=== PATIENT | female | born 1965 | race Caucasian/White ===

== ENCOUNTER 2022-06-16 17:51 | Inpatient (IN) | payer OTHER, SELFPAY ==
--- NOTE | ~2022-06-16 | XR_ITS ---
EXAMINATION: XR CHEST CLINICAL INFORMATION: Cough, fever, shortness of breath COMPARISON: None available. TECHNIQUE: Frontal and lateral views of the chest were obtained. FINDINGS: Frontal and lateral chest radiographs show patchy airspace opacities in the posterior left lower lobe. The right lung is clear. The cardiomediastinal silhouette is unremarkable. XR/XR chest 2V IMPRESSION: Patchy left lung base airspace opacities consistent with atelectasis or pneumonia. Follow-up is recommended to confirm clearing.
--- NOTE | 2022-06-16 18:17 | ECG_ITS ---
Test Reason : SOB Blood Pressure : / mmHG Vent. Rate : 095 BPM Atrial Rate : 095 BPM P-R Int : 164 ms QRS Dur : 080 ms QT Int : 326 ms P-R-T Axes : 021 001 -05 degrees QTc Int : 409 ms Normal sinus rhythm Inferior infarct , age undetermined Cannot rule out Anterior infarct , age undetermined Abnormal ECG No previous ECGs available Referred By: Cheyenne Taylor Electronically Signed By:YADIRA LONG
--- NOTE | 2022-06-16 18:20 | ED.URI ---
HPI - URI/Sore Throat General Chief Complaint: Upper Respiratory Symptoms <RACHEL Bruce - Last Filed: 06/16/22 20:07> Stated Complaint: dizziness/ coughing <RACHEL Bruce - Last Filed: 06/16/22 20:07> Time Seen by Provider: 06/16/22 18:41 <RACHEL Bruce - Last Filed: 06/16/22 20:07> Source: patient <Brianna Mi MD - Last Filed: 06/16/22 20:19> Mode of arrival: ambulatory <Brianna Mi MD - Last Filed: 06/16/22 20:19> History of Present Illness HPI Narrative: This is a 56-year-old female who quit smoking approximately 3 months ago and then 2 weeks ago states that she developed a cough with chest congestion and she followed up with her physician who then start her on 1 week of antibiotics, patient states that she felt better initially but has progressively worsened since completion of the antibiotics. Patient reports associated fever, chills but no sore throat and states that her ears have pain but it feels more like she is congested. Patient also reports increasing shortness of breath and body aches as well as a headache. She denies any recent travel, calf pain or swelling. <Brianna Mi MD - Last Filed: 06/16/22 20:19> Related Data Allergies/Adverse Reactions: Allergies Allergy/AdvReac Type Severity Reaction Status Date / Time Erythromycin Allergy Unknown Dizzy Uncoded 05/03/14 00:00 <RACHEL Bruce - Last Filed: 06/16/22 20:07> Review of Systems Review of Systems: Pertinent positives and negatives as stated in HPI <Brianna Mi MD - Last Filed: 06/16/22 20:19> PMFSH Past Medical History Source: nursing notes reviewed <Brianna Mi MD - Last Filed: 06/16/22 20:19> Medical History: Medical History (Updated 06/16/22 @ 20:19 by Brianna Mi MD) Mood disorder <RACHEL Bruce - Last Filed: 06/16/22 20:07> Social History Social History: Social History Advance Directives: No Advance Directives Information Provided: Yes <RACHEL Bruce - Last Filed: 06/16/22 20:07> Physical Exam Vital Signs: Vital Signs: Last Vital Signs Temp 101.0 F H 06/16/22 18:27 Pulse 96 06/16/22 18:27 Resp 20 06/16/22 18:27 BP 159/93 H 06/16/22 18:27 Pulse Ox 92 06/16/22 18:27 O2 Del Method Room Air 06/16/22 18:27 BMI result Body Mass Index 35.4 <RACHEL Bruce - Last Filed: 06/16/22 20:07> Vital Signs: Last Vital Signs Temp 101.0 F H 06/16/22 18:27 Pulse 96 06/16/22 18:27 Resp 20 06/16/22 18:27 BP 159/93 H 06/16/22 18:27 Pulse Ox 92 06/16/22 18:27 O2 Del Method Room Air 06/16/22 18:27 BMI result Body Mass Index 35.4 VITAL SIGNS: Reviewed. GENERAL: Well developed, well nourished, in no acute distress. HEAD: Normocephalic/atraumatic EYES: PERRLA, EOMI EARS: Ext canals without abnormality NOSE: Nares patent bilateral OROPHARYNX: no oral lesions noted, posterior pharynx clear NECK: Supple, no adenopathy LUNGS: Good inspiratory effort, decreased breath sounds left lower base, tachypnea is present, patient had to be placed on supplemental oxygen due to 89% O2 sats and has responded well. SpO2<93> on supplemental oxygen CARDIOVASCULAR: Regular rate and rhythm without noted murmurs, no JVD or lower extremity edema. ABDOMEN: Soft, non-tender, non-distended with bowel sounds. MUSCULOSKELETAL: No tenderness, deformities, or effusions noted on gross inspection. EXTREMITIES: No cyanosis, clubbing or edema. SKIN: Inspection of the skin reveals no rashes NEUROLOGIC: Alert and oriented x 4. Strength and sensation to light touch were grossly intact x 4. <Brianna iM MD - Last Filed: 06/16/22 20:19> Course Course Course Narrative: HANG-18:20PM - 56yoF who is presenting to the ER with complaints of 2 weeks of headaches, dizziness, general weakness, fatigue, chills, body aches, cough that has been productive intermittently and shortness of breath. Reports she is a daily smoker. Reports that she has been having an on and off cough since although this has worsened. She did take her temperature today at work and was 99.0. She admits to posttussive emesis. She denies any recent travel or sick contacts. She denies any changes in vision, neck pain/stiffness, sore throat, trouble swallowing or breathing, chest pain, dyspnea on exertion orthopnea, palpitations, paresthesias, nausea/vomiting/diarrhea, abdominal pain, leg swelling, calf tenderness, rashes or any other symptoms complaints or concerns at this time Plan: In triage she is tachycardic and febrile therefore 800 mg of Motrin or at this time along with blood cultures, lactic acid, chest x-ray, COVID/RSV/flu swab. Patient will be seen in the ED for further evaluation treatment. <RACHEL Bruce - Last Filed: 06/16/22 20:07> Medications Administered Discontinued Medications Generic Name Dose Route Start Last Admin Trade Name Freq PRN Reason Stop Dose Admin Ibuprofen 800 mg 06/16/22 18:16 06/16/22 19:10 Ibuprofen 800 Mg Tablet PO 06/16/22 18:17 800 mg ONCE ONE Administration <RACHEL Bruce - Last Filed: 06/16/22 20:07> Medications Administered Discontinued Medications Generic Name Dose Route Start Last Admin Trade Name Freq PRN Reason Stop Dose Admin Ibuprofen 800 mg 06/16/22 18:16 06/16/22 19:10 Ibuprofen 800 Mg Tablet PO 06/16/22 18:17 800 mg ONCE ONE Administration <Brianna Mi MD - Last Filed: 06/16/22 20:19> Medical Decision Making Medical Decision Making [facility] Narrative: 194: 56-year-old female with suspicion for underlying respiratory infection, I reviewed all investigations and suggestion of left lower lobe pneumonia, patient noted to be influenza A positive but given persistent shortness of breath/hypoxia in combination with persistent cough suspect superimposed bacterial infection despite lack of leukocytosis. Patient will receive antibiotics. <Brianna Mi MD - Last Filed: 06/16/22 20:19> Differential Diagnosis Please see the discussion above <Brianna Mi MD - Last Filed: 06/16/22 20:19> Consult Healthcare Provider Management of the patient was discussed with: Hospitalist <Brianna Mi MD - Last Filed: 06/16/22 20:19> 2000: I discussed the case with the inpatient hospitalist who accepts admission. <Brianna Mi MD - Last Filed: 06/16/22 20:19> Lab Data Please see the discussion above <Brianna Mi MD - Last Filed: 06/16/22 20:19> Result Diagrams: 06/16/22 18:27 06/16/22 18:27 <RACHEL Bruce - Last Filed: 06/16/22 20:07> Labs: Lab Results 06/16/22 06/16/22 06/16/22 Range/Units 18:27 18:27 18:27 WBC 6.3 (4.8-10.8) X10*3/uL RBC 4.61 (4.20-5.50) X10*6/uL Hgb 13.5 (12.0-16.0) g/dl Hct 41.4 (37.0-47.0) % MCV 89.8 (80.0-98.0) fL MCH 29.3 (27.0-33.0) pg MCHC 32.6 (31.0-35.0) g/dl RDW 14.6 (11.0-16.0) % Plt Count 285 (160-400) X10*3/uL MPV 9.6 (9.4-12.3) fL Immature Gran % (Auto) 0.2 (0.0-0.4) % Neut % (Auto) 81.0 H (45-73) % Lymph % (Auto) 6.2 L (20-40) % [place] % (Auto) 11.3 H (2-11) % Eos % (Auto) 0.5 (0-4) % Baso % (Auto) 0.8 (0-2) % Lymph # (Auto) 0.4 L (1.2-4.9) X10*3/uL [place] # (Auto) 0.7 (0.1-1.2) X10*3/uL Eos # (Auto) 0.0 (0.0-0.4) X10*3/uL Baso # (Auto) 0.1 (0.0-0.2) X10*3/uL Abs Immat Gran (auto) 0.01 (0.00-0.03) X10*3/uL Absolute Neuts (auto) 5.1 (2.0-8.3) x10*3/uL Absolute Nucleated RBC 0.000 (0.0-0.012) X10*3/uL Nucleated RBC % (auto) 0.0 (0.0-0.2) /100WBC PT 11.4 (10.0-13.1) SEC INR 1.0 (0.9-1.1) Sodium 135 (135-145) mmol/L Potassium 4.0 (3.3-5.1) mmol/L Chloride 103 (96-108) mmol/L Carbon Dioxide 23 (22-29) mmol/L Anion Gap 13 (12-20) BUN 11 (9-16) mg/dL Creatinine 0.81 (0.5-1.4) mg/dL Estim Creat Clear Calc 84.8 Estimated GFR > 60 Random Glucose 87 (60-115) mg/dL Lactic Acid (0.5-2.0) mmol/L Calcium 8.5 (8.4-10.2) mg/dL Magnesium 1.8 (1.6-2.6) mg/dL Total Bilirubin 0.5 (0.0-1.0) mg/dL AST 17 (5-31) U/L ALT 14 (0-31) U/L Alkaline Phosphatase 62 (39-117) U/L Total Protein 6.8 (6.5-8.0) g/dL Albumin 3.8 (3.5-5.0) g/dL Influenza Type A (PCR) (Negative) Influenza Type B (PCR) (Negative) RSV RNA Qual (PCR) (Negative) SARS-CoV-2 RNA (RT-PCR) (Negative) 06/16/22 06/16/22 Range/Units 18:27 18:27 WBC (4.8-10.8) X10*3/uL RBC (4.20-5.50) X10*6/uL Hgb (12.0-16.0) g/dl Hct (37.0-47.0) % MCV (80.0-98.0) fL MCH (27.0-33.0) pg MCHC (31.0-35.0) g/dl RDW (11.0-16.0) % Plt Count (160-400) X10*3/uL MPV (9.4-12.3) fL Immature Gran % (Auto) (0.0-0.4) % Neut % (Auto) (45-73) % Lymph % (Auto) (20-40) % [place] % (Auto) (2-11) % Eos % (Auto) (0-4) % Baso % (Auto) (0-2) % Lymph # (Auto) (1.2-4.9) X10*3/uL [place] # (Auto) (0.1-1.2) X10*3/uL Eos # (Auto) (0.0-0.4) X10*3/uL Baso # (Auto) (0.0-0.2) X10*3/uL Abs Immat Gran (auto) (0.00-0.03) X10*3/uL Absolute Neuts (auto) (2.0-8.3) x10*3/uL Absolute Nucleated RBC (0.0-0.012) X10*3/uL Nucleated RBC % (auto) (0.0-0.2) /100WBC PT (10.0-13.1) SEC INR (0.9-1.1) Sodium (135-145) mmol/L Potassium (3.3-5.1) mmol/L Chloride (96-108) mmol/L Carbon Dioxide (22-29) mmol/L Anion Gap (12-20) BUN (9-16) mg/dL Creatinine (0.5-1.4) mg/dL Estim Creat Clear Calc Estimated GFR Random Glucose (60-115) mg/dL Lactic Acid 1.1 (0.5-2.0) mmol/L Calcium (8.4-10.2) mg/dL Magnesium (1.6-2.6) mg/dL Total Bilirubin (0.0-1.0) mg/dL AST (5-31) U/L ALT (0-31) U/L Alkaline Phosphatase (39-117) U/L Total Protein (6.5-8.0) g/dL Albumin (3.5-5.0) g/dL Influenza Type A (PCR) POSITIVE A (Negative) Influenza Type B (PCR) NEGATIVE (Negative) RSV RNA Qual (PCR) NEGATIVE (Negative) SARS-CoV-2 RNA (RT-PCR) NEGATIVE (Negative) <RACHEL Bruce - Last Filed: 06/16/22 20:07> Lab Results 06/16/22 06/16/22 06/16/22 Range/Units 18:27 18:27 18:27 WBC 6.3 (4.8-10.8) X10*3/uL RBC 4.61 (4.20-5.50) X10*6/uL Hgb 13.5 (12.0-16.0) g/dl Hct 41.4 (37.0-47.0) % MCV 89.8 (80.0-98.0) fL MCH 29.3 (27.0-33.0) pg MCHC 32.6 (31.0-35.0) g/dl RDW 14.6 (11.0-16.0) % Plt Count 285 (160-400) X10*3/uL MPV 9.6 (9.4-12.3) fL Immature Gran % (Auto) 0.2 (0.0-0.4) % Neut % (Auto) 81.0 H (45-73) % Lymph % (Auto) 6.2 L (20-40) % [place] % (Auto) 11.3 H (2-11) % Eos % (Auto) 0.5 (0-4) % Baso % (Auto) 0.8 (0-2) % Lymph # (Auto) 0.4 L (1.2-4.9) X10*3/uL [place] # (Auto) 0.7 (0.1-1.2) X10*3/uL Eos # (Auto) 0.0 (0.0-0.4) X10*3/uL Baso # (Auto) 0.1 (0.0-0.2) X10*3/uL Abs Immat Gran (auto) 0.01 (0.00-0.03) X10*3/uL Absolute Neuts (auto) 5.1 (2.0-8.3) x10*3/uL Absolute Nucleated RBC 0.000 (0.0-0.012) X10*3/uL Nucleated RBC % (auto) 0.0 (0.0-0.2) /100WBC PT 11.4 (10.0-13.1) SEC INR 1.0 (0.9-1.1) Sodium 135 (135-145) mmol/L Potassium 4.0 (3.3-5.1) mmol/L Chloride 103 (96-108) mmol/L Carbon Dioxide 23 (22-29) mmol/L Anion Gap 13 (12-20) BUN 11 (9-16) mg/dL Creatinine 0.81 (0.5-1.4) mg/dL Estim Creat Clear Calc 84.8 Estimated GFR > 60 Random Glucose 87 (60-115) mg/dL Lactic Acid (0.5-2.0) mmol/L Calcium 8.5 (8.4-10.2) mg/dL Magnesium 1.8 (1.6-2.6) mg/dL Total Bilirubin 0.5 (0.0-1.0) mg/dL AST 17 (5-31) U/L ALT 14 (0-31) U/L Alkaline Phosphatase 62 (39-117) U/L Total Protein 6.8 (6.5-8.0) g/dL Albumin 3.8 (3.5-5.0) g/dL Influenza Type A (PCR) (Negative) Influenza Type B (PCR) (Negative) RSV RNA Qual (PCR) (Negative) SARS-CoV-2 RNA (RT-PCR) (Negative) 06/16/22 06/16/22 Range/Units 18:27 18:27 WBC (4.8-10.8) X10*3/uL RBC (4.20-5.50) X10*6/uL Hgb (12.0-16.0) g/dl Hct (37.0-47.0) % MCV (80.0-98.0) fL MCH (27.0-33.0) pg MCHC (31.0-35.0) g/dl RDW (11.0-16.0) % Plt Count (160-400) X10*3/uL MPV (9.4-12.3) fL Immature Gran % (Auto) (0.0-0.4) % Neut % (Auto) (45-73) % Lymph % (Auto) (20-40) % [place] % (Auto) (2-11) % Eos % (Auto) (0-4) % Baso % (Auto) (0-2) % Lymph # (Auto) (1.2-4.9) X10*3/uL [place] # (Auto) (0.1-1.2) X10*3/uL Eos # (Auto) (0.0-0.4) X10*3/uL Baso # (Auto) (0.0-0.2) X10*3/uL Abs Immat Gran (auto) (0.00-0.03) X10*3/uL Absolute Neuts (auto) (2.0-8.3) x10*3/uL Absolute Nucleated RBC (0.0-0.012) X10*3/uL Nucleated RBC % (auto) (0.0-0.2) /100WBC PT (10.0-13.1) SEC INR (0.9-1.1) Sodium (135-145) mmol/L Potassium (3.3-5.1) mmol/L Chloride (96-108) mmol/L Carbon Dioxide (22-29) mmol/L Anion Gap (12-20) BUN (9-16) mg/dL Creatinine (0.5-1.4) mg/dL Estim Creat Clear Calc Estimated GFR Random Glucose (60-115) mg/dL Lactic Acid 1.1 (0.5-2.0) mmol/L Calcium (8.4-10.2) mg/dL Magnesium (1.6-2.6) mg/dL Total Bilirubin (0.0-1.0) mg/dL AST (5-31) U/L ALT (0-31) U/L Alkaline Phosphatase (39-117) U/L Total Protein (6.5-8.0) g/dL Albumin (3.5-5.0) g/dL Influenza Type A (PCR) POSITIVE A (Negative) Influenza Type B (PCR) NEGATIVE (Negative) RSV RNA Qual (PCR) NEGATIVE (Negative) SARS-CoV-2 RNA (RT-PCR) NEGATIVE (Negative) <Brianna Mi MD - Last Filed: 06/16/22 20:19> Independent Interpretation I performed an independent interpretation of an: EKG <Brianna Mi MD - Last Filed: 06/16/22 20:19> Interpretation: Normal sinus rhythm, HR-95, no STEMI, NE/QRS/QTC are within normal limits. <Brianna Mi MD - Last Filed: 06/16/22 20:19> Radiology Impression Radiologist Impression: My interpretation is in agreement with radiology's impression of the imaging studies. <Brianna iM MD - Last Filed: 06/16/22 20:19> Discharge Plan Discharge Clinical Impression: Acute respiratory failure with hypoxia, Pneumonia, Viral syndrome, Influenza A <RACHEL Bruce - Last Filed: 06/16/22 20:07> Patient Disposition: Admitted As Inpatient <RACHEL Bruce - Last Filed: 06/16/22 20:07>
[2022-06-16 18:27] VITALS: BP 159/93; PULSE 96; RESP 20; TEMP 38.3; O2SAT 92; BMI 35.4
[2022-06-16 18:37] LABS: Basophils Absolute Auto 0.1 X10*3/uL (0.0-0.2); Basophils Percent Auto 0.8 % (0-2); Eosinophils Percent Auto 0.5 % (0-4); Hematocrit 41.4 % (37.0-47.0); Hemoglobin 13.5 g/dl (12.0-16.0); Imm Gran Abs Auto 0.01 X10*3/uL (0.00-0.03); Imm Gran Pct Auto 0.2 % (0.0-0.4); Lymphocytes Absolute Auto 0.4 X10*3/uL (1.2-4.9); Lymphocytes Percent Auto 6.2 % (20-40); MANUAL DIFF FLAG NO; Mean Corpuscular HGB Conc 32.6 g/dl (31.0-35.0); Mean Corpuscular Hemoglobin 29.3 pg (27.0-33.0); Mean Corpuscular Volume 89.8 fL (80.0-98.0); Mean Platelet Volume 9.6 fL (9.4-12.3); Monocytes Absolute Auto 0.7 X10*3/uL (0.1-1.2); Monocytes Percent Auto 11.3 % (2-11); Neutrophils Absolute Auto 5.1 x10*3/uL (2.0-8.3); Platelet Count 285 X10*3/uL (160-400); Red Blood Count 4.61 X10*6/uL (4.20-5.50); Red Cell Distribution Width 14.6 % (11.0-16.0); White Blood Count 6.3 X10*3/uL (4.8-10.8)
[2022-06-16 18:46] LABS: Prothrombin Time 11.4 SEC (10.0-13.1)
[2022-06-16 18:54] LABS: Lactic Acid 1.1 mmol/L (0.5-2.0)
[2022-06-16 19:01] LABS: Alanine Aminotransferase 14 U/L (0-31); Albumin Level 3.8 g/dL (3.5-5.0); Alkaline Phosphatase 62 U/L (39-117); Anion Gap 13 (12-20); Aspartate Amino Transferase 17 U/L (5-31); Bilirubin Total 0.5 mg/dL (0.0-1.0); Blood Urea Nitrogen 11 mg/dL (9-16); Calcium 8.5 mg/dL (8.4-10.2); Carbon Dioxide 23 mmol/L (22-29); Chloride 103 mmol/L (96-108); Creatinine Clr Calc Pharmacy 84.8; Estimated Glomerular Filt Rate > 60; Glucose Random 87 mg/dL (60-115); Magnesium 1.8 mg/dL (1.6-2.6); Sodium 135 mmol/L (135-145); Total Protein 6.8 g/dL (6.5-8.0)
[2022-06-16] MEDS: Ibuprofen 800 MG TABLET PO (19:10)
[2022-06-16 19:49] LABS: Influenza A PCR POSITIVE (Negative); Influenza B PCR NEGATIVE (Negative); Resp Syncy Virus RNA Qual PCR NEGATIVE (Negative); SARS COV2 PCR INHOUSE NEGATIVE (Negative)
--- NOTE | 2022-06-16 20:03 | PM.IMHP ---
History of Present Illness Date of Service: 06/16/22 Chief Complaint: Dyspnea This is a 56-year-old female with pertinent history of mood disorder, former tobacco use disorder who presents to the emergency department for evaluation of dyspnea, cough, fevers/chills. Patient states she has had fever and chills for the last 2 weeks. It initially got better and about 5-6 days ago she developed a productive cough and restarted to have fevers and chills. Patient states she quit smoking. Also has associated generalized malaise and poor p.o. intake. Patient's dyspnea is worse with exertion. No wheezing. Sputum is yellowish/whitish in color. Patient denies chest discomfort, palpitations, abdominal pain, changes in urinary or bowel habits. Patient finished amoxicillin for possible upper respiratory tract infection given by PCP. In the emergency department, patient requiring 2 L supplemental oxygen. Review of Systems Constitutional: Constitutional: Reports chills, Reports fever(s), Reports lethargy and Reports malaise Cardiovascular: Cardiovascular: Reports dyspnea and Reports dyspnea on exertion Respiratory: Respiratory: Reports change in phlegm color, Reports cough, Reports dyspnea and Reports dyspnea on exertion PMFSH Medical History Mood disorder Functional capacity: independent ambulation Pertinent family history: No family history of CAD Social History Advance Directives: No Advance Directives Information Provided: Yes Meds Allergies Allergy/AdvReac Type Severity Reaction Status Date / Time Erythromycin Allergy Unknown Dizzy Uncoded 05/03/14 00:00 Active Medications: Current Medications Acetaminophen (Acetaminophen 325 Mg Tablet) 650 mg PO Q6H PRN PRN Reason: Pain, Mild (Pain Scale 1-3) Enoxaparin Sodium (Enoxaparin Sodium 40 Mg/0.4 Ml Syringe) 40 mg SUBCUT Q24H DARIA Sodium Chloride (Ns) 1,000 mls @ 999 mls/hr IV .Q1H1M [facility] Stop: 06/16/22 21:00 Sodium Chloride (0.9 % Sodium Chloride Flush 3 Ml Syringe) 3 ml IVFLUSH QSHIFT DARIA Physical Exam Vital Signs and Narrative: Vital Signs: Last Vital Signs Temp 101.0 F H 06/16/22 18:27 Pulse 96 06/16/22 18:27 Resp 20 06/16/22 18:27 BP 159/93 H 06/16/22 18:27 Pulse Ox 92 06/16/22 18:27 O2 Del Method Room Air 06/16/22 18:27 BMI result Body Mass Index 35.4 Middle-aged female lying in bed in mild distress on supplemental oxygen Neck supple, no JVD Regular rate and rhythm, S1-S2 heard Left-sided crackles without wheezing Abdomen soft nontender, no guarding, no rigidity Patient is awake, alert and oriented to self, place, time and person ; no focal motor deficit Psych: Normal mood No pedal edema Results Labs 06/16/22 18:27 06/16/22 18:27 Labs: Laboratory Results - last 24 hr 06/16/22 06/16/22 06/16/22 18:27 18:27 18:27 MCV 89.8 MCH 29.3 MCHC 32.6 RDW 14.6 Plt Count 285 MPV 9.6 Immature Gran % (Auto) 0.2 Neut % (Auto) 81.0 H Lymph % (Auto) 6.2 L [place] % (Auto) 11.3 H Eos % (Auto) 0.5 Baso % (Auto) 0.8 Lymph # (Auto) 0.4 L [place] # (Auto) 0.7 Eos # (Auto) 0.0 Baso # (Auto) 0.1 Abs Immat Gran (auto) 0.01 Absolute Neuts (auto) 5.1 Absolute Nucleated RBC 0.000 Nucleated RBC % (auto) 0.0 PT 11.4 INR 1.0 Anion Gap 13 Estim Creat Clear Calc 84.8 Estimated GFR > 60 Random Glucose 87 Lactic Acid Calcium 8.5 Magnesium 1.8 Total Bilirubin 0.5 AST 17 ALT 14 Alkaline Phosphatase 62 Total Protein 6.8 Albumin 3.8 Influenza Type A (PCR) Influenza Type B (PCR) RSV RNA Qual (PCR) SARS-CoV-2 RNA (RT-PCR) 06/16/22 06/16/22 18:27 18:27 MCV MCH MCHC RDW Plt Count MPV Immature Gran % (Auto) Neut % (Auto) Lymph % (Auto) [place] % (Auto) Eos % (Auto) Baso % (Auto) Lymph # (Auto) [place] # (Auto) Eos # (Auto) Baso # (Auto) Abs Immat Gran (auto) Absolute Neuts (auto) Absolute Nucleated RBC Nucleated RBC % (auto) PT INR Anion Gap Estim Creat Clear Calc Estimated GFR Random Glucose Lactic Acid 1.1 Calcium Magnesium Total Bilirubin AST ALT Alkaline Phosphatase Total Protein Albumin Influenza Type A (PCR) POSITIVE A Influenza Type B (PCR) NEGATIVE RSV RNA Qual (PCR) NEGATIVE SARS-CoV-2 RNA (RT-PCR) NEGATIVE Imaging Radiologist's Impressions: Impressions Chest X-Ray 06/16/22 19:15 IMPRESSION: Patchy left lung base airspace opacities consistent with atelectasis or pneumonia. Follow-up is recommended to confirm clearing. Assessment and Plan (1) Hypoxia: Status: Acute Plan This is a 56-year-old female with pertinent history of mood disorder, former tobacco use disorder who presents to the emergency department for evaluation of dyspnea, cough, fevers/chills. #. Acute hypoxemic respiratory failure and sepsis due to influenza a infection with concerns of bacterial superinfection: Will admit patient with isolation precautions. Initiating Tamiflu and empiric IV antibiotics. Resuscitated with IV crystalloids. Blood culture and sputum culture obtained. #. Mood disorder: Continue Lexapro and Wellbutrin Med rec pending DVT prophylaxis: Lovenox 40 mg daily Full code Regular diet Admit as inpatient and will require two night minimum hospital stay for supplemental oxygen and IV antibiotics Time Spent With Patient Time: Total time managing care of this patient today ____ minutes. Quality Stroke Does the patient have a stroke diagnosis?: No VTE Prior VTE?: No VTE Risk Level:: Medical - moderate - high VTE Device Contraindication: Treatment Not Indicated VTE Drug Contraindication: N/A - Med Ordered
[2022-06-16 20:21] VITALS: BP 130/77; PULSE 101; RESP 16; TEMP 37.1; O2SAT 87
[2022-06-16] MEDS: 0.9 % Sodium Chloride 1,000 ML 999 ML IV (20:21)
[2022-06-16 20:23] VITALS: O2SAT 92
[2022-06-16] MEDS: cefTRIAXone sodium 1 GM in 0.9 % Sodium Chloride 50 ML IV (20:52)
[2022-06-16] MEDS: Oseltamivir Phosphate 75 MG CAPSULE PO (20:52)
[2022-06-16] MEDS: Acetaminophen 325 MG TABLET 975 MG PO (20:52)
[2022-06-16 21:03] LABS: VBG Base Excess -0.4 mmol/L; VBG HCO3 22 mmol/L (22-26); VBG pCO2 33 mmHg; VBG pH 7.44 (7.32-7.43); VBG pO2 47 mmHg
[2022-06-16 21:04] LABS: Venous Blood Gas Refer to POC result
--- NOTE | 2022-06-16 21:16 | PC.NURSE ---
PT ENDURING FREQUENT COUGHING FITS, NON PRODUCTIVE. LS DIM THROUGHOUT. PT HYPOXIC TO 87% ON RA DESPITE ATTEMPTS TO RESTORE WITH DEEP BREATHING TECHNIQUES & REPOSITIONING. MD AWARE. PT HAS BEEN ON 2L SUPP O2 WITH SPO2 IN LOW 90S. NOW AFEBRILE, SKIN PWD. NSR ON MONITOR.
--- NOTE | 2022-06-16 21:25 | PHA.MEDREC ---
Pharmacy Consult ? Medication Reconciliation Pharmacy has completed the medication reconciliation. Patient has one day left of abx Lupillo
[2022-06-16] MEDS: Enoxaparin Sodium 40 MG/0.4 ML SYRINGE SUBCUT (22:03)
[2022-06-16] MEDS: Azithromycin 500 MG in 0.9 % Sodium Chloride 250 ML 125 MG IV (22:05)
[2022-06-16 22:20] VITALS: BP 109/61; PULSE 92; RESP 20; TEMP 37.1; O2SAT 94
[2022-06-17] VITALS (10 sets, daily range): BP systolic 114–157; BP diastolic 66–94; PULSE 62–89; RESP 16–24; TEMP 36.7–38.2; O2SAT 87–95; BMI 35.4
[2022-06-17] MEDS: Acetaminophen 325 MG TABLET 650 MG PO ×3 (04:37→21:41)
[2022-06-17 06:02] LABS: MANUAL DIFF FLAG NO
[2022-06-17 06:19] LABS: Anion Gap 14 (12-20); Blood Urea Nitrogen 8 mg/dL (9-16); Calcium 7.7 mg/dL (8.4-10.2); Carbon Dioxide 20 mmol/L (22-29); Chloride 108 mmol/L (96-108); Creatinine Clr Calc Pharmacy 101.1; Estimated Glomerular Filt Rate > 60; Glucose Random 95 mg/dL (60-115); Potassium 3.9 mmol/L (3.3-5.1); Sodium 138 mmol/L (135-145)
[2022-06-17 06:23] LABS: Basophils Percent Auto 0.7 % (0-2); Eosinophils Percent Auto 0.5 % (0-4); Hematocrit 36.8 % (37.0-47.0); Imm Gran Abs Auto 0.02 X10*3/uL (0.00-0.03); Imm Gran Pct Auto 0.5 % (0.0-0.4); Lymphocytes Absolute Auto 0.5 X10*3/uL (1.2-4.9); Lymphocytes Percent Auto 11.6 % (20-40); Mean Corpuscular HGB Conc 32.6 g/dl (31.0-35.0); Mean Corpuscular Hemoglobin 29.2 pg (27.0-33.0); Mean Corpuscular Volume 89.5 fL (80.0-98.0); Mean Platelet Volume 10.3 fL (9.4-12.3); Monocytes Absolute Auto 0.5 X10*3/uL (0.1-1.2); Monocytes Percent Auto 10.7 % (2-11); Neutrophils Absolute Auto 3.3 x10*3/uL (2.0-8.3); Platelet Count 231 X10*3/uL (160-400); Red Blood Count 4.11 X10*6/uL (4.20-5.50); Red Cell Distribution Width 14.6 % (11.0-16.0); White Blood Count 4.4 X10*3/uL (4.8-10.8)
--- NOTE | 2022-06-17 07:10 | PC.NURSE ---
Patient resting comfortably no distress noted tolerating O2 by nasal cannula remains isolation for flu. Will CTM
--- NOTE | 2022-06-17 07:42 | PC.NURSE ---
Attempt to call report to floor RN will call back
--- NOTE | 2022-06-17 07:45 | PC.NURSE ---
Report to Lucila HART
--- NOTE | 2022-06-17 08:49 | MHC.CM.PN ---
CM MET WITH PT AT BEDSIDE. PT LIVES WITH FAMILY IN A [facility]. INDEPENDENT AT BASELINE. EMPLOYED P/T. NO HCP, DECLINES AT THIS TIME. + COVID VAX X2 WITH PFI[employer]. PCP AT [facility] [place] (LANRE CERON) DP: HOME, NO SERVICES ANTICIPATED. FAMILY WILL TRANSPORT AT [place]. CM WILL CONTINUE TO FOLLOW.
[2022-06-17] MEDS: Oseltamivir Phosphate 75 MG CAPSULE PO ×2 (09:31→20:44)
[2022-06-17] MEDS: 0.9 % Sodium Chloride Flush 3 ML SYRINGE IVFLUSH ×2 (09:31→20:48)
[2022-06-17] MEDS: buPROPion HCl XL 150 MG TAB.ER.24H PO (09:31)
[2022-06-17] MEDS: predniSONE 20 MG TABLET 40 MG PO (09:31)
--- NOTE | 2022-06-17 12:17 | HO.PM.IMPN ---
Subjective Subjective Date of Service: 06/17/22 Interval History: weakness Physical Exam Vital Signs: Vital Signs: Last Vital Signs Temp 100.8 F H 06/17/22 11:21 Pulse 82 06/17/22 11:21 Resp 17 06/17/22 11:21 BP 143/81 H 06/17/22 11:21 Pulse Ox 92 06/17/22 11:21 O2 Del Method Room Air 06/17/22 11:21 O2 Flow Rate 2 06/17/22 07:23 BMI result Body Mass Index 35.4 weakn, tired, wheezy Objective Data Active Medications Acetaminophen (Acetaminophen 325 Mg Tablet) 650 mg PO Q6H PRN PRN Reason: Pain, Mild (Pain Scale 1-3) Last Admin: 06/17/22 10:50 Dose: 650 mg Documented By: PILI Acetaminophen (Acetaminophen Supp 650 Mg Supp.Rect) 650 mg [place] Q6H PRN PRN Reason: Pain, Mild (Pain Scale 1-3) Bupropion HCl (Bupropion Hcl Xl 150 Mg Tab.Er.24h) 150 mg PO DAILY [facility] Last Admin: 06/17/22 09:31 Dose: 150 mg Documented By: PILI Albuterol Sulfate 2.5 mg/ (Ipratropium [place] 0.5 mg) 0 mg INHALE RQ4H WHILE AWAKE [facility] Last Admin: 06/17/22 11:54 Dose: Not Given Documented By: ETHAN Non-Admin Reason: See Note Enoxaparin Sodium (Enoxaparin Sodium 40 Mg/0.4 Ml Syringe) 40 mg SUBCUT Q24H [facility] Last Admin: 06/16/22 22:03 Dose: 40 mg Documented By: QUYEN Escitalopram Oxalate (Escitalopram Oxalate 5 Mg Tablet) 5 mg PO BEDTIME [facility] Ceftriaxone Sodium 1 gm/ (Sodium Chloride) 50 mls @ 100 mls/hr IV Q24H [facility] Last Infusion: 06/16/22 21:43 Dose: 0 mls/hr Documented By: RASHMI Azithromycin 500 mg/ Sodium (Chloride) 250 mls @ 125 mls/hr IV Q24H [facility] Last Infusion: 06/17/22 00:25 Dose: 0 mls/hr Documented By: ABDOULAYE Melatonin (Melatonin 3 Mg Tablet) 6 mg PO BEDTIME PRN PRN Reason: Insomnia Ondansetron HCl (Ondansetron Hcl 4 Mg/2 Ml Vial) 4 mg IVPUSH Q8H PRN PRN Reason: Nausea and Vomiting Oseltamivir Phosphate (Oseltamivir Phosphate 75 Mg Capsule) 75 mg PO BID [facility] Stop: 06/21/22 09:01 Last Admin: 06/17/22 09:31 Dose: 75 mg Documented By: PILI Pharmacy Consult (Consult Rx Perform Med Rec) 1 each MISCELLANE ONCE PRN PRN Reason: Consult order Prednisone (Prednisone 20 Mg Tablet) 40 mg PO DAILY [facility] Last Admin: 06/17/22 09:31 Dose: 40 mg Documented By: PILI Sodium Chloride (0.9 % Sodium Chloride Flush 3 Ml Syringe) 3 ml IVFLUSH QSHIFT [facility] Last Admin: 06/17/22 09:31 Dose: 3 ml Documented By: PILI Labs 06/17/22 05:51 06/17/22 05:51 Labs: Laboratory Results - last 24 hr 06/16/22 06/16/22 06/16/22 18:27 18:27 18:27 MCV 89.8 MCH 29.3 MCHC 32.6 RDW 14.6 Plt Count 285 MPV 9.6 Immature Gran % (Auto) 0.2 Neut % (Auto) 81.0 H Lymph % (Auto) 6.2 L [place] % (Auto) 11.3 H Eos % (Auto) 0.5 Baso % (Auto) 0.8 Lymph # (Auto) 0.4 L [place] # (Auto) 0.7 Eos # (Auto) 0.0 Baso # (Auto) 0.1 Abs Immat Gran (auto) 0.01 Absolute Neuts (auto) 5.1 Absolute Nucleated RBC 0.000 Nucleated RBC % (auto) 0.0 PT 11.4 INR 1.0 VBG pH VBG pCO2 VBG pO2 VBG HCO3 VBG O2 Saturation VBG Base Excess Anion Gap 13 Estim Creat Clear Calc 84.8 Estimated GFR > 60 Random Glucose 87 Lactic Acid Calcium 8.5 Magnesium 1.8 Total Bilirubin 0.5 AST 17 ALT 14 Alkaline Phosphatase 62 Total Protein 6.8 Albumin 3.8 Influenza Type A (PCR) Influenza Type B (PCR) RSV RNA Qual (PCR) SARS-CoV-2 RNA (RT-PCR) 06/16/22 06/16/22 06/16/22 18:27 18:27 20:22 MCV MCH MCHC RDW Plt Count MPV Immature Gran % (Auto) Neut % (Auto) Lymph % (Auto) [place] % (Auto) Eos % (Auto) Baso % (Auto) Lymph # (Auto) [place] # (Auto) Eos # (Auto) Baso # (Auto) Abs Immat Gran (auto) Absolute Neuts (auto) Absolute Nucleated RBC Nucleated RBC % (auto) PT INR VBG pH 7.44 H VBG pCO2 33 VBG pO2 47 VBG HCO3 22 VBG O2 Saturation 79.0 VBG Base Excess -0.4 Anion Gap Estim Creat Clear Calc Estimated GFR Random Glucose Lactic Acid 1.1 Calcium Magnesium Total Bilirubin AST ALT Alkaline Phosphatase Total Protein Albumin Influenza Type A (PCR) POSITIVE A Influenza Type B (PCR) NEGATIVE RSV RNA Qual (PCR) NEGATIVE SARS-CoV-2 RNA (RT-PCR) NEGATIVE 06/17/22 06/17/22 05:51 05:51 MCV 89.5 MCH 29.2 MCHC 32.6 RDW 14.6 Plt Count 231 MPV 10.3 Immature Gran % (Auto) 0.5 H Neut % (Auto) 76.0 H Lymph % (Auto) 11.6 L [place] % (Auto) 10.7 Eos % (Auto) 0.5 Baso % (Auto) 0.7 Lymph # (Auto) 0.5 L [place] # (Auto) 0.5 Eos # (Auto) 0.0 Baso # (Auto) 0.0 Abs Immat Gran (auto) 0.02 Absolute Neuts (auto) 3.3 Absolute Nucleated RBC 0.000 Nucleated RBC % (auto) 0.0 PT INR VBG pH VBG pCO2 VBG pO2 VBG HCO3 VBG O2 Saturation VBG Base Excess Anion Gap 14 Estim Creat Clear Calc 101.1 Estimated GFR > 60 Random Glucose 95 Lactic Acid Calcium 7.7 L D Magnesium Total Bilirubin AST ALT Alkaline Phosphatase Total Protein Albumin Influenza Type A (PCR) Influenza Type B (PCR) RSV RNA Qual (PCR) SARS-CoV-2 RNA (RT-PCR) Assessment and Plan (1) Acute respiratory failure with hypoxia: Status: Acute Plan 56F with pertinent history of mood disorder, former tobacco use disorder who presented to the emergency department for evaluation of dyspnea, cough, fevers/chills. Acute hypoxemic respiratory failure and sepsis due to influenza a infection with concerns of bacterial superinfection and acute bronchitis tamiflu, prednisone, bronchodilators empiric rocpehin/azitrho Mood disorder Continue Lexapro and Wellbutrin DVT prophylaxis:? Lovenox 40 mg daily Full code reason for continued hospitalization: sob Time Spent With Patient Time: Total time managing care of this patient today ____ minutes. Quality Stroke Does the patient have a stroke diagnosis?: No VTE Prior VTE?: No VTE Risk Level:: Medical - moderate - high VTE Device Contraindication: Treatment Not Indicated VTE Drug Contraindication: N/A - Med Ordered
[2022-06-17] MEDS: Escitalopram Oxalate 5 MG TABLET PO (20:44)
[2022-06-17] MEDS: Enoxaparin Sodium 40 MG/0.4 ML SYRINGE SUBCUT (20:45)
[2022-06-17] MEDS: Melatonin 3 MG TABLET 6 MG PO (20:45)
[2022-06-17] MEDS: cefTRIAXone sodium 1 GM in 0.9 % Sodium Chloride 50 ML IV (20:52)
[2022-06-17] MEDS: Azithromycin 500 MG in 0.9 % Sodium Chloride 250 ML 125 MG IV (21:35)
[2022-06-18 03:42] VITALS: BP 122/80; PULSE 53; RESP 20; TEMP 36.4; O2SAT 91
[2022-06-18 07:18] LABS: Hematocrit 37.7 % (37.0-47.0); Hemoglobin 12.2 g/dl (12.0-16.0); Mean Corpuscular HGB Conc 32.4 g/dl (31.0-35.0); Mean Corpuscular Volume 89.5 fL (80.0-98.0); Mean Platelet Volume 9.9 fL (9.4-12.3); Platelet Count 232 X10*3/uL (160-400); Red Blood Count 4.21 X10*6/uL (4.20-5.50); Red Cell Distribution Width 14.7 % (11.0-16.0); White Blood Count 3.3 X10*3/uL (4.8-10.8)
[2022-06-18 07:27] LABS: Anion Gap 13 (12-20); Blood Urea Nitrogen 10 mg/dL (9-16); Calcium 7.8 mg/dL (8.4-10.2); Carbon Dioxide 23 mmol/L (22-29); Chloride 105 mmol/L (96-108); Creatinine Clr Calc Pharmacy 89.3; Estimated Glomerular Filt Rate > 60; Glucose Fasting 85 mg/dL (60-99); Potassium 3.5 mmol/L (3.3-5.1); Sodium 137 mmol/L (135-145)
[2022-06-18 08:00] VITALS: BP 120/77; PULSE 58; RESP 15; TEMP 36.9; O2SAT 91
[2022-06-18 08:26] LABS: Glucose, Whole Blood 87 mg/dL (60-115)
[2022-06-18] MEDS: predniSONE 20 MG TABLET 40 MG PO (08:37)
[2022-06-18] MEDS: 0.9 % Sodium Chloride Flush 3 ML SYRINGE IVFLUSH ×3 (08:38→23:58)
[2022-06-18] MEDS: buPROPion HCl XL 150 MG TAB.ER.24H PO (08:38)
[2022-06-18] MEDS: Oseltamivir Phosphate 75 MG CAPSULE PO ×2 (08:38→20:00)
--- NOTE | 2022-06-18 09:43 | P.PNIM_ITS ---
Subjective Subjective Date of Service: 06/18/22 Interval History: weakness Physical Exam Vital Signs: Vital Signs: Last Vital Signs Temp 98.4 F 06/18/22 08:00 Pulse 58 06/18/22 08:00 Resp 15 06/18/22 08:00 BP 120/77 06/18/22 08:00 Pulse Ox 91 L 06/18/22 08:00 O2 Del Method Room Air 06/18/22 08:00 O2 Flow Rate 2 06/17/22 07:23 BMI result Body Mass Index 35.4 weakn, tired, wheezy Objective Data Active Medications Acetaminophen (Acetaminophen 325 Mg Tablet) 650 mg PO Q6H PRN PRN Reason: Pain, Mild (Pain Scale 1-3) Last Admin: 06/17/22 21:41 Dose: 650 mg Documented By: TANI Acetaminophen (Acetaminophen Supp 650 Mg Supp.Rect) 650 mg [place] Q6H PRN PRN Reason: Pain, Mild (Pain Scale 1-3) Bupropion HCl (Bupropion Hcl Xl 150 Mg Tab.Er.24h) 150 mg PO DAILY [facility] Last Admin: 06/18/22 08:38 Dose: 150 mg Documented By: SANDRA Albuterol Sulfate 2.5 mg/ (Ipratropium [place] 0.5 mg) 0 mg INHALE RQ4H WHILE AWAKE [facility] Last Admin: 06/18/22 07:52 Dose: Not Given Documented By: CHAVA Non-Admin Reason: Patient Refused Enoxaparin Sodium (Enoxaparin Sodium 40 Mg/0.4 Ml Syringe) 40 mg SUBCUT Q24H [facility] Last Admin: 06/17/22 20:45 Dose: 40 mg Documented By: TANI Escitalopram Oxalate (Escitalopram Oxalate 5 Mg Tablet) 5 mg PO BEDTIME [facility] Last Admin: 06/17/22 20:44 Dose: 5 mg Documented By: TANI Ceftriaxone Sodium 1 gm/ (Sodium Chloride) 50 mls @ 100 mls/hr IV Q24H [facility] Last Infusion: 06/17/22 21:33 Dose: 0 mls/hr Documented By: TANI Azithromycin 500 mg/ Sodium (Chloride) 250 mls @ 125 mls/hr IV Q24H [facility] Last Infusion: 06/17/22 23:32 Dose: 0 mls/hr Documented By: TNAI Melatonin (Melatonin 3 Mg Tablet) 6 mg PO BEDTIME PRN PRN Reason: Insomnia Last Admin: 06/17/22 20:45 Dose: 6 mg Documented By: TANI Ondansetron HCl (Ondansetron Hcl 4 Mg/2 Ml Vial) 4 mg IVPUSH Q8H PRN PRN Reason: Nausea and Vomiting Oseltamivir Phosphate (Oseltamivir Phosphate 75 Mg Capsule) 75 mg PO BID [facility] Stop: 06/21/22 09:01 Last Admin: 06/18/22 08:38 Dose: 75 mg Documented By: SANDRA Pharmacy Consult (Consult Rx Perform Med Rec) 1 each MISCELLANE ONCE PRN PRN Reason: Consult order Prednisone (Prednisone 20 Mg Tablet) 40 mg PO DAILY [facility] Last Admin: 06/18/22 08:37 Dose: 40 mg Documented By: SANDRA Sodium Chloride (0.9 % Sodium Chloride Flush 3 Ml Syringe) 3 ml IVFLUSH QSHIFT [facility] Last Admin: 06/18/22 08:38 Dose: 3 ml Documented By: SANDRA Labs 06/18/22 06:43 06/18/22 06:43 Labs: Laboratory Results - last 24 hr 06/18/22 06/18/22 06/18/22 06:43 06:43 08:19 MCV 89.5 MCH 29.0 MCHC 32.4 RDW 14.7 Plt Count 232 MPV 9.9 Absolute Nucleated RBC 0.000 Nucleated RBC % (auto) 0.0 Anion Gap 13 Estim Creat Clear Calc 89.3 Estimated GFR > 60 POC Glucose 87 Fasting Glucose 85 Calcium 7.8 L Microbiology Microbiology Results: Microbiology 06/16/22 19:42 Blood Culture - Preliminary Blood - Venous No growth after 24 hours. 06/16/22 05:44 Blood Culture - Preliminary Blood - Venous No growth after 24 hours. 06/17/22 05:55 Gram Stain - Final Sputum - Expectorated Sputum Culture - Final Assessment and Plan (1) Acute respiratory failure with hypoxia: Status: Acute Plan 56F with pertinent history of mood disorder, former tobacco use disorder who presented to the emergency department for evaluation of dyspnea, cough, fevers/chills. Acute hypoxemic respiratory failure and sepsis due to influenza a infection with concerns of bacterial superinfection and acute bronchitis tamiflu, prednisone, bronchodilators empiric rocpehin/azitrho Mood disorder Continue Lexapro and Wellbutrin DVT prophylaxis:? Lovenox 40 mg daily Full code reason for continued hospitalization: sob, fevvers Time Spent With Patient Time: Total time managing care of this patient today ____ minutes. Quality Stroke Does the patient have a stroke diagnosis?: No VTE Prior VTE?: No VTE Risk Level:: Medical - moderate - high VTE Device Contraindication: Treatment Not Indicated VTE Drug Contraindication: N/A - Med Ordered
[2022-06-18 10:11] LABS: Appearance Urine Cloudy; Color Urine Yellow; Glucose Urine UA Negative (Negative); Leukocyte Esterase Urine Negative (Negative); Nitrite Urine Negative (Negative); PH 5.5 (5.0-9.0); Urine Blood Negative (Negative); Urine Ketones Negative (Negative); Urine Protein Negative (Neg-Trace)
[2022-06-18 11:27] VITALS: BP 122/77; PULSE 54; RESP 20; TEMP 37; O2SAT 90
[2022-06-18 15:30] VITALS: BP 132/85; PULSE 61; RESP 18; TEMP 36.9; O2SAT 92
[2022-06-18 19:12] VITALS: BP 112/68; PULSE 62; RESP 18; TEMP 36.8; O2SAT 90
[2022-06-18] MEDS: Escitalopram Oxalate 5 MG TABLET PO (20:00)
[2022-06-18] MEDS: cefTRIAXone sodium 1 GM in 0.9 % Sodium Chloride 50 ML IV (20:01)
[2022-06-18] MEDS: Azithromycin 500 MG in 0.9 % Sodium Chloride 250 ML 125 MG IV (20:09)
[2022-06-18] MEDS: Enoxaparin Sodium 40 MG/0.4 ML SYRINGE SUBCUT (22:45)
[2022-06-18 23:48] VITALS: BP 127/75; PULSE 67; RESP 18; TEMP 37.2; O2SAT 93
[2022-06-19 03:11] VITALS: BP 116/62; PULSE 80; RESP 18; TEMP 36.6; O2SAT 95
[2022-06-19 06:54] LABS: Hematocrit 38.1 % (37.0-47.0); Hemoglobin 12.5 g/dl (12.0-16.0); Mean Corpuscular HGB Conc 32.8 g/dl (31.0-35.0); Mean Corpuscular Volume 88.4 fL (80.0-98.0); Mean Platelet Volume 9.7 fL (9.4-12.3); Platelet Count 231 X10*3/uL (160-400); Red Blood Count 4.31 X10*6/uL (4.20-5.50); Red Cell Distribution Width 14.3 % (11.0-16.0); White Blood Count 4.3 X10*3/uL (4.8-10.8)
[2022-06-19 07:06] LABS: Anion Gap 14 (12-20); Blood Urea Nitrogen 11 mg/dL (9-16); Calcium 7.9 mg/dL (8.4-10.2); Carbon Dioxide 24 mmol/L (22-29); Chloride 105 mmol/L (96-108); Creatinine Clr Calc Pharmacy 89.3; Estimated Glomerular Filt Rate > 60; Glucose Fasting 79 mg/dL (60-99); Potassium 3.5 mmol/L (3.3-5.1); Sodium 139 mmol/L (135-145)
[2022-06-19 07:52] VITALS: BP 131/85; PULSE 51; RESP 20; TEMP 36.4; O2SAT 93
[2022-06-19 08:03] LABS: Glucose, Whole Blood 88 mg/dL (60-115)
--- NOTE | 2022-06-19 09:13 | P.DS_ITS ---
DS: Providers Provider Date of Service: 06/19/22 Date of admission: 06/16/22 20:01 Primary care physician: Crissy Saleh DS: Diagnosis Discharge Diagnosis (1) Acute respiratory failure with hypoxia: Status: Acute DS: Summary Hospital Course Hospital Course: from initial hpi: Chief Complaint: Dyspnea This is a 56-year-old female with pertinent history of mood disorder, former tobacco use disorder who presents to the emergency department for evaluation of dyspnea, cough, fevers/chills.? Patient states she has had fever and chills for the last 2 weeks.? It initially got better and about 5-6 days ago she developed a productive cough and restarted to have fevers and chills.? Patient states she quit smoking.? Also has associated generalized malaise and poor p.o. intake.? Patient's dyspnea is worse with exertion.? No wheezing.? Sputum is yellowish/whitish in color.? Patient denies chest discomfort, palpitations, abdominal pain, changes in urinary or bowel habits.? Patient finished amoxicillin for possible upper respiratory tract infection given by PCP. In the emergency department, patient requiring 2 L supplemental oxygen. hospital course: Patient was admitted for acute hypoxic respiratory failure and sepsis due to influenza a with concerns for bacterial superinfection complicated by acute bronchitis. Patient was treated with Tamiflu, prednisone, DuoNebs, Rocephin and azithromycin. Symptoms improved patient was able to be weaned off oxygen. She will be discharged on 5 more days of prednisone, 2 more days of Tamiflu, Augmentin. For mood disorder she will continue on Lexapro and Wellbutrin. Time Spent with Patient Time attestation: Total time managing care of this patient today ____ minutes. Discharge coordination time: Greater than 30 minutes Quality: Safe Use of Opioids Does Pt have an Active Cancer Diagnosis on the Problem List?: No Quality: Stroke Does the patient have a stroke diagnosis?: No Physical Exam Vital Signs: Vital Signs: Last Vital Signs Temp 97.6 F 06/19/22 07:52 Pulse 51 06/19/22 07:52 Resp 20 06/19/22 07:52 BP 131/85 06/19/22 07:52 Pulse Ox 93 06/19/22 07:52 O2 Del Method Room Air 06/19/22 07:52 O2 Flow Rate 2 06/17/22 07:23 BMI result Body Mass Index 35.4 General: AO X 3, no acute distress Resp: CTA bilateral, no accessory muscles used CVS: S1,S2,RRR GI: soft, non tender, non distended Neuro: motor grossly intact, alert Psych: appropriate affect, appropriate insight DS: Data Data Completed and Pending Labs on day of discharge: Laboratory Results - last 24 hr 06/18/22 06/19/22 06/19/22 Unknown 06:33 06:33 WBC 4.3 L RBC 4.31 Hgb 12.5 Hct 38.1 MCV 88.4 MCH 29.0 MCHC 32.8 RDW 14.3 Plt Count 231 MPV 9.7 Absolute Nucleated RBC 0.000 Nucleated RBC % (auto) 0.0 Sodium 139 Potassium 3.5 Chloride 105 Carbon Dioxide 24 Anion Gap 14 BUN 11 Creatinine 0.77 Estim Creat Clear Calc 89.3 Estimated GFR > 60 POC Glucose Fasting Glucose 79 Calcium 7.9 L Urine Color Yellow Urine Appearance Cloudy Urine pH 5.5 Ur Specific [place] 1.010 Urine Protein Negative Urine Glucose (UA) Negative Urine Ketones Negative Urine Blood Negative Urine Nitrite Negative Ur Leukocyte Esterase Negative 06/19/22 07:51 WBC RBC Hgb Hct MCV MCH MCHC RDW Plt Count MPV Absolute Nucleated RBC Nucleated RBC % (auto) Sodium Potassium Chloride Carbon Dioxide Anion Gap BUN Creatinine Estim Creat Clear Calc Estimated GFR POC Glucose 88 Fasting Glucose Calcium Urine Color Urine Appearance Urine pH Ur Specific [place] Urine Protein Urine Glucose (UA) Urine Ketones Urine Blood Urine Nitrite Ur Leukocyte Esterase Preliminary micro results at discharge 06/16/22 19:42 Blood Culture - Preliminary Blood - Venous No growth after 48 hours. 06/16/22 05:44 Blood Culture - Preliminary Blood - Venous No growth after 48 hours. Discharge Plan Discharge Anticipated Discharge Date/Time: 06/19/22 09:11 Patient Disposition: Home, Self-Care Discharge Diagnosis: flu, pna Referrals: Crissy Saleh [Other] - 1 Week Discharge Medications: New prednisone 20 mg Tablet 40 mg PO DAILY Qty: 10 0RF oseltamivir [Tamiflu] 75 mg Capsule 75 mg PO BID Qty: 4 0RF Continued citalopram 10 mg tablet 10 mg PO BEDTIME amoxicillin-pot clavulanate 875-125 mg tablet 1 tab PO Q12H bupropion HCl 150 mg tablet extended release 24 hr 150 mg PO DAILY Discharge Orders: Discharge Order (Routine); Ordered 06/19/22 Ordered By: Eduardo Dover Diet: Advance to usual diet Activity on Discharge: As tolerated Stand Alone Forms: Patient Portal Discharge page Care Plan Goals: recovery Health Concerns: flu, pn Plan of Treatment: complete augmenin, prednisone, tamiflu courses Assessment: see above
--- NOTE | 2022-06-19 09:29 | MHC.CM.PN ---
Patient has been medically cleared for dc to home today, self care.
[2022-06-19] MEDS: 0.9 % Sodium Chloride Flush 3 ML SYRINGE IVFLUSH (09:43)
[2022-06-19] MEDS: predniSONE 20 MG TABLET 40 MG PO (09:43)
[2022-06-19] MEDS: buPROPion HCl XL 150 MG TAB.ER.24H PO (09:43)
[2022-06-19] MEDS: Oseltamivir Phosphate 75 MG CAPSULE PO (09:43)
== END 2022-06-19 11:28 | disposition home or self-care (01) | DRG 720 ==
LOC: HO.ED 20:19 → HO.EDOVER 20:31 → HO.IMC 06-17 07:31
PROVIDERS: Physician Assistant Medical; Admitting Provider Student in an Organized Health Care Education/Training Program; Emergency Provider Student in an Organized Health Care Education/Training Program; PCP Physician Assistant; Visit Provider Internal Medicine
DX: A41.89 Other specified sepsis (principal); J10.00 Influenza due to other identified influenza virus with unspecified type of pneumonia; J20.9 Acute bronchitis, unspecified; Z20.822 Contact with and (suspected) exposure to COVID-19; Z87.891 Personal history of nicotine dependence; Z79.899 Other long term (current) drug therapy
CPT/HCPCS: 0241U; 36415; 71046; 80048; 80053; 81003; 82803; 82947; 83605; 83735; 85025; 85027; 85610; 87040; 87070; 87205; 93005; 94640; 99285; J0456; J0696; J1650

== ENCOUNTER 2023-01-19 11:10 | Outpatient (REF) | payer OTHER, SELFPAY ==
--- NOTE | ~2023-01-19 | XR_ITS ---
EXAMINATION: XR HIP, RIGHT XR HIP, LEFT CLINICAL INFORMATION: Pain COMPARISON: None available. TECHNIQUE: Single view the pelvis 2 views of each hip FINDINGS: No acute visible fracture or dislocation. Moderate to severe degenerative changes of the left femoral acetabular joint and mild degenerative changes of the right femoral acetabular joint. Degenerative arthropathy of the lumbosacral spine. 2 mm osseous fragment along the superior margin of the right pubic symphysis which may reflect sequela of remote trauma though chronicity is indeterminate. Joint spaces and alignment are otherwise maintained. Bowel gas is unremarkable. Soft tissues are unremarkable. XR/XR hip RT min 2V IMPRESSION: 1. No acute visible fracture or dislocation. 2. Moderate to severe degenerative changes of the left femoral acetabular joint and mild degenerative changes of the right femoral acetabular joint. 3. Degenerative arthropathy of the lumbosacral spine. 4. 2 mm osseous fragment along the superior margin of the right pubic symphysis which may reflect sequela of remote trauma though chronicity is indeterminate.
--- NOTE | ~2023-01-19 | XR_ITS ---
EXAMINATION: XR HIP, RIGHT XR HIP, LEFT CLINICAL INFORMATION: Pain COMPARISON: None available. TECHNIQUE: Single view the pelvis 2 views of each hip FINDINGS: No acute visible fracture or dislocation. Moderate to severe degenerative changes of the left femoral acetabular joint and mild degenerative changes of the right femoral acetabular joint. Degenerative arthropathy of the lumbosacral spine. 2 mm osseous fragment along the superior margin of the right pubic symphysis which may reflect sequela of remote trauma though chronicity is indeterminate. Joint spaces and alignment are otherwise maintained. Bowel gas is unremarkable. Soft tissues are unremarkable. XR/XR hip LT w PEL1V IMPRESSION: 1. No acute visible fracture or dislocation. 2. Moderate to severe degenerative changes of the left femoral acetabular joint and mild degenerative changes of the right femoral acetabular joint. 3. Degenerative arthropathy of the lumbosacral spine. 4. 2 mm osseous fragment along the superior margin of the right pubic symphysis which may reflect sequela of remote trauma though chronicity is indeterminate.
== END 2023-01-19 11:11 | disposition home or self-care (01) ==
LOC: HO.HOSX 11:10
PROVIDERS: Visit Provider Physician Assistant
DX: M16.0 Bilateral primary osteoarthritis of hip (principal)
CPT/HCPCS: 73502; 99202

== ENCOUNTER 2023-01-19 13:38 | Outpatient (AMB) | payer OTHER, SELFPAY ==
--- NOTE | 2023-01-19 13:45 | MHC.OFFVIS ---
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 Patient reports having ongoing pain for 6 months. She states that her left hip is worse than the right hip. Her pain is near the area. No previous treatment. She states that her pain is near the groin and glutes area. 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 The patient reports ongoing pain for 6 months. She claims the left hip is worse then the right hip. She reports her pain is near the groin and glute area. She denies any prior treatment. [facility] Medical History (Updated 01/19/23 @ 14:29 by Joyce Shelley) Mood disorder Social History Household Members: Family Do you presently have visiting nurse or other home services: No Patient Tobacco Use Status: Former Tobacco user service: No Current occupational status: employed Review of Systems Const All systems reviewed & are unremarkable except as noted in HPI and below Physical Exam Const General: cooperative and no acute distress Orientation/consciousness: patient oriented x3 Resp Effort & Inspection: normal respiratory effort and able to speak in complete sentences Cardio Peripheral pulses: Peripheral pulses 2+ throughout Skin General skin exam: no rashes or lesions noted Neuro General: patient oriented x3 Extrem Other: Bilateral hips: Normal to inspection. No ecchymosis, erythema, or edema. Limited internal and external rotation. No tenderness to palpation over the greater trochanteric bursa. 5/5 strength with resisted hip flexion, knee extension, abduction, and abduction. Able to perform straight leg raise. NVI. Assessment & Plan Assessment & Plan (1) Osteoarthritis of left hip: Code(s): M16.12 - Unilateral primary osteoarthritis, left hip Qualifiers: Osteoarthritis type: unspecified Qualified Code(s): M16.12 - Unilateral primary osteoarthritis, left hip (2) Osteoarthritis of right hip: Code(s): M16.11 - Unilateral primary osteoarthritis, right hip Qualifiers: Osteoarthritis type: unspecified Qualified Code(s): M16.11 - Unilateral primary osteoarthritis, right hip Plan Ms. Hugo is a 57-year-old female who presents in the office today, as a new patient, for an evaluation of bilateral hip pain. The patient reports ongoing pain for 6 months. She claims the left hip is worse then the right hip. She reports her pain is near the groin and glute area. She denies any prior treatment. I discussed the roles of conservative verses surgical treatment with the patient while in the office today. At this time she would like to move forward with bilateral hip arthrogram. She would like to move forward with the left hip injection and then the right, due to concern of pain caused by injections. She would like to request AM appointment. She was educated the injection can take a week to begin to give her relief. I have sent a prescription to the pharmacy for Dicolfenac 75 mg BID to be taken with food. I would like for her to call the office with an update on her symptom status. X-rays of the bilateral hips which were obtained while in the office today and were reviewed by me, Chel Lozada PA-C, revealed bilateral hip osteoarthritis. Left is worse then right. Orders: Orders XR hip LT w PEL1V 01/19/23 M25.559 - Pain in unspecified hip XR hip RT min 2V 01/19/23 M25.559 - Pain in unspecified hip FL arthrogram hip LT 01/19/23 M16.0 - Bilateral primary osteoarthritis of hip FL arthrogram hip RT 01/19/23 M16.0 - Bilateral primary osteoarthritis of hip Medications: New diclofenac sodium 75 mg PO BID PRN 60 tabs 0RF pain Patient Instructions: Scribed for Chel Lozada PA-C by Joyce Shelley medical billing supervisor, on 01/19/2023 at 1:43 pm, EST. Coding Level of Care Code New Pt Level 4 (25345) Diagnoses Osteoarthritis of left hip, unspecified osteoarthritis type M16.12 Osteoarthritis type: unspecified Osteoarthritis of right hip, unspecified osteoarthritis type M16.11 Osteoarthritis type: unspecified
== END 2023-01-19 14:23 | disposition home or self-care (01) ==
PROVIDERS: PCP Physician Assistant; Visit Provider Physician Assistant
DX: M16.0 Bilateral primary osteoarthritis of hip (principal)
CPT/HCPCS: 99204

== ENCOUNTER 2023-02-01 12:55 | Outpatient (REF) | payer OTHER, SELFPAY ==
--- NOTE | ~2023-02-01 | FL_ITS ---
LEFT HIP STEROID INJECTION INDICATIONS: Left hip pain. Orthopedic service requests intra-articular steroid injection PROCEDURE: Risks and benefits and possible complications were discussed with the patient and the consent form was signed. The patient was placed supine on the fluoroscopy table. The left hip was prepped and draped in normal sterile fashion. 1% buffered lidocaine was used for anesthesia. A 22-gauge spinal needle was used to access the hip joint. Intra-articular position of the needle within the hip joint was verified using 3 cc of Omnipaque 300. A mixture containing 80 mg Depo-Medrol and 5 mL 1% lidocaine was then injected into the hip joint. The needle was then removed and a Band-Aid was applied to the injection site. The patient tolerated the procedure well. There were no immediate complications. There is moderate osteoarthrosis within the left hip joint. There are overhanging acetabular osteophytes. FL/FL arthrogram hip LT IMPRESSION: Fluoroscopic left hip steroid injection The procedure was performed by Dmitri Wyatt PA-C, and directly supervised by Dr. Mosquera.
== END 2023-02-01 12:56 | disposition home or self-care (01) ==
LOC: HO.XRAY 12:55
PROVIDERS: PCP Internal Medicine; Visit Provider Physician Assistant
DX: M16.0 Bilateral primary osteoarthritis of hip (principal)
CPT/HCPCS: 27093; 73525

== ENCOUNTER → 2023-02-01 12:58 | Outpatient (BNV) | payer OTHER, SELFPAY | PROVIDERS: PCP Internal Medicine; Visit Provider Radiology Diagnostic Radiology | DX: M16.12 Unilateral primary osteoarthritis, left hip (principal) | CPT/HCPCS: 27093; 73525 ==

== ENCOUNTER 2023-07-29 12:09 | Outpatient (AMB) | payer OTHER, SELFPAY ==
--- NOTE | 2023-07-29 12:28 | A.OFFVIS_ITS ---
Intake Visit Reasons: OV - left hip OA, last inj 02/01/23 Intake Note: Andressa is a 57 year old female who presents today for a follow up of her left hip OA, last arthrogram injection was 02/01/23. Patient reports her last injection gave her about 3 months of relief and she would like to repeat. Allergies erythromycin base Adverse Reaction (Mild, Verified 07/29/23 12:30) dizzy HPI HPI OV - left hip OA, last inj 02/01/23: Details: 57-year-old female who presents in the office today for a follow up of left hip osteoarthritis. I last saw the patient on 01/19/2023 when she was referred for a left hip arthrogram. The arthrogram was performed on 02/01/2023. While in the office today the patient reports her last injection gave her about 3 months of relief and she would like to repeat this. [facility] Medical History (Updated 01/19/23 @ 14:29 by Joyce Shelley) Mood disorder Social History Household Members: Family Do you presently have visiting nurse or other home services: No Patient Tobacco Use Status: Former Tobacco user service: No Current occupational status: employed Review of Systems Const All systems reviewed & are unremarkable except as noted in HPI and below Physical Exam Const General: cooperative and no acute distress Orientation/consciousness: patient oriented x3 Resp Effort & Inspection: normal respiratory effort and able to speak in complete sentences Cardio Peripheral pulses: Peripheral pulses 2+ throughout Skin General skin exam: no rashes or lesions noted Neuro General: patient oriented x3 Extrem Other: Left hip: Normal to inspection. No ecchymosis, erythema, or edema. Limited int ernal and external rotation. No tenderness to palpation over the greater trochanteric bursa. 5/5 strength with resisted hip flexion, knee extension, abduction, and abduction. Able to perform straight leg raise. NVI. Assessment & Plan Assessment & Plan (1) Osteoarthritis of left hip: Code(s): M16.12 - Unilateral primary osteoarthritis, left hip Category: Medical Qualifiers: Osteoarthritis type: unspecified Qualified Code(s): M16.12 - Unilateral primary osteoarthritis, left hip (2) Osteoarthritis of right hip: Code(s): M16.11 - Unilateral primary osteoarthritis, right hip Category: Medical Qualifiers: Osteoarthritis type: unspecified Qualified Code(s): M16.11 - Unilateral primary osteoarthritis, right hip Plan Ms. Arias is a 57-year-old female who presents in the office today for a follow up of left hip osteoarthritis. I last saw the patient on 01/19/2023 when she was referred for a left hip arthrogram. The arthrogram was performed on 02/01/2023. While in the office today the patient reports her last injection gave her about 3 months of relief and she would like to repeat this. Surgical intervention versus conservative treatment was discussed in the office today. At this time she would like to repeat the cortisone injection in the left hip. Patient will be referred for a left hip arthrogram to be done at the hospital under ultrasound guidance. We plan to discuss surgical intervention for possible later this at her next appointment. Follow up will be PRN, or sooner if needed. Orders: Orders FL arthrogram hip LT Today M16.12 - Unilateral primary osteoarthritis, left hip Patient Instructions: Scribed by Joyce Shelley chief medical director, for Chel Lozada PA-C on 07/29/2023 at 12:11 pm, EST. Coding Level of Care Code Est Pt Level 3 (20262) Diagnoses Osteoarthritis of left hip, unspecified osteoarthritis type M16.12 Osteoarthritis type: unspecified Osteoarthritis of right hip, unspecified osteoarthritis type M16.11 Osteoarthritis type: unspecified
== END 2023-07-29 14:32 | disposition home or self-care (01) ==
PROVIDERS: PCP Internal Medicine; Visit Provider Physician Assistant
DX: M16.0 Bilateral primary osteoarthritis of hip (principal)
CPT/HCPCS: 99213

== ENCOUNTER → 2023-07-29 12:09 | Outpatient (BNVA) | payer OTHER, SELFPAY | PROVIDERS: PCP Internal Medicine; Visit Provider Physician Assistant | DX: M16.0 Bilateral primary osteoarthritis of hip (principal) | CPT/HCPCS: 99212 ==

== ENCOUNTER 2023-08-19 13:04 | Outpatient (REF) | payer OTHER, SELFPAY ==
--- NOTE | ~2023-08-19 | FL_ITS ---
Left hip steroid injection Indications: Left hip pain. Orthopedic surgery requests an intra-articular steroid injection. Procedure: Risks and benefits and possible complications were discussed with the patient and the consent form was signed. The patient was placed hip on the fluoroscopy table. The left hip was prepped and draped in normal sterile fashion. 1% buffered lidocaine was used for anesthesia. A 22-gauge spinal needle was used to access the hip joint. Intra-articular position of the needle within the hip joint was verified using 3 cc of Omnipaque 300. A total of 5 mL of 1% lidocaine and 80 mg Depo-Medrol was then injected into the left hip joint. The needle was then removed and a Band-Aid was applied to the injection site. The patient tolerated the procedure well. There were no immediate complications. FL/FL arthrogram hip LT Impression: Successful fluoroscopic left hip intra-articular steroid injection The procedure was performed by Dmitri Wyatt PA-C, and directly supervised by Dr. Wilson.
== END 2023-08-19 13:05 | disposition home or self-care (01) ==
LOC: HO.XRAY 13:04
PROVIDERS: PCP Internal Medicine; Visit Provider Physician Assistant
DX: M16.12 Unilateral primary osteoarthritis, left hip (principal)
CPT/HCPCS: 27093; 73525

== ENCOUNTER → 2023-08-19 13:08 | Outpatient (BNV) | payer OTHER, SELFPAY | PROVIDERS: PCP Internal Medicine; Visit Provider Physician Assistant Surgical | DX: M16.12 Unilateral primary osteoarthritis, left hip (principal) | CPT/HCPCS: 20610; 77002 ==

== ENCOUNTER 2023-12-21 09:16 | Outpatient (AMB) | payer OTHER, SELFPAY ==
--- NOTE | 2023-12-21 09:28 | A.OFFVIS_ITS ---
Intake Visit Reasons: OV - left hip OA, last arthrogram 08/19/23 Intake Note: Andressa is a 57 year old female who presents today for a follow up of her left hip OA, last arthrogram injection was 08/19/23. Patient reports her last injection last her gave her about 2 months of relief. She mentions that she wants to discuss more about having a VIRAJ. Allergies erythromycin base Adverse Reaction (Mild, Verified 07/29/23 12:30) dizzy HPI HPI OV - left hip OA, last arthrogram 08/19/23: Details: 58-year-old female who presents in the office today for a follow-up of left hip osteoarthritis. I last saw the patient on 07/29/23 when the patient was referred for a repeat left hip arthrogram. We also discussed surgical intervention versus conservative treatment during that encounter. Her last arthrogram was performed on 08/19/23. While in the office today, the patient reports her last injection gave her about 2 weeks of complete relief and two months of partial relief that was managed with ibuprofen. She would like to discuss in detail about having a left total hip arthroplasty. [facility] Medical History (Updated 01/19/23 @ 14:29 by Joyce Shelley) Mood disorder Social History (Updated 12/21/23 @ 09:29 by Kendra Marinelli) Household Members: Family Do you presently have visiting nurse or other home services: No Alcohol intake: current Alcohol intake frequency: holidays/special occasions only Patient Tobacco Use Status: Former Tobacco user service: No Current occupational status: employed Review of Systems Const All systems reviewed & are unremarkable except as noted in HPI and below Physical Exam Const General: cooperative, healthy appearing and no acute distress Orientation/consciousness: patient oriented x3 Resp Effort & Inspection: normal respiratory effort and able to speak in complete sentences Cardio Rate: regular rate Peripheral pulses: Peripheral pulses 2+ throughout GI Palpation (GI): Soft to palpation Skin General skin exam: no rashes or lesions noted Lesions: no lesions Rashes: no rashes Neuro General: patient oriented x3 Extrem Other: Left hip: Normal to inspection. No ecchymosis, erythema, or edema. Limited internal and external rotation. No tenderness to palpation over the greater trochanteric bursa. 5/5 strength with resisted hip flexion, knee extension, abduction, and abduction. Able to perform straight leg raise. NVI. Assessment & Plan Assessment & Plan (1) Osteoarthritis of left hip: Code(s): M16.12 - Unilateral primary osteoarthritis, left hip Category: Medical Qualifiers: Osteoarthritis type: unspecified Qualified Code(s): M16.12 - Unilateral primary osteoarthritis, left hip Plan Ms. Arias is a 58-year-old female who presents in the office today for a follow-up of left hip osteoarthritis. I last saw the patient on 07/29/23 when the patient was referred for a repeat left hip arthrogram. We also discussed surgical intervention versus conservative treatment during that encounter. Her last arthrogram was performed on 08/19/23. While in the office today, the patient reports her last injection gave her about 2 weeks of complete relief and two months of partial relief that was managed with ibuprofen. She would like to discuss in detail about having a left total hip arthroplasty. Aretha, our nurse navigator, was available to meet the patient with me in the office today. We discussed proceeding with left hip arthroplasty. She was prescribed Meloxicam 15 mg PO once daily for 30 days. We discussed the procedure in detail as well as the recovery time. She reports that her hip pain is affecting her ADL's and quality of life and would like to move forward with total hip arthoplasty. Follow-up will be with Aretha with respect to preparing for surgical intervention, or sooner if needed. Medications: New meloxicam 15 mg PO DAILY 30 tabs 0RF 30 days Patient Instructions: Scribed by Madhavi Rosas medical affairs leader, for Chel Lozada PA-C on 12/21/23 at 9:42 am EST. Coding Level of Care Code Est Pt Level 4 (50300) Diagnoses Osteoarthritis of left hip, unspecified osteoarthritis type M16.12 Osteoarthritis type: unspecified
== END 2023-12-21 10:14 | disposition home or self-care (01) ==
PROVIDERS: PCP Internal Medicine; Visit Provider Physician Assistant
DX: M16.12 Unilateral primary osteoarthritis, left hip (principal)
CPT/HCPCS: 99214

== ENCOUNTER → 2023-12-21 09:16 | Outpatient (BNVA) | payer OTHER, SELFPAY | PROVIDERS: PCP Internal Medicine; Visit Provider Physician Assistant | DX: M16.12 Unilateral primary osteoarthritis, left hip (principal) | CPT/HCPCS: 99212 ==

== ENCOUNTER → 2024-03-13 08:44 | Outpatient (BNVA) | payer OTHER, SELFPAY | PROVIDERS: PCP Internal Medicine | DX: Z01.818 Encounter for other preprocedural examination (principal) ==

== ENCOUNTER 2024-04-06 08:41 | Outpatient (AMB) | payer OTHER, SELFPAY ==
--- NOTE | 2024-04-06 08:48 | MHC.OFFVIS ---
Vital Signs 04/06/24 08:55 Height 5 ft 3 in Weight 205 lb BMI 36.3 Handedness Right Intake Visit Reasons: PreOp - left total hip arthroplasty 04/12/24 NE Intake Note: Andressa is a 58 year old female who presents today for a pre op appointment for her left total hip arthroplasty 04/12/24 NE. Allergies azithromycin [From Zithromax Z-Isidoro] Allergy (Verified 04/06/24 08:49) Rash erythromycin base Adverse Reaction (Mild, Verified 04/06/24 08:49) dizzy HPI HPI PreOp - left total hip arthroplasty 04/12/24 NE: Details: Ms. Arias is a 58-year-old?female?who presents in the office today for her?preoperative history and physical exam prior for a left total hip arthroplasty?to be performed on?the 04-12-24?by?Dr. Nichols.?? Patient has an allergy history, as follows:??Azithromycin and erythromycin? Patient has a medical history, as follows:??Anxiety, depression, HTN, PCOS Patient has a surgical history, as follows:??Right wrist carpal tunnel release and cholecystectomy Patient has a social history, as follows:??None PFSH Medical History (Updated 03/10/24 @ 12:03 by Kassidy Cooney RN) Anxiety Habitual snoring Obesity PCOS (polycystic ovarian syndrome) HTN (hypertension) Osteoarthritis Depression Mood disorder Surgical History (Updated 04/06/24 @ 09:08 by Chel Lozada PA-C) History of carpal tunnel surgery of right wrist Hx of cholecystectomy Social History (Updated 04/06/24 @ 08:55 by Kendra Marinelli) Household Members: Family Are you a primary manager intensive care unit to a significant other at home: No Do you presently have visiting nurse or other home services: No Alcohol intake: current Alcohol intake frequency: a few times a week Patient Tobacco Use Status: Former Tobacco user e-Cigarette/Vaping Use: Currently Using service: No Current occupational status: employed 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 Review of Systems Const All systems reviewed & are unremarkable except as noted in HPI and below Physical Exam Vital Signs: BMI result Body Mass Index 36.3 Const General: cooperative, healthy appearing and no acute distress Orientation/consciousness: patient oriented x3 Resp Effort & Inspection: normal respiratory effort and able to speak in complete sentences Cardio Rate: regular rate Peripheral pulses: Peripheral pulses 2+ throughout GI Palpation (GI): Soft to palpation Skin General skin exam: no rashes or lesions noted Lesions: no lesions Rashes: no rashes Neuro General: patient oriented x3 Extrem Other: Left hip: Normal to inspection. No ecchymosis, erythema, or edema. Limited internal and external rotation. No tenderness to palpation over the greater trochanteric bursa. 5/5 strength with resisted hip flexion, knee extension, abduction, and abduction. Able to perform straight leg raise. NVI. Assessment & Plan Assessment & Plan (1) Osteoarthritis of left hip: Code(s): M16.12 - Unilateral primary osteoarthritis, left hip Category: Medical Qualifiers: Osteoarthritis type: unspecified Qualified Code(s): M16.12 - Unilateral primary osteoarthritis, left hip Plan Patient has tried and failed all conservative treatment and continues to have left hip pain that interferes with her daily activities and quality of life. Therefore she has consented to move forward with left total hip arthroplasty. I discussed in detail the procedure and what to expect pre and post operatively. We discussed the risks, benefits and alternatives to the surgery as well as the rehabilitation course. The risks; which include, but are not limited to infection, bleeding, nerve injury, ongoing pain, swelling, and stiffness, perioperative risk of injury to bones and soft tissues, and blood clots. I?ve answered all questions and with their understanding they have consented to move forward with left total hip arthroplasty with Dr. Nichols. Patient will be placed on aspirin postoperatively for DVT prophylaxis Orders: Orders PT Evaluation and Treatment Today Z96.649 - Presence of unspecified artificial hip joint XR hip LT min 2V Today M25.559 - Pain in unspecified hip Coding Level of Care Code Global (97004) Diagnoses Osteoarthritis of left hip, unspecified osteoarthritis type M16.12 Osteoarthritis type: unspecified
[2024-04-06 08:55] VITALS: BMI 36.3
--- OUTSIDE RECORDS SUMMARY | 2024-04-06 09:02 | XMS_ITS | Data Portability ---
Author Organization RACHEL [facility]ton [facility] Address [address] [place] [address] Assessment No assessment recorded. Plan of Treatment Reminders Order Date Submit Date Provider Last Modified By Organization Details Last Modified Time Details Appointments None recorded. Lab rapid flu (A+B) 2021 022 dberkson 1 [facility] [address] [place], [address], 12:09:32 Referral None recorded. Procedures None recorded. Surgeries None recorded. Imaging None recorded. Medication Orders fluticasone propionate 50 mcg/actuati on nasal spray,suspe nsion [address] [facility]armacy #[id number], [address] [place], [address], 12:09:37 doxycycline hyclate [address] [facility] #[id number], [address] [place], [address], 12:09:34 Patient TargetsNo targets recorded. Patient Instructions Encounter Date Encounter Id Patient Instructions Last Modified By Organization Details Last Modified Time 03/14/2022 [id number] Acute Sinusitis: Care Instructions [email or web address] Not available 03/14/2022 12:09:32 Reason for Referral None Reported. Results Created Date Observation Date Name Description Value Unit Range Abnormal Flag Note LastModifiedBy Organization Detail LastModifiedTime 03/14/20 22 03/14/2022 rapid flu (A+B) Unknown Analyte Normal = Negati ve Not Available tamera faulkner [address] [place], [address], 03/14/2022 11:32:39 03/14/20 22 03/14/2022 rapid flu (A+B) Unknown Analyte Normal = Negati ve Not Available 20[address] [place], [address], 03/14/2022 11:32:39 03/14/20 22 03/14/2022 rapid flu (A+B) Unknown Analyte negati ve Not Available [address] [place], [address], 03/14/2022 11:32:39 03/14/20 22 03/14/2022 rapid flu (A+B) Unknown Analyte negati ve Not Available [address]tam[address] faulkner [address] [place], [address], 03/14/2022 11:32:39 Result Notes None recorded. Problems Name Problem SNOMED Code Status Onset Date Resolution Date Notes Provider Name and Address Organization Details Recorded Time Depressive disorder 25009802 Active 022 RACHEL Hoyos - [facility] 11:31:40 Anxiety 14997323 Active 022 RACHEL Hoyos - [facility] 11:31:45 Problem Notes None recorded. Medical Equipment None Reported. Allergies No known drug allergies Medications Name Sig Start Date Stop Date Status Note LastModified by Organization Details LastModified Time doxycycline hyclate 100 mg capsule Take 1 capsule twice a day by oral route with meals for 7 days. 2021 active Not Available Not Available Not Avai lable citalopram 40 mg tablet TAKE 1 TABLET BY MOUTH EVERY DAY FOR 30 DAYS active Not Available Not Available No t Available citalopram 10 mg tablet TAKE 1 TABLET BY MOUTH EVERY DAY FOR 30 DAYS active Not Available Not Available No t Available citalopram 20 mg tablet TAKE 1 TABLET BY MOUTH EVERY DAY FOR 30 DAYS active Not Available Not Available No t Available fluticasone propionate 50 mcg/actuati on nasal spray,suspe nsion [place] 1 spray twice a day by intranasa l route as directed. 2021 active Not Available Not Available Not Avai lable amoxicillin 875 mg-tamra white clavulanate 125 mg tablet TAKE 1 TABLET (ORAL) 2 TIMES PER DAY FOR 10 DAYS FOR INFECTION --TAKE WITH FOOD 03/14 completed Not Available Not Available Not Available bupropion HCl XL 150 mg 24 hr tablet, extended release TAKE 1 TABLET BY MOUTH EVERY DAY IN THE MORNING FOR 30 DAYS active Not Available Not Available No t Available Vitals Date Recorded Body height Provider Name an d Address Organization Details Last Updated DateTime 03/14/2022 160.02 cm SHILO BURR PA - [facility] 1 05/15/2021 11:31:10 Date Recorded Body mass index (BMI) Body weight Provider Name and Address Organization Details Last Updated DateTime 03/14/2022 35.4 kg/m2 53481.47 g SHILO BURR PA - [facility] 03/14/2022 11:31:12 Date Recorded Respiratory rate Provider Name a nd Address Organization Details Last Updated DateTime 03/14/2022 18 /min SHILO BURR PA - [facility] 1 05/15/2021 11:33:16 Date Recorded Heart rate Provider Name an d Address Organization Details Last Updated DateTime 03/14/2022 68 /min SHILO BURR PA - [facility] 1 05/15/2021 11:34:47 Date Recorded Body temperature Provider Name a nd Address Organization Details Last Updated DateTime 03/14/2022 97.8 [degF] SHILO BURR PA - [facility] 03/14/2022 11:34:53 Date Recorded Oxygen saturation Oxygen saturation in Arterial blood by Pulse oximetry Provider Name and Address Organization Details Last Updated DateTime 03/14/2022 96 % 96 % SHILO BURR PA - [facility] 03/14/2022 11:39:25 Date Recorded Systolic blood pressure Diastolic blood pressure Provider Name and Address Organization Details Last Updated DateTime 03/14/2022 132 mm[Hg] 88 mm[Hg] SHILO BURR PA - [facility] 03/14/2022 11:34:45 Social History Question Answer Notes LastModified by Organizat ion Details LastModified Time Tobacco Smoking Status Current Every Day Smoker RACHEL Hyoos - [facility] 03/14/2022 11:32:31 What Is Your Level Of Alcohol Consumption? Occasional [email or web address] Information not available 03/14/2022 How Much Tobacco Do You Smoke? 0.25 PPD [email or web address] Information not available 03/14/2022 Do You Use Any Illicit Or Recreational Drugs? No [email or web address] Information not available 03/14/2022 Have You Recently Traveled Abroad? No [email or web address] Information not available 03/14/2022 Do You Or Have You Ever Used Any Other Forms Of Tobacco Or Nicotine? No [email or web address] Information not available 03/14/2022 Sex: Unknown Functional Status None recorded. Mental Status None recorded. Family History Relationship Description Onset Age of this Age Resolved Age Notes LastModified by Organization Details LastModified Time Father No current problems or disability [email or web address] Not available 03/14 11:31:49 Mother No current problems or disability Not available 03/14 11:31:49 Medical History No medical history recorded. Gynecological HistoryNo gynecological history recorded. Obstetrics History GPAL:G 0 P 0 0 0 0 Past Encounters Encounter ID Performer Location Encounter Start Date Encounter Closed Date Diagnosis/Indication Diagnosis SNOMED-CT Code Diagnosis ICD10 Code Diagnosis Note [id number] [address] [place] [address] 12/23/2014 13:19:51 12/23/2014 14:31:35 [id number] [address] [place] [address] 03/29/2020 13:57:48 03/29/2020 18:20:10 [id number] [address] [place] [address] 02/28/2020 14:36:10 02/28/2020 16:53:45 [id number] [address] [place] [address] 07/17/2021 12:32:50 07/17/2021 13:50:01 [id number] [address] [facility] SHRUTHI [place] [address] 01/07/2021 08:32:19 01/07/2021 09:52:09 [id number] [address] [facility] [place] [address] 02/25/2021 08:04:27 02/25/2021 09:43:03 [id number] [address] [facility] [place] [address] 06/24/2020 08:05:51 06/24/2020 08:44:00 [id number] DOROTA ISIDRO MD [address] [facility] [place] [address] 03/14/2022 08:27:00 03/14/2022 12:12:43 Cough 11425962 R05.9 Acute sinusitis 99075921 J01.90 If your symptoms worsen or persist you should be re-evaluat ed. Drink plenty of fluids Return to [facility] or see your primary care physician if your symptoms fail to improve in 1 week. You should follow up sooner if your symptoms worsen significan tly or if you develop new symptoms that concern you. If your symptoms are getting worse, or if you develop new symptoms that concern you, you should call 911 or go to the Emergency Department . Health Concerns Section Related Observation LastModified by Organization Detai ls LastModified Time None Recorded Concern Status LastModified by Organization Details LastModified Time None Recorded Advance Directives Directive None Recorded Payers Encounter Date Sequence Insurance Name Policy Number Policy Sahni Covered Member ID Sahni Member ID Guarantor Name 01/07/2021 1 [facility] NET PLAN (MEDICAID HMO) [id number] Andressa Arias [id number] Andressa Arias 02/25/2021 1 [facility] HEALTH [facility] PLAN (MEDICAID HMO) [id number] Andressa Arias [id number] Andressa Arias 07/17/2021 1 [facility] NET PLAN (MEDICAID HMO) [id number] Andressa Arias [id number] Andressa Arias 03/14/2022 1 [facility] PLAN (MEDICAID HMO) [id number] Andressa Arias [id number] Andressa Arias Notes Date Note Type Note Provider Name and Address Organization Details Recorded Time 03/14/2022 text/html CoughReported bypatient.Quality:h jeff;productive cough Severity:worsening Duration:constant; 4 days Timing:constant Modifying Factors:Cough Suppressant (not helpful); Lying down (worse) Associated Symptoms:no chills; no chest pain; no nausea; no vomiting; no wheezing;fever;post nasal drip 3d ago with congestion, prod harsh cough with coughing fits. R ear pain that went away. Fever last night DOROTA ISIDRO [facility] [address] [facility] [place], [address], [place] - [facility] 03/14/2022 12:11:27 OBGyn Episode No OBEpisode recorded.
== END 2024-04-06 09:14 | disposition home or self-care (01) ==
PROVIDERS: PCP Internal Medicine; Visit Provider Physician Assistant
DX: M16.12 Unilateral primary osteoarthritis, left hip (principal)
CPT/HCPCS: 99024

== ENCOUNTER 2024-04-06 08:53 | Outpatient (REF) | payer OTHER, SELFPAY ==
--- NOTE | ~2024-04-06 | XR_ITS ---
EXAMINATION: XR HIP 2 OR MORE VIEWS LEFT HISTORY: M25.559 - Pain in unspecified hip COMPARISON: Comparison is made with the prior examination dated 01/19/2023. FINDINGS: A single AP view of the pelvis and two views of the left hip are submitted. Osseous mineralization is normal. There is no fracture or dislocation. There is severe osteoarthritis with joint space narrowing and osteophyte formation. Findings have progressed since the prior study. The soft tissues are unremarkable. XR/XR hip LT min 2V IMPRESSION: Severe osteoarthritis as described with progression since the prior study. Electronically signed by: Hi Pinedo MD 04/07/2024 07:38 AM EST
--- OUTSIDE RECORDS SUMMARY | 2024-04-07 09:25 | XMS_ITS | Data Portability ---
Author Organization RACHEL layton [facility] Address [address] [place] [address] Assessment No assessment recorded. Plan of Treatment Reminders Order Date Submit Date Provider Last Modified By Organization Details Last Modified Time Details Appointments None recorded. Lab rapid flu (A+B) 2021 022 [facility]ks[facility] 1 [facility] [address] [place], [address], 12:09:32 Referral None recorded. Procedures None recorded. Surgeries None recorded. Imaging None recorded. Medication Orders fluticasone propionate 50 mcg/actuati on nasal spray,suspe nsion 2021 [facility]/Pharmacy #[id number], [address] [place], [address], 12:09:37 doxycycline hyclate 100 mg capsule 2021 [facility]armacy #[id number], [address] [place], [address], 12:09:34 Patient TargetsNo targets recorded. Patient Instructions Encounter Date Encounter Id Patient Instructions Last Modified By Organization Details Last Modified Time 03/14/2022 [id number] Acute Sinusitis: Care Instructions [email or web address] Not available 03/14/2022 12:09:32 Reason for Referral None Reported. Results Created Date Observation Date Name Description Value Unit Range Abnormal Flag Note LastModifiedBy Organization Detail LastModifiedTime 03/14/20 22 03/14/2022 rapid flu (A+B) Unknown Analyte Normal = Negati ve Not Available tamera faulkner [address] [place], [address], 03/14/2022 11:32:39 03/14/20 22 03/14/2022 rapid flu (A+B) Unknown Analyte Normal = Negati ve Not Available [address] [place], [address], 03/14/2022 11:32:39 03/14/20 22 03/14/2022 rapid flu (A+B) Unknown Analyte negati ve Not Available [address] [place], [address], 03/14/2022 11:32:39 03/14/20 22 03/14/2022 rapid flu (A+B) Unknown Analyte negati ve Not Available [address] [place], [address], 03/14/2022 11:32:39 Result Notes None recorded. Problems Name Problem SNOMED Code Status Onset Date Resolution Date Notes Provider Name and Address Organization Details Recorded Time Depressive disorder 02586120 Active 022 RACHEL Hoyos - [facility] 11:31:40 Anxiety 25667243 Active 022 RACHEL Hoyos - [facility] [...] propionate 50 mcg/actuati on nasal spray,suspe nsion [place] 1 spray twice a day by intranasa [...] Details Last Updated DateTime 03/14/2022 35.4 kg/m2 02394.47 g SHILO BURR PA - [facility] [...] DateTime 03/14/2022 96 % 96 % SHILO BRUR PA - [facility] 03/14/2022 11:39:25 Date Recorded Systolic blood pressure Diastolic blood pressure Provider Name and Address Organization Details Last Updated DateTime 03/14/2022 132 mm[Hg] 88 mm[Hg] SHILO BURR PA - [facility] 03/14/2022 11:34:45 Social History Question Answer Notes LastModified by Organizat ion Details LastModified Time Tobacco Smoking Status Current Every Day Smoker RACHEL Hoyos - [facility] 03/14/2022 11:32:31 What Is Your Level Of Alcohol Consumption? Occasional [email or web address] Information not available 03/14/2022 How Much Tobacco Do You Smoke? 0.25 PPD [email or web address] Information not available 03/14/2022 Do You Use Any Illicit Or Recreational Drugs? No Information not available 03/14/2022 Have You Recently Traveled Abroad? No [email or web address] Information not available 03/14/2022 Do You Or Have You Ever Used Any Other Forms Of Tobacco Or Nicotine? No Information not available 03/14/2022 Sex: Unknown Functional Status None recorded. Mental Status None recorded. Family History Relationship Description Onset Age of this Age Resolved Age Notes LastModified by Organization Details LastModified Time Father No current problems or disability [email or web address] Not available 03/14 11:31:49 Mother No current problems or disability [email or web address] Not available 03/14 11:31:49 Medical History No medical history recorded. Gynecological HistoryNo gynecological history recorded. Obstetrics History GPAL:G 0 P 0 0 0 0 Past Encounters Encounter ID Performer Location Encounter Start Date Encounter Closed Date Diagnosis/Indication Diagnosis SNOMED-CT Code Diagnosis ICD10 Code Diagnosis Note [id number] [address] [place] [address] 12/23/2014 13:19:51 12/23/2014 14:31:35 [id number] [address] [place] [address] 03/29/2020 13:57:48 03/29/2020 18:20:10 [id number] [address] [place] [address] 02/28/2020 14:36:10 02/28/2020 16:53:45 [id number] [address] [place] [address] 07/17/2021 12:32:50 07/17/2021 13:50:01 [id number] [address] [facility] SHRUTHI [place] [address] 01/07/2021 08:32:19 01/07/2021 09:52:09 [id number] [address] [facility] [place] [address] 02/25/2021 08:04:27 02/25/2021 09:43:03 [id number] [address] [facility] [place] [address] 06/24/2020 08:05:51 06/24/2020 08:44:00 [id number] DOROTA ISIDRO MD [address] [facility] [place] [address] 03/14/2022 08:27:00 03/14/2022 12:12:43 Cough 38124627 R05.9 Acute sinusitis 67513394 J01.90 If your symptoms worsen or persist [...] Sahni Member ID Guarantor Name 01/07/2021 1 [facility] HE[facility] NET PLAN (MEDICAID HMO) [id number] Andressa Arias [id number] Andressa Arias 02/25/2021 1 [facility]ALTH [facility] PLAN (MEDICAID HMO) [id number] Andressa Arias [id number] Andressa Arias 07/17/2021 1 [facility] HE[facility] NET PLAN (MEDICAID HMO) [id number] Andressa Arias [id number] Andressa Arias 03/14/[address] [facility] - HEALTH [facility] PLAN (MEDICAID HMO) [id number] Andressa Arias [id number] Andressa Arias Notes Date Note Type [...] Fever last night DOROTA ISIDRO MD [address] [facility] [address] [place], [address], [place] - [facility] 03/14/2022 12:11:27 OBGyn Episode No OBEpisode recorded.
== END 2024-04-06 08:54 | disposition home or self-care (01) ==
LOC: HO.HOSX 08:53
PROVIDERS: Visit Provider Physician Assistant
DX: M25.552 Pain in left hip (principal); Z96.649 Presence of unspecified artificial hip joint; M16.12 Unilateral primary osteoarthritis, left hip
CPT/HCPCS: 73502; 99212

== ENCOUNTER 2024-04-12 05:50 | Day surgery (SDC) | payer OTHER, SELFPAY ==
[2024-03-10 12:14] VITALS: BP 140/97; PULSE 80; RESP 18; O2SAT 96; BMI 37.2
--- NOTE | 2024-03-10 12:44 | P.CONAN_ITS ---
Documented by User: Brittney Lloyd NP 04/11/24 13:21 HPI - Anesthesia Eval Consult details Narrative: 58yo F for Left Hip Total Replacement, 04/12/23 Optimized per PCP No recent illness, nasal congestion with seasonal change No CP/SOB with workout 4 x weekly White coat syndrome PMFSH Active Problems Active Problems: All Active Problems Osteoarthritis of right hip (Acute) Osteoarthritis of left hip (Acute) Influenza A (Acute) Viral syndrome (Acute) Pneumonia (Acute) Acute respiratory failure with hypoxia (Acute) Hypoxia (Acute) Mood disorder (Acute) Past Medical History Medical History Anxiety Habitual snoring Obesity PCOS (polycystic ovarian syndrome) HTN (hypertension) Osteoarthritis Depression Mood disorder Family History Family history of problems with anesthesia: No Surgical History Surgical History History of carpal tunnel surgery of right wrist Hx of cholecystectomy History of Problems with Anesthesia: No Social History Social History Household Members: Family Are you a primary healthcare facility administrator to a significant other at home: No Do you presently have visiting nurse or other home services: No Alcohol intake: current Alcohol intake frequency: a few times a week Patient Tobacco Use Status: Former Tobacco user e-Cigarette/Vaping Use: Currently Using Use of substances other than those prescribed or required for medical reasons: Yes Substance Use Frequency: Daily Have you been hit, kicked, punched, or otherwise hurt by someone within the past year? 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 Allergies Allergy/AdvReac Type Severity Reaction Status Date / Time azithromycin Allergy Rash Verified 04/12/24 06:22 [From Zithromax Z-Isidoro] erythromycin base AdvReac Mild dizzy Verified 04/12/24 06:22 Home Medications ?Medication ?Instructions ?Recorded ?Confirmed ?Last Taken ?Type bupropion HCl 150 mg 24 hr tablet, 150 mg PO DAILY 06/16/22 03/13/24 04/07/24 History extended release citalopram 10 mg tablet 10 mg PO BEDTIME 06/16/22 03/13/24 04/07/24 History glucosamine sulfate 500 mg tablet 1,000 mg PO DAILY 03/10/24 03/13/24 04/07/24 History (Glucosamine) ibuprofen 200 mg tablet 400 mg PO Q6H PRN Pain 03/10/24 03/13/24 04/06/24 History loratadine 10 mg tablet 10 mg PO DAILY 03/10/24 03/13/24 04/07/24 History Exam Height,Weight and Vital Signs: Height 5 ft 3 in Weight 95.254 kg Last Vital Signs Pulse 80 03/10/24 12:14 Resp 18 03/10/24 12:14 BP 140/97 H 03/10/24 12:14 Pulse Ox 96 03/10/24 12:14 O2 Del Method Room Air 03/10/24 12:14 Pertinent Lab Results Pertinent Lab Results: CBC, BMP, INR from outside facility 01/2024 WNL Narrative Narrative: EKG 01/2024 NSR Old T wave inversion in lead III No change from preav Airway Mallampati Class: I TM Dist: >3cm Neck ROM: Full Loose/Missing/Broken Teeth: Yes (broken left lower molar, right lower crown missing) Heart: RRR Lungs: CTAB Assessment and Plan Assessment Anesthesia Assessment: Anesthesia Plan Discussed and PAT Visit Final Anesthetic Review Family History of Problems with Anesthesia: No History of Problems with Anesthesia: No Documented by User: Zonia Donnelly MD 04/12/24 07:49 PMFSH Past Medical History Medical History Anxiety Habitual snoring Obesity PCOS (polycystic ovarian syndrome) HTN (hypertension) Osteoarthritis Depression Mood disorder Surgical History Surgical History History of carpal tunnel surgery of right wrist Hx of cholecystectomy Social History Social History Household Members: Family Are you a primary healthcare facility administrator to a significant other at home: No Do you presently have visiting nurse or other home services: No Alcohol intake: current Alcohol intake frequency: a few times a week Patient Tobacco Use Status: Former Tobacco user e-Cigarette/Vaping Use: Currently Using Use of substances other than those prescribed or required for medical reasons: Yes Substance Use Frequency: Daily Have you been hit, kicked, punched, or otherwise hurt by someone within the past year? 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 Allergies Allergy/AdvReac Type Severity Reaction Status Date / Time azithromycin Allergy Rash Verified 04/12/24 06:22 [From Zithromax Z-Isidoro] erythromycin base AdvReac Mild dizzy Verified 04/12/24 06:22 Home Medications ?Medication ?Instructions ?Recorded ?Confirmed ?Last Taken ?Type bupropion HCl 150 mg 24 hr tablet, 150 mg PO DAILY 06/16/22 03/13/24 04/07/24 History extended release citalopram 10 mg tablet 10 mg PO BEDTIME 06/16/22 03/13/24 04/07/24 History glucosamine sulfate 500 mg tablet 1,000 mg PO DAILY 03/10/24 03/13/24 04/07/24 History (Glucosamine) ibuprofen 200 mg tablet 400 mg PO Q6H PRN Pain 03/10/24 03/13/24 04/06/24 History loratadine 10 mg tablet 10 mg PO DAILY 03/10/24 03/13/24 04/07/24 History Assessment and Plan Final Anesthetic Review NPO: Yes ASA Class: III Final Preanesthetic Review: No Changes in Pt Med Stat, Meds/Allgs Chart Reviewed, Consent Obtained/Reviewed and Anes Risks/Benef Reviewed Patient Risk: Intermediate Procedure Risk: Intermediate Anesthetic Plan Anesthetic Plan: GA
[2024-03-10 14:18] LABS: MRSA Nasal PCR NEGATIVE (Negative); SA Nasal PCR NEGATIVE (Negative)
[2024-04-12] VITALS (17 sets, daily range): BP systolic 104–147; BP diastolic 58–94; PULSE 51–84; RESP 12–20; TEMP 36.1–36.7; O2SAT 88–98
--- NOTE | ~2024-04-12 | XR_ITS ---
EXAMINATION: XR PELVIS CLINICAL INFORMATION: s/p LTHA COMPARISON: [ AP pelvis 04/06/2024 TECHNIQUE: AP view of the pelvis. FINDINGS: A total left hip prosthesis in satisfactory alignment. The prosthetic components in satisfactory alignment. Immediate postoperative changes with changes with surgical sutures are noted along the lateral hip . The right hip joint space and SI joints are normal. The soft tissue are normal. XR/XR pelvis 1-2V IMPRESSION: Total left hip prosthesis in satisfactory alignment. Electronically signed by: Lenard Sargent MD 04/12/2024 01:36 PM EST
[2024-04-12] MEDS: oxyCODONE HCl ER 10 MG TAB.ER.12H PO ×3 (06:42→20:52)
[2024-04-12] MEDS: Lactated Ringers 1,000 ML 100 ML IVCONT ×3 (06:56→18:20)
[2024-04-12 07:05] LABS: Hematocrit 41.9 % (37.0-47.0); Hemoglobin 13.5 g/dl (12.0-16.0)
--- NOTE | 2024-04-12 07:33 | MHC.SHP ---
Pre-Procedural Eval Section A - 24 Hr Update-Section A only Date of Service: 04/12/24 The patient is an INPATIENT: No Changes since office visit: No Cold of Flu in the past 2 weeks, No New Medical Problems, No Changes in Medication and No Patient answered all questions The patient has been examined within 24 hours of the surgical procedure. The History & Physical has been completed within 30 days and I have reviewed it.: Yes Section B - Complete if H&P > 30 days Chief Complaint: Unilateral primary osteoarthritis, left hip Allergies: Allergies Allergy/AdvReac Type Severity Reaction Status Date / Time azithromycin Allergy Rash Verified 04/12/24 06:22 [From Zithromax Z-Isidoro] erythromycin base AdvReac Mild dizzy Verified 04/12/24 06:22 Plan I have reviewed the history and physical and performed a pertinent physical examination on my patient. No changes have occurred unless specified. Time Spent With Patient Time: Total time managing care of this patient today ____ minutes.
--- NOTE | 2024-04-12 09:26 | P.BOP_ITS ---
Brief Operative Note Date of Service: 04/12/24 Pre-op diagnosis: Left hip OA Post-op diagnosis: same Procedure: Left VIRAJ Implants: [place] Trident2 48/ 10 deg liner [place] Accolade2 #3 132 +0/32 ceramic Surgeon: Yunior Nichols MD Anesthesia: GETA and local Was an Cloth Sander used for this Procedure?: Yes Cloth Sander: Chel Lozada Estimated blood loss (mL): 200 IV fluids (mL): 1,000 Pathology: other Condition: stable Disposition: PACU
--- NOTE | 2024-04-12 09:28 | P.OP_ITS ---
Operative Note Operative Note Date of Service: 04/12/24 Narrative: Date of Service: 04/12/24 Pre-op diagnosis: Left hip OA Post-op diagnosis: same Procedure: Left VIRAJ Implants: [place] Trident2 48/ 10 deg liner [place] Accolade2 #3 132 +0/32 ceramic Surgeon: Yunior Nichols MD Anesthesia: GETA and local Was an Sports Equipment Repairer used for this Procedure?: Yes Sports Equipment Repairer: Chel Lozada Estimated blood loss (mL): 200 IV fluids (mL): 1,000 Pathology: other Condition: stable Disposition: PACU Procedure in detail: Patient was brought into the operating room and placed in the right lateral decubitus position. All bony prominences were well padded and the limb was prepped and draped in standard sterile fashion. A time-out was called to identify proper site procedure proper surgeon IV antibiotics and 1 g of tranexamic acid were administered. I began by making a curvilinear incision o kevin the posterolateral aspect of the greater trochanter. Dissection was taken down to the tensor fascia which was incised in line with the incision and a Charnley retractor was placed. Cautery was used to maintain hemostasis. The hip was internally rotated and the external rotators were identified. The vessels were controlled with a Werewolf hemostasis wand and a full-thickness capsular/external rotator layer was developed starting just proximal to the piriformis. This layer was tagged and a dull Hohmann retractor was placed underneath the neck in the hip was dislocated. A neck cut was made 1 cm proximal to the lesser trochanter and the head and neck were removed and measured 43-44mm on the back table. The head was deformed and eburnated. I then removed the labrum and cauterized the fovea. I started with a 40 reamer and medialized to the inner table. I sequentially reamed up to a size 48 and impacted a 48 mm cup at 45 degrees of inclination and 25 degrees of version. I then placed a 10 deg posterior lipped liner and turned my attention to the femur. I identified the piriformis insertion and used this as a starting point for my shanice cutter. The medius tendon was protected with a Hibs retractor. A Charnley awl was inserted in the canal and a curved curette used to remove the lateral bone. I irrigated copiously. I then sequentially broached in the patient's natural version to a size 3 and placed my trial implants. I used a #3/132/+0 based on my pre-operative template. I removed all instrumentation and copiously irrigated. I placed my final femoral implant and again took the hip through range of motion and was satisfied with the stability and length. The final +0 implant was impacted in place and the hip reduced. I then irrigated copiously and placed 1 g of local tranexamic acid. I performed a capsular closure with 2.0 fiberwire, Avelina's fascia with 0 Vicryl, subcuticular with 2-0 Vicryl and the skin with mercedes. Patient was placed into a sterile dressing. Patient was extubated brought to the recovery room in stable condition. There were no known complications.
[2024-04-12] MEDS: HYDROmorphone HCl 0.5 MG/0.5 ML SYRINGE 0.25 MG IVPUSH ×2 (09:52→09:57)
[2024-04-12] MEDS: oxyCODONE HCl Immed Release 5 MG TABLET PO ×2 (11:03→18:17)
[2024-04-12] MEDS: Acetaminophen 325 MG TABLET 650 MG PO ×2 (11:04→18:16)
[2024-04-12] MEDS: Docusate Sodium 100 MG CAPSULE PO ×2 (11:04→20:52)
[2024-04-12] MEDS: Celecoxib 200 MG CAPSULE PO ×2 (11:07→20:52)
--- NOTE | 2024-04-12 11:13 | PHA.MEDREC ---
Pharmacy Consult ? Medication Reconciliation Pharmacy has completed the medication reconciliation. Checked med rec done by nursing
[2024-04-12] MEDS: Loratadine 10 MG TABLET PO (11:43)
[2024-04-12] MEDS: buPROPion HCl XL 150 MG TAB.ER.24H PO (11:43)
[2024-04-12] MEDS: ceFAZolin Sodium/Dextrose,Iso 2 GM/50 ML PIGGYBACK IV (14:08)
--- NOTE | 2024-04-12 16:07 | HO.PM.IMCN ---
History of Present Illness Data of Consult Service Date: 04/12/24 Primary Care Provider: Arnav Ramírez DO, MD HPI 58-year-old woman with a history of osteoarthritis, anxiety admitted by Orthopedic surgery for left total hip arthroplasty. Surgery was unremarkable. Patient has been able to eat and drink without any nausea and vomiting. Patient has minimal mild pain at this time. Review of Systems Review of Systems: Denies any recent fever chills or decrease in appetite respiratory denies any shortness of breath or cough cardiovascular denies chest pain gastrointestinal denies any dysphagia abdominal pain nausea vomiting or diarrhea genitourinary denies any dysuria frequency or hematuria musculoskeletal total hip arthroplasty neuropsych denies any weakness or seizures all other systems reviewed are negative [facility] Medical History Anxiety Habitual snoring Obesity PCOS (polycystic ovarian syndrome) HTN (hypertension) Osteoarthritis Depression Mood disorder Surgical History History of carpal tunnel surgery of right wrist Hx of cholecystectomy Social History Household Members: Family Are you a primary career services manager to a significant other at home: No Do you presently have visiting nurse or other home services: No Alcohol intake: current Alcohol intake frequency: a few times a week Patient Tobacco Use Status: Former Tobacco user e-Cigarette/Vaping Use: Currently Using service: No Current occupational status: employed 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 Allergies Allergy/AdvReac Type Severity Reaction Status Date / Time azithromycin Allergy Rash Verified 04/12/24 06:22 [From Zithromax Z-Isidoro] erythromycin base AdvReac Mild dizzy Verified 04/12/24 06:22 Active Medications: Current Medications Acetaminophen (Acetaminophen 325 Mg Tablet) 650 mg PO Q6H PRN PRN Reason: Pain, Mild 1-3,fever,headache Last Admin: 04/12/24 11:04 Dose: 650 mg Aspirin (Aspirin 325 Mg Tablet) 325 mg PO BID [facility] Bupropion HCl (Bupropion Hcl Xl 150 Mg Tab.Er.24h) 150 mg PO DAILY [facility] Last Admin: 04/12/24 11:43 Dose: 150 mg Celecoxib (Celecoxib 200 Mg Capsule) 200 mg PO BID [facility] Last Admin: 04/12/24 11:07 Dose: 200 mg Docusate Sodium (Docusate Sodium 100 Mg Capsule) 100 mg PO BID [facility] Last Admin: 04/12/24 11:04 Dose: 100 mg Escitalopram Oxalate (Escitalopram Oxalate 5 Mg Tablet) 5 mg PO BEDTIME [facility] Hydromorphone HCl (Hydromorphone Hcl 0.5 Mg/0.5 Ml Syringe) 0.25 mg IVPUSH Q4H PRN; Protocol PRN Reason: Pain, Severe (Pain Scale 7-10) Lactated Ringer's (Lr) 1,000 mls @ 100 mls/hr IVCONT .Q10H [facility] Last Admin: 04/12/24 11:00 Dose: 100 mls/hr Loratadine (Loratadine 10 Mg Tablet) 10 mg PO DAILY [facility] Last Admin: 04/12/24 11:43 Dose: 10 mg Magnesium Hydroxide (Milk Of Magnesia 30 Ml Oral.Susp) 30 ml PO DAILY PRN PRN Reason: Constipation Ondansetron HCl (Ondansetron Hcl 4 Mg/2 Ml Vial) 4 mg IVPUSH Q8H PRN PRN Reason: Nausea and Vomiting Oxycodone HCl (Oxycodone Hcl Immed Release 5 Mg Tablet) 5 mg PO Q4H PRN PRN Reason: Pain, Moderate(Pain Scale 4-6) Last Admin: 04/12/24 11:03 Dose: 5 mg Oxycodone HCl (Oxycodone Hcl Er 10 Mg Tab.Er.12h) 10 mg PO BID [facility] Last Admin: 04/12/24 11:03 Dose: 10 mg Sodium Chloride (0.9 % Sodium Chloride Flush 3 Ml Syringe) 3 ml IVFLUSH QSHIFT [facility] Last Admin: 04/12/24 14:40 Dose: Not Given Home Medications ?Medication ?Instructions ?Recorded ?Confirmed ?Last Taken ?Type bupropion HCl 150 mg 24 hr tablet, 150 mg PO DAILY 06/16/22 03/13/24 04/07/24 History extended release glucosamine sulfate 500 mg tablet 1,000 mg PO DAILY 03/10/24 03/13/24 04/07/24 History (Glucosamine) loratadine 10 mg tablet 10 mg PO DAILY 03/10/24 03/13/24 04/07/24 History citalopram 20 mg tablet 20 mg PO DAILY 04/12/24 04/12/24 Unknown History Physical Exam Vital Signs and Narrative: Vital Signs: Last Vital Signs Temp 97.3 F 04/12/24 15:21 Pulse 55 04/12/24 15:21 Resp 20 04/12/24 15:21 BP 141/80 H 04/12/24 15:21 Pulse Ox 97 04/12/24 15:21 O2 Del Method Nasal Cannula 04/12/24 15:21 O2 Flow Rate 2 04/12/24 15:21 FiO2 45 04/12/24 10:27 BMI result Body Mass Index 37.2 Appearing in no acute distress head is normocephalic atraumatic eyes pupils are PERRLA sclera is anicteric mouth throat mucous membranes are intact and moist neck is supple no lymphadenopathy, no JVD noted lung sounds are clear to auscultation heart regular rate rhythm, clear S1, S2 positive bowel sounds, abdomen is soft, nontender neuro patient is alert x3, no focal deficits Left hip surgical dressing intact, surgical incision not visualized Results Labs 04/14/24 05:28 04/14/24 05:28 Imaging Radiologist's Impressions: Impressions Pelvis X-Ray 04/12/24 10:45 IMPRESSION: Total left hip prosthesis in satisfactory alignment. Electronically signed by: Lenard Sargent MD 04/12/2024 01:36 PM [facility] Assessment and Plan (1) Osteoarthritis of left hip: Qualifiers: Osteoarthritis type: unspecified Qualified Code(s): M16.12 - Unilateral primary osteoarthritis, left hip Status: Inactive Plan 58-year-old woman admitted by Orthopedic surgery and is status post left total hip arthroplasty Left total hip arthroplasty Management as per surgical team Pain management Mental health Continue home medications DVT prophylaxis with full-dose aspirin Medical consultation complete. Will sign off
[2024-04-12] MEDS: ondansetron HCL 4 MG/2 ML VIAL IVPUSH (18:14)
[2024-04-12] MEDS: Escitalopram Oxalate 5 MG TABLET PO (20:52)
[2024-04-13] VITALS (7 sets, daily range): BP systolic 106–140; BP diastolic 62–87; PULSE 52–68; RESP 16–20; TEMP 36.3–37; O2SAT 93–96
[2024-04-13] MEDS: Lactated Ringers 1,000 ML 100 ML IVCONT (03:53)
[2024-04-13 07:53] LABS: MANUAL DIFF FLAG NO
[2024-04-13 07:58] LABS: Basophils Percent Auto 0.2 % (0-2); Eosinophils Absolute Auto 0.1 X10*3/uL (0.0-0.4); Eosinophils Percent Auto 0.6 % (0-4); Hematocrit 34.9 % (37.0-47.0); Hemoglobin 11.7 g/dl (12.0-16.0); Imm Gran Abs Auto 0.05 X10*3/uL (0.00-0.03); Imm Gran Pct Auto 0.5 % (0.0-0.4); Lymphocytes Absolute Auto 1.8 X10*3/uL (1.2-4.9); Lymphocytes Percent Auto 16.3 % (20-40); Mean Corpuscular HGB Conc 33.5 g/dl (31.0-35.0); Mean Corpuscular Hemoglobin 30.5 pg (27.0-33.0); Mean Corpuscular Volume 91.1 fL (80.0-98.0); Mean Platelet Volume 10.5 fL (9.4-12.3); Monocytes Absolute Auto 0.9 X10*3/uL (0.1-1.2); Monocytes Percent Auto 7.9 % (2-11); Neutrophils Absolute Auto 8.1 x10*3/uL (2.0-8.3); Neutrophils Percent Auto 74.5 % (45-73); Platelet Count 234 X10*3/uL (160-400); Red Blood Count 3.83 X10*6/uL (4.20-5.50); Red Cell Distribution Width 12.9 % (11.0-16.0); White Blood Count 10.8 X10*3/uL (4.8-10.8)
[2024-04-13 08:11] LABS: Anion Gap 9 (12-20); Blood Urea Nitrogen 8 mg/dL (9-16); Calcium 8.5 mg/dL (8.4-10.2); Carbon Dioxide 26 mmol/L (22-29); Chloride 108 mmol/L (96-108); Creatinine Clr Calc Pharmacy 104.5; Estimated Glomerular Filt Rate > 60; Glucose Fasting 108 mg/dL (60-99); Potassium 3.9 mmol/L (3.3-5.1); Sodium 139 mmol/L (135-145)
--- NOTE | 2024-04-13 08:46 | P.DS_ITS ---
DS: Providers Provider Date of Service: 04/13/24 Date of discharge: 04/13/24 Primary care physician: Arnav Ramírez DO, MD Consults: 04/12/24 07:43 Consult to Hospitalist Routine Comment: Consulting Provider: [facility] [place] Hospitalists Reason For Exam: routine medical management DS: Diagnosis Discharge Diagnosis (1) Osteoarthritis of left hip: Status: Acute DS: Summary Hospital Course Hospital Course: The patient underwent a successful left total hip arthroplasty, they were transferred to PACU and then to the floor to recover. During their stay, their vitals were stable, afebrile at 97.3. Labs were unremarkable, H/H 11.7/34.9. POD 1 they were started on Aspirin 325mg po bid for DVT ppx, they also received Physical Therapy services twice a day. Prior to discharge, their dressing was changed, incision clean dry and intact, new Aquacel dressing applied and the plan was to be discharged home with VNA services. Time Attestation Discharge Coordination Time (in mins): 30 Quality: Safe Use of Opioids Does Pt have an Active Cancer Diagnosis on the Problem List?: No Quality: Stroke Does the patient have a stroke diagnosis?: No Physical Exam Vital Signs: Vital Signs: Last Vital Signs Temp 97.3 F 04/13/24 07:19 Pulse 52 04/13/24 07:19 Resp 16 04/13/24 07:19 BP 107/62 04/13/24 07:19 Pulse Ox 94 04/13/24 07:19 O2 Del Method Room Air 04/13/24 07:19 O2 Flow Rate 1 04/12/24 16:48 FiO2 45 04/12/24 10:27 BMI result Body Mass Index 37.2 Const: General: cooperative, healthy appearing and no acute distress Resp: Effort & Inspection: normal respiratory effort and able to speak in complete sentences Cardio: Rate: regular rate Peripheral pulses: Peripheral pulses 2+ throu ghout GI: Palpation (GI): Soft to palpation Skin: Lesions: no lesions Rashes: no rashes Extrem: Other: left hip dressing is c/d/i. Able to dorsi/plantar flex. Calf is supple and nontender. Sensation intact. Pedal pulse intact. DS: Data Data Completed and Pending Pending studies at discharge: Pending at discharge 04/12/24 08:22 Surgical [PTH] Routine Labs on day of discharge: Laboratory Results - last 24 hr 04/13/24 07:06 WBC 10.8 RBC 3.83 L Hgb 11.7 L Hct 34.9 L MCV 91.1 MCH 30.5 MCHC 33.5 RDW 12.9 Plt Count 234 MPV 10.5 Immature Gran % (Auto) 0.5 H Neut % (Auto) 74.5 H Lymph % (Auto) 16.3 L [place] % (Auto) 7.9 Eos % (Auto) 0.6 Baso % (Auto) 0.2 Lymph # (Auto) 1.8 [place] # (Auto) 0.9 Eos # (Auto) 0.1 Baso # (Auto) 0.0 Abs Immat Gran (auto) 0.05 H Absolute Neuts (auto) 8.1 Absolute Nucleated RBC 0.000 Nucleated RBC % (auto) 0.0 Sodium 139 Potassium 3.9 Chloride 108 Carbon Dioxide 26 Anion Gap 9 L BUN 8 L Creatinine 0.66 Estim Creat Clear Calc 104.5 Estimated GFR > 60 Fasting Glucose 108 H Calcium 8.5 D Discharge Plan Discharge Patient Disposition: Home Health Service Referrals: Chel Lozada PA-C [Physician Health Service Worker] - 04/26/24 11:00 am Discharge Medications: New celecoxib 200 mg Capsule 200 mg PO BID 30 Days Qty: 60 0RF acetaminophen 325 mg Tablet 650 mg PO Q6H PRN (Reason: Pain, Mild 1-3,Fever,Headache) 30 Days Qty: 240 0RF aspirin 325 mg Tablet 325 mg PO BID 30 Days Qty: 60 0RF docusate sodium 100 mg Capsule 100 mg PO BID 30 Days Qty: 60 0RF oxycodone 5 mg Tablet 5 mg PO Q4H PRN (Reason: Pain, Moderate(Pain Scale 4-6)) 7 Days Qty: 42 0RF Rx Instructions: Partial Fill upon patient request. Continued (ANA) elmer Prieto See Rx Instructions .ROUTE .MEDSUPPLY Qty: 1 0RF Rx Instructions: Folding front wheeled walker bupropion HCl 150 mg tablet extended release 24 hr 150 mg PO DAILY loratadine 10 mg tablet 10 mg PO DAILY glucosamine sulfate [Glucosamine] 500 mg Tablet 1,000 mg PO DAILY Rx Instructions: administer with a meal citalopram 20 mg tablet 20 mg PO DAILY Discontinued meloxicam 15 mg tablet 15 mg PO DAILY Qty: 30 0RF ibuprofen 200 mg Tablet 400 mg PO Q6H PRN (Reason: Pain) Discharge Orders: Discharge Order (Routine); Ordered 04/13/24 Ordered By: Chel Lozada Diet: Advance to usual diet Activity on Discharge: Use cane or walker Activity Restrictions/Additional Instructions: Physical Therapy for total hip arthroplasty: posterior precautions, gait training, ROM, strength Limit stair climbing No showering, no tub bath-keep dressing clean, dry and intact No driving x6 weeks Continue asa tabs once a day x 6 weeks Follow up with [facility] Orthopedics in 2 weeks Print Language: Palauan
--- NOTE | 2024-04-13 08:49 | P.F2F_ITS ---
Service Date Service Date: 04/13/24 Encounter Date of encounter: 04/13/24 Reasons for Services Signs and symptoms assessed: Pt. is considered homebound due to recent surgery. Unable to drive, poor balance, poor gait mechanics. Reason for physical therapy: home safety and mobility, therapeutic exercises, restore joint function, gait/transfer training and ADL training Reason for occupational therapy: home safety and mobility, therapeutic exercises, restore joint function, gait/transfer training and ADL training Homebound: Leaving the home is medically contraindicated at this time without the asist of a device and/or another person due th the listed conditions above and below. Reason homebound: unsteady gait / fall risk, leg weakness, pain with ambulation, poor balance / fall risk and unable to drive Certification: Based on the above findings, I certify that this patient is confined to the home and needs intermittent nursing home care, physical therapy and/or speech therapy, or continues to need occupational therapy. The patient is under my care, and I have initiated the establishment of the plan of care. The patient will be followed by a physician who will periodically review the plan of care. Time Spent With Patient Time: Total time managing care of this patient today ____ minutes.
[2024-04-13] MEDS: Celecoxib 200 MG CAPSULE PO ×2 (08:52→20:45)
[2024-04-13] MEDS: Loratadine 10 MG TABLET PO (08:52)
[2024-04-13] MEDS: oxyCODONE HCl ER 10 MG TAB.ER.12H PO ×2 (08:52→20:38)
[2024-04-13] MEDS: buPROPion HCl XL 150 MG TAB.ER.24H PO (08:52)
[2024-04-13] MEDS: Docusate Sodium 100 MG CAPSULE PO ×2 (08:52→20:38)
--- NOTE | 2024-04-13 09:40 | MHC.CM.PN ---
Addendum entered by Jennifer Parra 04/14/24 08:27: PT IS AWARE AUTH IS STILL PENDING, HOWEVER SHE STATES SHE WOULD LIKE TO GO HOME IF HER FUNCTIONING HAS IMPROVED FINAL DCP PENDING F/U WITH PT, HOME WITH [facility] VS STR Addendum entered by Jennifer Parra 04/13/24 12:38: [facility] IS OFFERING A STR BED PENDING AUTH Addendum entered by Jennifer Parra 04/13/24 12:15: PT AND OT RECOMMENDING ACUTE REHAB. REFERRALS MADE, HOWEVER PT DOES NOT QUALIFY FOR THIS LOC STR REFERRALS MADE Original Note: PT REPORTS SHE LIVES ALONE UPSTAIRS FROM HER ELDERLY PARENTS SHE IS INDEPENDENT AT BASELINE AND USES NO DME SHE SAYS SHE HAS SIGNED A HCP IN THE PAST AND IS HAS NOT CHANGED, HER MOTHER IS THE AGENT, COPY REQUESTED PCP: BELLA MENDOZA DCP: HOME TODAY WITH [facility] SERVICES MOTHER TO TRANSPORT
[2024-04-13] MEDS: Aspirin 325 MG TABLET PO ×2 (10:54→20:38)
--- NOTE | 2024-04-13 11:02 | HO.POSTANES ---
Post Anesthesia Evaluation Post Anesthesia Evaluation Date of Service: 04/13/24 Vital Signs: Vital Signs Temp Pulse Resp BP Pulse Ox O2 Del Method 04/13/24 10:09 52 107/62 94 04/13/24 07:19 97.3 F 52 16 107/62 94 Room Air 04/13/24 03:24 97.9 F 58 18 106/64 96 Room Air 04/12/24 23:22 98.1 F 62 18 104/61 95 Room Air Anesthesia: General Mental Status: Awake Pain Control: Satisfactory Nausea/Vomiting: None Hydration: Adequate Anesthesia-Related Issues: No Anes. Related Issues
--- NOTE | 2024-04-13 11:41 | PM.PNORT ---
Subjective Subjective Date of Service: 04/13/24 Interval history: POD1 s/p LTHA Patient is resting in bed Reports dizziness No overnight events Pain is managed No additional complaints Physical Exam Vital Signs: Vital Signs: Last Vital Signs Temp 97.3 F 04/13/24 07:19 Pulse 52 04/13/24 10:09 Resp 16 04/13/24 07:19 BP 107/62 04/13/24 10:09 Pulse Ox 94 04/13/24 10:09 O2 Del Method Room Air 04/13/24 07:19 O2 Flow Rate 1 04/12/24 16:48 FiO2 45 04/12/24 10:27 BMI result Body Mass Index 37.2 Const: General: cooperative, healthy appearing and no acute distress Resp: Effort & Inspection: normal respiratory effort and able to speak in complete sentences Cardio: Rate: regular rate Peripheral pulses: Peripheral pulses 2+ throughout GI: Palpation (GI): Soft to palpation Skin: Lesions: no lesions Rashes: no rashes Extrem: Other: left hip dressing is c/d/i. Able to dorsi/plantar flex. Calf is supple and nontender. Sensation intact. Pedal pulse intact. Procedures Date of Service Date of Service: 04/13/24 Progress Note: A&P Assessment and plan (1) S/P total hip arthroplasty: Status: Acute Plan Continue pain mgmnt Begin ASA for dvt ppx begin PT/OT for LTHA Dispo planning- PT, pain mgmnt, patient presenting with dizziness and therefore physical therapy recommending short-term rehab due to increased risk of fall. Time Spent With Patient Time: Total time managing care of this patient today ____ minutes. Quality Stroke Does the patient have a stroke diagnosis?: No VTE Prior VTE?: No VTE Risk Level:: Medical - moderate - high VTE Device Contraindication: N/A - Device Ordered VTE Drug Contraindication: N/A - Med Ordered
--- NOTE | 2024-04-13 16:53 | PC.NURSE ---
Pt not D/C Today, Auth Still pending, possible d/c 04/14/24
[2024-04-13] MEDS: Escitalopram Oxalate 5 MG TABLET PO (20:38)
[2024-04-13] MEDS: 0.9 % Sodium Chloride Flush 3 ML SYRINGE IVFLUSH (20:39)
[2024-04-14 03:24] VITALS: BP 121/73; PULSE 53; RESP 18; TEMP 36.8; O2SAT 95
[2024-04-14 07:05] LABS: MANUAL DIFF FLAG NO
[2024-04-14 07:21] LABS: Basophils Percent Auto 0.3 % (0-2); Eosinophils Absolute Auto 0.2 X10*3/uL (0.0-0.4); Hemoglobin 11.7 g/dl (12.0-16.0); Imm Gran Abs Auto 0.03 X10*3/uL (0.00-0.03); Imm Gran Pct Auto 0.3 % (0.0-0.4); Lymphocytes Absolute Auto 1.6 X10*3/uL (1.2-4.9); Lymphocytes Percent Auto 18.8 % (20-40); Mean Corpuscular HGB Conc 32.5 g/dl (31.0-35.0); Mean Corpuscular Volume 92.3 fL (80.0-98.0); Mean Platelet Volume 10.7 fL (9.4-12.3); Monocytes Absolute Auto 0.9 X10*3/uL (0.1-1.2); Neutrophils Absolute Auto 5.9 x10*3/uL (2.0-8.3); Neutrophils Percent Auto 68.6 % (45-73); Platelet Count 233 X10*3/uL (160-400); Red Cell Distribution Width 13.2 % (11.0-16.0); White Blood Count 8.6 X10*3/uL (4.8-10.8)
[2024-04-14 07:46] VITALS: BP 115/85; PULSE 61; RESP 18; TEMP 36.6; O2SAT 95
[2024-04-14 07:47] LABS: Anion Gap 10 (12-20); Blood Urea Nitrogen 9 mg/dL (9-16); Calcium 8.4 mg/dL (8.4-10.2); Carbon Dioxide 26 mmol/L (22-29); Chloride 107 mmol/L (96-108); Creatinine Clr Calc Pharmacy 111.2; Estimated Glomerular Filt Rate > 60; Glucose Fasting 88 mg/dL (60-99); Potassium 4.1 mmol/L (3.3-5.1); Sodium 139 mmol/L (135-145)
--- NOTE | 2024-04-14 08:22 | PM.PNORT ---
Subjective Subjective Date of Service: 04/14/24 Interval history: POD3 s/p LTHA Patient is resting in bed Reports dizziness No overnight events Pain is managed No additional complaints Physical Exam Vital Signs: Vital Signs: Last Vital Signs Temp 97.9 F 04/14/24 07:46 Pulse 61 04/14/24 07:46 Resp 18 04/14/24 07:46 BP 115/85 04/14/24 07:46 Pulse Ox 95 04/14/24 07:46 O2 Del Method Room Air 04/14/24 07:46 O2 Flow Rate 1 04/12/24 16:48 FiO2 45 04/12/24 10:27 BMI result Body Mass Index 37.2 Const: General: cooperative, healthy appearing and no acute distress Resp: Effort & Inspection: normal respiratory effort and able to speak in complete sentences Cardio: Rate: regular rate Peripheral pulses: Peripheral pulses 2+ throughout GI: Palpation (GI): Soft to palpation Skin: Lesions: no lesions Rashes: no rashes Extrem: Other: left hip dressing is c/d/i. Able to dorsi/plantar flex. Calf is supple and nontender. Sensation intact. Pedal pulse intact. Procedures Date of Service Date of Service: 04/14/24 Progress Note: A&P Assessment and plan (1) S/P total hip arthroplasty: Status: Acute Plan Continue pain mgmnt Continue ASA for dvt ppx Continue PT/OT for LTHA Dispo planning- PT, pain mgmnt, stair clearance Time Spent With Patient Time: Total time managing care of this patient today ____ minutes. Quality Stroke Does the patient have a stroke diagnosis?: No VTE Prior VTE?: No VTE Risk Level:: Medical - moderate - high VTE Device Contraindication: N/A - Device Ordered VTE Drug Contraindication: N/A - Med Ordered
[2024-04-14] MEDS: Celecoxib 200 MG CAPSULE PO (09:01)
[2024-04-14] MEDS: Aspirin 325 MG TABLET PO (09:01)
[2024-04-14] MEDS: buPROPion HCl XL 150 MG TAB.ER.24H PO (09:01)
[2024-04-14] MEDS: Docusate Sodium 100 MG CAPSULE PO (09:01)
[2024-04-14] MEDS: Loratadine 10 MG TABLET PO (09:02)
[2024-04-14] MEDS: oxyCODONE HCl ER 10 MG TAB.ER.12H PO (09:02)
[2024-04-14 10:36] VITALS: BP 115/85; PULSE 61; O2SAT 95
--- NOTE | 2024-04-14 13:01 | MHC.CM.PN ---
pt leaving at 3 to [facility]
--- NOTE | 2024-04-14 13:01 | PM.DS ---
DS: Providers Provider Date of Service: 04/14/24 Date of discharge: 04/14/24 Primary care physician: Arnav Ramírez DO, MD Consults: 04/12/24 07:43 Consult to Hospitalist Routine Comment: Consulting Provider: [facility] Hospitalists Reason For Exam: routine medical management DS: Diagnosis Discharge Diagnosis (1) S/P total hip arthroplasty: Status: Acute DS: Summary Hospital Course Hospital Course: The patient underwent a successful left total hip arthroplasty, they were transferred to PACU and then to the floor to recover. During their stay, their vitals were stable, afebrile at 97.3. Labs were unremarkable, H/H 11.7/34.9. POD 1 they were started on Aspirin 325mg po bid for DVT ppx, they also received Physical Therapy services twice a day. Prior to discharge, their dressing was changed, incision clean dry and intact, new Aquacel dressing applied and the plan was to be discharged home with VNA services. Time Attestation Discharge Coordination Time (in mins): 30 Quality: Safe Use of Opioids Does Pt have an Active Cancer Diagnosis on the Problem List?: No Quality: Stroke Does the patient have a stroke diagnosis?: No Physical Exam Vital Signs: Vital Signs: Last Vital Signs Temp 97.9 F 04/14/24 07:46 Pulse 61 04/14/24 10:36 Resp 18 04/14/24 07:46 BP 115/85 04/14/24 10:36 Pulse Ox 95 04/14/24 10:36 O2 Del Method Room Air 04/14/24 07:46 O2 Flow Rate 1 04/12/24 16:48 FiO2 45 04/12/24 10:27 BMI result Body Mass Index 37.2 DS: Data Data Completed and Pending Pending studies at discharge: Pending at discharge 04/12/24 08:22 Surgical [PTH] Routine Labs on day of discharge: Laboratory Results - last 24 hr 04/14/24 05:28 WBC 8.6 RBC 3.90 L Hgb 11.7 L Hct 36.0 L MCV 92.3 MCH 30.0 MCHC 32.5 RDW 13.2 Plt Count 233 MPV 10.7 Immature Gran % (Auto) 0.3 Neut % (Auto) 68.6 Lymph % (Auto) 18.8 L [place] % (Auto) 10.0 Eos % (Auto) 2.0 Baso % (Auto) 0.3 Lymph # (Auto) 1.6 [place] # (Auto) 0.9 Eos # (Auto) 0.2 Baso # (Auto) 0.0 Abs Immat Gran (auto) 0.03 Absolute Neuts (auto) 5.9 Absolute Nucleated RBC 0.000 Nucleated RBC % (auto) 0.0 Sodium 139 Potassium 4.1 Chloride 107 Carbon Dioxide 26 Anion Gap 10 L BUN 9 Creatinine 0.62 Estim Creat Clear Calc 111.2 Estimated GFR > 60 Fasting Glucose 88 Calcium 8.4 Discharge Plan Discharge Patient Disposition: Home Health Service Referrals: Chel Lozada PA-C [Physician Documentation Designer] - 04/26/24 11:00 am Discharge Medications: New celecoxib 200 mg Capsule 200 mg PO BID 30 Days Qty: 60 0RF acetaminophen 325 mg Tablet 650 mg PO Q6H PRN (Reason: Pain, Mild 1-3,Fever,Headache) 30 Days Qty: 240 0RF aspirin 325 mg Tablet 325 mg PO BID 30 Days Qty: 60 0RF docusate sodium 100 mg Capsule 100 mg PO BID 30 Days Qty: 60 0RF oxycodone 5 mg tablet 5 mg PO Q4H PRN (Reason: pain) 7 Days Qty: 42 0RF Rx Instructions: Partial Fill upon patient request. Continued (DME) walker [facility] [place] See Rx Instructions .ROUTE .MEDSUPPLY Qty: 1 0RF Rx Instructions: Folding front wheeled walker bupropion HCl 150 mg tablet extended release 24 hr 150 mg PO DAILY loratadine 10 mg tablet 10 mg PO DAILY glucosamine sulfate [Glucosamine] 500 mg Tablet 1,000 mg PO DAILY Rx Instructions: administer with a meal citalopram 20 mg tablet 20 mg PO DAILY Discontinued meloxicam 15 mg tablet 15 mg PO DAILY Qty: 30 0RF ibuprofen 200 mg Tablet 400 mg PO Q6H PRN (Reason: Pain) Discharge Orders: Discharge Order (Routine); Ordered 04/14/24 Ordered By: Jayden Avelar Diet: Advance to usual diet Activity on Discharge: Use cane or walker Activity Restrictions/Additional Instructions: Physical Therapy for total hip arthroplasty: posterior precautions, gait training, ROM, strength Limit stair climbing No showering, no tub bath-keep dressing clean, dry and intact No driving x6 weeks Continue asa tabs once a day x [address] [facility] Orthopedics in 2 weeks Print Language: Hungarian
[2024-04-14 13:37] VITALS: BP 115/85; PULSE 61; O2SAT 95
[2024-04-14 15:13] VITALS: BP 122/73; PULSE 95; RESP 20; TEMP 36.8; O2SAT 92
[2024-04-14] MEDS: Acetaminophen 325 MG TABLET 650 MG PO (15:17)
--- NOTE | 2024-04-14 15:30 | PC.NURSE ---
Nurse to nurse report called in to [facility].
== END 2024-04-14 15:31 | disposition skilled nursing facility (03) ==
LOC: HO.SSS 05:50 → HO.S3 09:38
PROVIDERS: Physician Assistant; PCP Internal Medicine; Visit Provider Orthopaedic Surgery
PROC: (CPT 27130; principal; 2024-04-12 07:30)
DX: M16.12 Unilateral primary osteoarthritis, left hip (principal); M25.552 Pain in left hip; I10 Essential (primary) hypertension; R42 Dizziness and giddiness; R06.83 Snoring; E66.9 Obesity, unspecified; Z68.36 Body mass index [BMI] 36.0-36.9, adult; F32.A Depression, unspecified; F39 Unspecified mood [affective] disorder; F41.9 Anxiety disorder, unspecified; Z79.82 Long term (current) use of aspirin; Z79.899 Other long term (current) drug therapy; Z88.1 Allergy status to other antibiotic agents; Z98.890 Other specified postprocedural states; Z87.891 Personal history of nicotine dependence
CPT/HCPCS: 27130; 36415; 72170; 80048; 85014; 85018; 85025; 86850; 86900; 86901; 87640; 87641; 88304; 88311; 88341; 88342; 97110; 97116; 97162; 97166; 97530; 97535; C1713; C1776; J0131; J0690; J1100; J1171; J1596; J2003; J2250; J2405; J2704; J2795; J3010; J7120

== ENCOUNTER → 2024-04-12 05:50 | Outpatient (BNV) | payer OTHER, SELFPAY | PROVIDERS: PCP Internal Medicine; Visit Provider Orthopaedic Surgery | DX: Z47.1 Aftercare following joint replacement surgery (principal); Z96.642 Presence of left artificial hip joint | CPT/HCPCS: 27130; 99024; G0180 ==

== ENCOUNTER → 2024-04-12 05:50 | Outpatient (BNV) | payer OTHER, SELFPAY | PROVIDERS: PCP Internal Medicine; Visit Provider Nurse Practitioner Acute Care | DX: M16.12 Unilateral primary osteoarthritis, left hip (principal) | CPT/HCPCS: 99221 ==

== ENCOUNTER → 2024-04-12 10:45 | Outpatient (BNV) | payer OTHER, SELFPAY | PROVIDERS: PCP Internal Medicine; Visit Provider Radiology Diagnostic Radiology | DX: Z96.642 Presence of left artificial hip joint (principal) | CPT/HCPCS: 72170 ==

== ENCOUNTER 2024-04-28 08:36 | Outpatient (REF) | payer OTHER, SELFPAY ==
--- NOTE | ~2024-04-28 | XR_ITS ---
EXAMINATION: XR HIP, LEFT CLINICAL INFORMATION: M25.559 - Pain in unspecified hip COMPARISON: April 12, 2024. TECHNIQUE: Two views of the left hip. AP view pelvis. FINDINGS: There is a metallic prosthesis with an acetabular and femoral component well-seated in the osseous structures appear intact with normal alignment. No loosening. Skin mercedes in the left hip soft tissues. Bony pelvis is intact. No acute fracture or dislocation right hip. Sclerosis and the sacroiliac joints. Lumbar spondylosis L4-5 and L5-S1. XR/XR hip LT min 2V IMPRESSION: Status post total left hip arthroplasty prosthesis, satisfactory. Electronically signed by: Jevon Mena MD 04/28/2024 01:07 PM [facility]
--- OUTSIDE RECORDS SUMMARY | 2024-05-01 08:49 | XMS_ITS | Data Portability ---
Author Organization [facility] Address [address] [place] [phone] Assessment No assessment recorded. Plan of Treatment Reminders Order Date Submit Date Provider Last Modified By Organization Details Last Modified Time Details Appointments None recorded. Lab rapid flu (A+B) 2021 022 [address] [facility] [address] [place], [address], 12:09:32 Referral None recorded. Procedures None recorded. Surgeries None recorded. Imaging None recorded. Medication Orders fluticasone propionate 50 mcg/actuati on nasal spray,suspe nsion 2021 [facility] #[id number], [address] [place], [address], 12:09:37 doxycycline hyclate 100 mg capsule 2021 [facility] #[id number], [address] [place], [address], 12:09:34 Patient TargetsNo targets recorded. Patient Instructions Encounter Date Encounter Id Patient Instructions Last Modified By Organization Details Last Modified Time 03/14/2022 [id number] Acute Sinusitis: Care Instructions Not available 03/14/2022 12:09:32 Reason for Referral None Reported. Results Created Date Observation Date Name Description Value Unit Range Abnormal Flag Note LastModifiedBy Organization Detail LastModifiedTime 03/14/20 22 03/14/2022 rapid flu (A+B) Unknown Analyte Normal = Negati ve Not Available tamera faulkner [address] [place], [address], 03/14/2022 11:32:39 03/14/20 22 03/14/2022 rapid flu (A+B) Unknown Analyte Normal = Negati ve Not Available 20[address]tamera faulkner [address] [place], [address], 03/14/2022 11:32:39 03/14/20 22 03/14/2022 rapid flu (A+B) Unknown Analyte negati ve Not Available 20[address]tamera [address] [place], [address], 03/14/2022 11:32:39 03/14/20 22 03/14/2022 rapid flu (A+B) Unknown Analyte negati ve Not Available 2099tamera faulkner [address] [place], [address], 03/14/2022 11:32:39 Result Notes None recorded. Problems Name Problem SNOMED Code Status Onset Date Resolution Date Notes Provider Name and Address Organization Details Recorded Time Depressive disorder 86058747 Active 022 RACHEL Hoyos - [facility] 11:31:40 Anxiety 88621066 Active 022 RACHEL Hoyos - [facility] [...] propionate 50 mcg/actuati on nasal spray,suspe nsion [place] 1 spray twice a day by intranasa l route as directed. 2021 active Not Available Not Available Not Joaquin mathis amoxicillin 875 mg-tamra white clavulanate 125 mg [...] t Available Vitals Date Recorded Body height Body mass index (BMI) Body weight Respiratory rate Heart rate Body temperature Oxygen saturation Oxygen saturation in Arterial blood by Pulse oximetry Systolic blood pressure Diastolic blood pressure Provider Name and Address Organization Details Last Updated DateTime 160.02 cm 35.4 kg/m2 33825.4 7 g 18 /min 68 /min 97.8 [degF] 96 % 96 % 132 mm[Hg] 88 mm[Hg] SHILO [facility] 11:34:45 Social History Question Answer Notes LastModified by Organizat ion Details LastModified Time Tobacco Smoking Status Current Every Day Smoker RACHEL Hoyos [facility] 03/14/2022 11:32:31 What Is Your Level Of Alcohol Consumption? Occasional [email or web address] Information not available 03/14/2022 How Much Tobacco Do You Smoke? 0.25 PPD [email or web address] Information not available 03/14/2022 Do You Use Any Illicit Or Recreational Drugs? No [email or web address] Information not available 03/14/2022 Have You Recently Traveled Abroad? No [email or web address] Information not available 03/14/2022 Do You Or Have You Ever Used Any Other Forms Of Tobacco Or Nicotine? No Information not available 03/14/2022 Sex: Unknown Functional Status None recorded. Mental Status None recorded. Family History Relationship Description Onset Age of this Age Resolved Age Notes LastModified by Organization Details LastModified Time Father No current problems or disability [email or web address] Not available 03/14 11:31:49 Mother No current problems or disability [email or web address] Not available 03/14 11:31:49 Medical History No medical history recorded. Gynecological HistoryNo gynecological history recorded. Obstetrics History GPAL:G 0 P 0 0 0 0 Past Encounters Encounter ID Performer Location Encounter Start Date Encounter Closed Date Diagnosis/Indication Diagnosis SNOMED-CT Code Diagnosis ICD10 Code Diagnosis Note [id number] [facility] [address] [facility] SHRUTHI Avendano [address] 12/23/2014 13:19:51 12/23/2014 14:31:35 [id number] [facility] [address] [place] [address] [place] [address] 03/29/2020 13:57:48 03/29/2020 18:20:10 [id number] [facility] [address] [place] [address] SHRUTHI Avendano [address] 02/28/2020 14:36:10 02/28/2020 16:53:45 [id number] [facility] [address] [place] [address] [place] [address] 07/17/2021 12:32:50 07/17/2021 13:50:01 [id number] [address] [address] [place] [address] [place] [address] 01/07/2021 08:32:19 01/07/2021 09:52:09 [id number] [facility] [address] [place] [address] [place] [address] 02/25/2021 08:04:27 02/25/2021 09:43:03 [id number] [address] [address] [place] [address] [place] [address] 06/24/2020 08:05:51 06/24/2020 08:44:00 [id number] DOROTA ISIDRO MD [address] [address] [place] [address] 03/14/2022 08:27:00 03/14/2022 12:12:43 Cough 90519332 R05.9 Acute sinusitis 68302900 J01.90 If your symptoms worsen or persist [...] Date Sequence Insurance Name Policy Number Policy Shani Covered Member ID Sahni Member ID Guarantor Name 01/07/2021 1 [facility] PLAN (MEDICAID HMO) [id number] Andressa M Hugo [id number] Andressa M Hugo 02/25/2021 1 [facility] PLAN (MEDICAID HMO) [id number] Andressa M Hugo [id number] Andressa M Hugo 07/17/2021 1 [facility] PLAN (MEDICAID HMO) [id number] Andressa M Hugo [id number] Andressa M Hugo 03/14/2022 1 [facility] PLAN (MEDICAID HMO) [id number] Andressa M Hugo [id number] Andressa M Hugo Notes Date Note Type Note Provider Name [...] Fever last night DOROTA ISIDRO MD [address] [place], [address], [place] - [facility] 03/14/2022 12:11:27 OBGyn Episode No OBEpisode recorded.
--- OUTSIDE RECORDS SUMMARY | 2024-05-01 08:50 | XMS_ITS | Encounter Summary ---
Author Organization [facility] Address [id number] [place] [address] Care Team Providers Care Pick Out Hand Name Role Phone Luis Daniel Rose MD Primary Care Provider [phone]- [phone] Encounter Details Date Type Department Care Team (Late st Contact Info) Description 04/24/[address] [facility] - Main Lab [address] [place] [phone] Luis Daniel Rose MD [address] [place] [address] [phone] Anemia, unspecified Social History Tobacco Use Types Packs/Day Years Used Date Smoking Tobacco: Never Assessed Comments Unknown Sex and Gender Information Value Date Recorded Sex Assigned at Not on file Legal Sex Female 4:15 AM EST Gender Identity Not on file Sexual Orientation Not on file documented as of this encounter Plan of Treatment Not on file documented as of this encounter Visit Diagnoses Diagnosis Anemia, unspecified documented in this encounter Care Teams Pick Out Hand Relationship Specialty Start Date End Date Luis Daniel Rose MD [address] [place] [address] PCP - General Internal Medicine 04/18/24 documented as of this encounter
--- OUTSIDE RECORDS SUMMARY | 2024-05-01 08:51 | XMS_ITS | Encounter Summary ---
Author Organization [facility] Address [address] [place] [address] Care Team Providers Care Metal Furniture Repairer Name Role Phone Luis Daniel Rose MD Primary Care Provider +1- [phone] Encounter Details Date Type Department Care Team (Late st Contact Info) Description 04/18/2024 Lab Requisition [facility] - Main Lab [address] [place] [address] Luis Daniel Rose MD [address] [place], [place] [phone] Anemia, unspecified Social History Tobacco Use Types Packs/Day Years Used Date Smoking Tobacco: Never Assessed Comments Unknown Sex and Gender Information Value Date Recorded Sex Assigned at Not on file Legal Sex Female 4:15 AM EST Gender Identity Not on file Sexual Orientation Not on file documented as of this encounter Plan of Treatment Not on file documented as of this encounter Procedures Procedure Name Priority Date/Time Associated Diagnosis Comments COMPLETE BLOOD COUNT Routine 04/18/2024 8:37 AM EST Anemia, unspecified COMPREHENSIVE METABOLIC PANEL Routine 04/18/2024 8:37 AM EST Anemia, unspecified documented in this encounter Results * (ABNORMAL) Comprehensive metabolic panel (04/18/2024 8:37 AM EST) Sodium 136 133 - 145 mmol/L LAB CHEMISTRY METHOD 04/18/2024 11:02 AM EST [facility] Potassium 4.1 3.5 - 5.5 mmol/L LAB CHEMISTRY METHOD 04/18/2024 11:02 AM EST [facility] Chloride 103 96 - 110 mmol/L LAB CHEMISTRY METHOD 04/18/2024 11:02 AM [facility] CO2 27 21 - 32 mmol/L LAB CHEMISTRY METHOD 04/18/2024 11:02 AM [facility] Anion Gap 6 3 - 11 LAB CHEMISTRY METHOD 04/18/2024 11:02 AM [facility] Glucose 110(H) 70 - 100 mg/dL LAB CHEMISTRY METHOD 04/18/2024 11:02 AM [facility] BUN 11 5 - 25 mg/dL LAB CHEMISTRY METHOD 04/18/2024 11:02 AM [facility] Creatinine 0.73 0.50 - 1.10 mg/dL LAB CHEMISTRY METHOD 04/18/2024 11:02 AM [facility] eGFR 97 >=60 mL/min/1. 73m2 LAB CHEMISTRY METHOD 04/18/2024 11:02 AM [facility] Comment:Calculation based on the??Chronic Kidney Disease Epidemiology Collaboration (CKD-EPI) equation refit??without adjustment for race. BUN/Creatinine Ratio 15.1 LAB CHEMISTRY METHOD 04/18/2024 11:02 AM [facility] Calcium 9.1 8.5 - 10.5 mg/dL LAB CHEMISTRY METHOD 04/18/2024 11:02 AM [facility] AST (SGOT) 14 10 - 42 unit/L LAB CHEMISTRY METHOD 04/18/2024 11:02 AM [facility] ALT (SGPT) 20 10 - 60 unit/L LAB CHEMISTRY METHOD 04/18/2024 11:02 AM [facility] Alkaline Phosphatase 64 42 - 121 unit/L LAB CHEMISTRY METHOD 04/18/2024 11:02 AM [facility] Total Protein 6.7 6.0 - 8.0 g/dL LAB CHEMISTRY METHOD 04/18/2024 11:02 AM [facility] Albumin 3.2 3.2 - 5.0 g/dL LAB CHEMISTRY METHOD 04/18/2024 11:02 AM [facility] Total Bilirubin 0.9 0.0 - 1.4 mg/dL LAB CHEMISTRY METHOD 04/18/2024 11:02 AM [facility] Blood Venous blood specimen / Unknown Venipuncture / Unknown 04/18/2024 8:37 AM EST 04/18/2024 9:54 AM EST Luis Daniel Rose MD LAB BLOOD ORDERABLES Final Result [facility] [address] [place] [address], * (ABNORMAL) Complete blood count (04/18/2024 8:37 AM EST) WBC 7.7 4.8 - 10.8 K/mcL LAB HEMETOLOGY METHOD 04/18/2024 11:06 AM [facility] RBC 4.40 3.80 - 4.80 M/[facility] LAB HEMETOLOGY METHOD 04/18/2024 11:06 AM [facility] Hemoglobin 13.0 11.5 - 16.0 g/dL LAB HEMETOLOGY METHOD 04/18/2024 11:06 AM [facility] Hematocrit 40.7 35.0 - 47.0 % LAB HEMETOLOGY METHOD 04/18/2024 11:06 AM [facility] MCV 93.3 79.0 - 98.0 FL LAB HEMETOLOGY METHOD 04/18/2024 11:06 AM [facility] MCH 29.8 27.0 - 32.0 pcg LAB HEMETOLOGY METHOD 04/18/2024 11:06 AM [facility] MCHC 31.9(L) 32.0 - 37.0 g/dL LAB HEMETOLOGY METHOD 04/18/2024 11:06 AM [facility] RDW 12.8 11.0 - 15.0 % LAB HEMETOLOGY METHOD 04/18/2024 11:06 AM EST [facility] Platelets 365 130 - 400 K/mcL LAB HEMETOLOGY METHOD 04/18/2024 11:06 AM EST [facility] MPV 10.3 7.0 - 11.0 FL LAB HEMETOLOGY METHOD 04/18/2024 11:06 AM EST [facility] NRBC 0.0 <1.0 % LAB HEMETOLOGY METHOD 04/18/2024 11:06 AM [facility] NRBC Absolute 0.00 <0.10 K/mcL LAB HEMETOLOGY METHOD 04/18/2024 11:06 AM [facility] Blood Venous blood specimen / Unknown Venipuncture / Unknown 04/18/2024 8:37 AM EST 04/18/2024 9:54 AM EST us Luis Daniel Rose MD LAB BLOOD ORDERABLES Final Result [facility] [address] [place] [address], documented in this encounter Visit Diagnoses Diagnosis Anemia, unspecified documented in this encounter Care Teams Metal Furniture Repairer Relationship Specialty Start Date End Date Luis Daniel Rose MD [address] [place] [id number] PCP - General Internal Medicine 04/18/24 documented as of this encounter
== END 2024-04-28 08:37 | disposition home or self-care (01) ==
LOC: HO.HOSX 08:36
PROVIDERS: Visit Provider Physician Assistant
DX: M25.552 Pain in left hip (principal); Z96.642 Presence of left artificial hip joint
CPT/HCPCS: 73502; 99212

== ENCOUNTER → 2024-04-28 12:12 | Outpatient (AMB) | payer OTHER, SELFPAY ==
--- NOTE | 2024-04-28 12:49 | MHC.OFFVIS ---
Intake Visit Reasons: 2WK PO: L VIRAJ w/NE 04/12/24 Intake Note: Andressa is a 58 year old female who presents today for a post op appointment for her left total hip arthroplasty 04/12/24 NE. Patient reports she is doing well, having little to no pain. Allergies azithromycin [From Zithromax Z-Isidoro] Allergy (Verified 04/28/24 12:51) Rash erythromycin base Adverse Reaction (Mild, Verified 04/28/24 12:51) dizzy HPI HPI 2WK PO: L VIRAJ w/NE 04/12/24: Details: Ms. Arias is a 58-year-old female who presents to the office today status post left total hip arthroplasty performed on 04/12/[address] Nichols. She is using a cane to assist with ambulation. Overall she is doing very well. She had her 1st outpatient physical therapy appointment. No additional complaints. [facility] Medical History Anxiety Habitual snoring Obesity PCOS (polycystic ovarian syndrome) HTN (hypertension) Osteoarthritis Depression Mood disorder Surgical History History of carpal tunnel surgery of right wrist Hx of cholecystectomy Social History Household Members: Family Are you a primary resident care aid to a significant other at home: No Do you presently have visiting nurse or other home services: No Alcohol intake: current Alcohol intake frequency: a few times a week Patient Tobacco Use Status: Former Tobacco user e-Cigarette/Vaping Use: Currently Using service: No Current occupational status: employed 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 [place] intact. No surrounding erythema or drainage. No signs of infection. Able to perform straight leg raise. Good internal external rotation. NVI. Assessment & Plan Assessment & Plan (1) S/P total hip arthroplasty: Code(s): Z96.649 - Presence of unspecified artificial hip joint Category: Surgical Plan Ms. Arias is a 58-year-old female who presents to the office today status post left total hip arthroplasty performed on 04/12/[address] Nichols. She is using a cane to assist with ambulation. Overall she is doing very well. She had her 1st outpatient physical therapy appointment. No additional complaints. While in the office today, mercedes are removed. Steri-Strips were applied. Patient will continue working with physical therapy. Her next follow-up will be in [address] Nichols, sooner if needed. X-rays of the left hip and pelvis which were obtained while in the office today and were reviewed by me, Chel Lozada PA-C, revealed intact left hip arthroplasty. Orders: Orders XR hip LT min 2V Today M25.559 - Pain in unspecified hip Medications: Changed From oxycodone Partial Fill upon patient request. 5 mg PO Q4H 7 days PRN 42 tabs 0RF pain To oxycodone Partial Fill upon patient request. 5 mg PO Q6H PRN 28 tabs 0RF pain 7 days Coding Level of Care Code Global (03212) Diagnoses S/P total hip arthroplasty Z96.649
== END | disposition home or self-care (01) ==
PROVIDERS: PCP Internal Medicine; Visit Provider Physician Assistant
DX: Z96.649 Presence of unspecified artificial hip joint (principal)
CPT/HCPCS: 99024

== ENCOUNTER → 2024-04-28 12:40 | Outpatient (BNV) | payer OTHER, SELFPAY | PROVIDERS: Visit Provider Radiology Diagnostic Radiology | DX: M25.552 Pain in left hip (principal) | CPT/HCPCS: 73502 ==

== ENCOUNTER 2024-05-18 08:47 | Outpatient (REF) | payer OTHER, SELFPAY ==
--- NOTE | ~2024-05-18 | XR_ITS ---
CLINICAL HISTORY: M25.559 - Pain in unspecified hip Single AP view pelvis Comparison: MO/SR - XR HIP LT MIN 2V - 04/28/24 12:40 EST CR/SR - XR PELVIS 1-2V - 04/12/24 10:42 EST Findings: No fractures, subluxations or dislocations. Left total hip arthroplasty in gross anatomic alignment No significant arthritic change. Normal congruency both hip joints. Normal sacroiliac joints. Pubic rami and symphysis pubis intact. No evidence of avulsion injury. Normal bone mineralization and soft tissues. No radiopaque foreign body. Impression: 1. No acute fractures or malalignment. Left total hip arthroplasty in anatomic alignment This document has been electronically signed by: Brendon Peñaloza MD on 05/18/2024 09:41:23
== END 2024-05-18 08:48 | disposition home or self-care (01) ==
LOC: HO.HOSX 08:47
PROVIDERS: PCP Internal Medicine; Visit Provider Orthopaedic Surgery
DX: M25.559 Pain in unspecified hip (principal); Z96.642 Presence of left artificial hip joint
CPT/HCPCS: 72170; 99212

== ENCOUNTER 2024-05-18 08:47 | Outpatient (AMB) | payer OTHER, SELFPAY ==
[2024-05-18 08:58] VITALS: BMI 36.9
--- NOTE | 2024-05-18 08:58 | A.OFFVIS_ITS ---
Vital Signs 05/18/24 08:58 Height 5 ft 2.5 in Weight 205 lb BMI 36.9 Intake Visit Reasons: 6WK PO: L VIRAJ w/NE 04/12/24 Intake Note: Andressa is a 58 year old female who presents today for a post operative appointment s/p Left VIRAJ 03/23/24. Patient reports that she is dong well, she has no concerns at this time. She continues to take the Aspirin 325mg, and will occasionally take Tylenol after Physical therapy appointments. She is doing well with Physical therapy. Allergies azithromycin [From Zithromax Z-Isidoro] Allergy (Verified 04/28/24 12:51) Rash erythromycin base Adverse Reaction (Mild, Verified 04/28/24 12:51) dizzy HPI HPI 6WK PO: L VIRAJ w/NE 04/12/24: Details: Doign well. No complaints. [facility] Medical History Osteoarthritis of left hip Anxiety Habitual snoring Obesity PCOS (polycystic ovarian syndrome) HTN (hypertension) Osteoarthritis Depression Mood disorder Surgical History History of carpal tunnel surgery of right wrist Hx of cholecystectomy Social History Household Members: Family Are you a primary emergency care tech to a significant other at home: No Do you presently have visiting nurse or other home services: No Alcohol intake: current Alcohol intake frequency: a few times a week Patient Tobacco Use Status: Former Tobacco user e-Cigarette/Vaping Use: Currently Using service: No Current occupational status: employed 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 May return to working out. Posterior hip precautions discussed. f/u 6 weeks with PA Orders: Orders XR pelvis 1-2V Today M25.559 - Pain in unspecified hip Coding Level of Care Code Global (84516) Diagnoses S/P total hip arthroplasty Z96.649
--- OUTSIDE RECORDS SUMMARY | 2024-05-18 09:20 | XMS_ITS | Data Portability ---
Author Organization [facility]ACHEL [facility]ton [facility] Address [address] [place] [address] Assessment No assessment recorded. Plan of Treatment Reminders Order Date Submit Date Provider Last Modified By Organization Details Last Modified Time Details Appointments None recorded. Lab rapid flu (A+B) 2021 022 dberkson 1 [facility], [address] [place], [address], 12:09:32 Referral None recorded. Procedures None recorded. Surgeries None recorded. Imaging None recorded. Medication Orders fluticasone propionate 50 mcg/actuati on nasal spray,suspe nsion 2021 [id number], [address] [place], [address], 12:09:37 doxycycline hyclate 100 mg capsule 2021 [id number], [address] [place], [address], 12:09:34 Patient TargetsNo targets recorded. Patient Instructions Encounter Date Encounter Id Patient Instructions Last Modified By Organization Details Last Modified Time 03/14/2022 [id number] Acute Sinusitis: Care Instructions [email or web address] Not available 03/14/2022 12:09:32 Reason for Referral None Reported. Results Created Date Observation Date Name Description Value Unit Range Abnormal Flag Note LastModifiedBy Organization Detail LastModifiedTime 03/14/20 22 03/14/2022 rapid flu (A+B) Unknown Analyte Normal = Negati ve Not Available tamera faulkner [address] [place], [address], 03/14/2022 11:32:39 03/14/20 22 03/14/2022 rapid flu (A+B) Unknown Analyte Normal = Negati ve Not Available 2099tamera faulkner [address] [place], [address], 03/14/2022 11:32:39 03/14/20 22 03/14/2022 rapid flu (A+B) Unknown Analyte negati ve Not Available 2099tamera faulkner [address] [place], [address], 03/14/2022 11:32:39 03/14/20 22 03/14/2022 rapid flu (A+B) Unknown Analyte negati ve Not Available 2099tamera faulkner [address] [place], [address], 03/14/2022 11:32:39 Result Notes None recorded. Problems Name Problem SNOMED Code Status Onset Date Resolution Date Notes Provider Name and Address Organization Details Recorded Time Depressive disorder 30575287 Active 022 RACHEL oHyos - [facility] 11:31:40 Anxiety 97882830 Active 022 RACHEL Hoyos - [facility] [...] propionate 50 mcg/actuati on nasal spray,suspe nsion [place] 1 spray twice a day by intranasa [...] Last Updated DateTime 160.02 cm 35.4 kg/m2 44755.4 7 g 18 /min 68 /min 97.8 [degF] 96 % 96 % 132 mm[Hg] 88 mm[Hg] SHILO [facility] 11:34:45 Social History Question Answer Notes LastModified by Organizat ion Details LastModified Time Tobacco Smoking Status Current Every Day Smoker RACHEL Hoyos [facility] 03/14/2022 11:32:31 What Is Your Level Of Alcohol Consumption? Occasional [email or web address] Information not available 03/14/2022 How Much Tobacco Do You Smoke? 0.25 PPD [email or web address] Information not available 03/14/2022 Do You Use Any Illicit Or Recreational Drugs? No [email or web address] Information not available 03/14/2022 Have You Recently Traveled Abroad? No [email or web address] Information not available 03/14/2022 Do You Or Have You Ever Used Any Other Forms Of Tobacco Or Nicotine? No [email or web address] Information not available 03/14/2022 Sex: Unknown Functional Status None recorded. Mental Status None recorded. Family History Relationship Description Onset Age of this Age Resolved Age Notes LastModified by Organization Details LastModified Time Father No current problems or disability [email or web address] Not available 03/14 11:31:49 Mother No current problems or disability [email or web address] Not available 03/14 11:31:49 Medical History No medical history recorded. Gynecological HistoryNo gynecological history recorded. Obstetrics History GPAL:G 0 P 0 0 0 0 Past Encounters Encounter ID Performer Location Encounter Start Date Encounter Closed Date Diagnosis/Indication Diagnosis SNOMED-CT Code Diagnosis ICD10 Code Diagnosis Note [id number] [facility] [address] [facility] SHRUTHI Avendano [address] 12/23/2014 13:19:51 12/23/2014 14:31:35 [id number] [facility] [address] [place] [address] [place] [address] 03/29/2020 13:57:48 03/29/2020 18:20:10 [id number] [facility] [address] [place] [address] SHRUTHI Avendano [address] 02/28/2020 14:36:10 02/28/2020 16:53:45 [id number] [facility] [address] [place] [address] [place] [address] 07/17/2021 12:32:50 07/17/2021 13:50:01 [id number] 20[address] [address] [place] [address] [place] [address] 01/07/2021 08:32:19 01/07/2021 09:52:09 [id number] [facility] [address] [place] [address] [place] [address] 02/25/2021 08:04:27 02/25/2021 09:43:03 [id number] [address] [place] [address] [place] [address] 06/24/2020 08:05:51 06/24/2020 08:44:00 [id number] DOROTA ISIDRO MD [address] [facility] [place] [address] 03/14/2022 08:27:00 03/14/2022 12:12:43 Cough 58967277 R05.9 Acute sinusitis 52015564 J01.90 If your symptoms worsen or persist [...] Sahni Member ID Guarantor Name 01/07/[address] [facility] (MEDICAID HMO) [id number] Andressa M Hugo [id number] Andressa M Hugo 02/25/[address] [facility] (MEDICAID HMO) [id number] Andressa M Hugo [id number] Andressa M Hugo 07/17/[address] [facility] (MEDICAID HMO) [id number] Andressa M Hugo [id number] Andressa M Hugo 03/14/[address] [facility] (MEDICAID HMO) [id number] Andressa M Hugo [id number] Andressa M Hugo Notes Date Note [...] DOROTA ISIDRO MD [address] [place], [address], [place] - [facility] 03/14/2022 12:11:27 OBGyn Episode No OBEpisode recorded.
--- OUTSIDE RECORDS SUMMARY | 2024-05-18 09:20 | XMS_ITS | Encounter Summary ---
Author Organization [facility] Address [address] [place] [address] Care Team Providers Care Front End Mechanic Name Role Phone Luis Daniel Rose MD Primary Care Provider +1- [phone] Encounter Details Date Type Department Care Team (Late st Contact Info) Description 04/24/2024 Lab Requisition [facility] - Main Lab [address] [address] [place] [phone] Luis Daniel Rose MD [address] [place] [phone] Anemia, unspecified Social History Tobacco Use Types [...] unspecified documented in this encounter Care Teams Front End Mechanic Relationship Specialty Start Date End Date Luis Daniel Rose MD [address] [place] [address] PCP - General Internal Medicine 04/18/24 documented as of this encounter
--- OUTSIDE RECORDS SUMMARY | 2024-05-18 09:20 | XMS_ITS | Clinical Summary ---
Author Organization [address] Address [address] [place] [address] Phone Care Team Providers Care Dispatcher Bus And Trolley Name Role Phone Luis Daniel Rose MD Primary Care Provider +1- [phone] Encounters Date Type Department Care Team Description 04/24/2024 Lab Requisition [facility] Lab [address] [place] [phone] Luis Daniel Rose MD Anemia, unspecified 04/18/2024 Lab Requisition [facility] [address] [place] [phone] Luis Daniel Rose MD Anemia, unspecified from Last 3 Months Social History Tobacco Use Types Packs/Day Years Used Date Smoking Tobacco: Never Assessed Comments Unknown Sex and Gender Information Value Date Recorded Sex Assigned at Not on file Legal Sex Female 4:15 AM EST Gender Identity Not on file Sexual Orientation Not on file Plan of Treatment Health Maintenance Due Date Last Done Comments Breast Cancer Screening 1965 DTaP,Tdap,and Td Vaccines (1 - Tdap) 12/13/1986 Hepatitis B Vaccines (1 of 3 - 19+ 3-dose series) 12/13/1986 Cervical Cancer Screening: P ap Smear 12/13/1988 Pneumococcal Vaccine: 50+ Years (1 of 1 - PCV) 12/13/2017 Zoster Vaccines (1 of 2) 12/13/2017 Cholesterol Screening (Lipid Panel) 02/22/2022 Colorectal Cancer Screening: Colonoscopy 02/22/2022 Depression Screening 02/22/2022 HIV Screening 02/22/2022 Hepatitis C Screening 02/22/2022 Social Influencers of Health Screening 02/22/2022 COVID-19 Vaccine (3 - 2023-2 5 season) 2023 01/29/2021, 01/08/2021 Influenza Vaccine (#1) 2023 HIB Vaccines Aged Out No longer eligi ble based on patient's age to complete this topic HPV Vaccines Aged Out No longer eligi ble based on patient's age to complete this topic Hepatitis A Vaccines Aged Out No long er eligible based on patient's age to complete this topic IPV Vaccines Aged Out No longer eligi ble based on patient's age to complete this topic MMR Vaccines Aged Out No longer eligi ble based on patient's age to complete this topic Meningococcal ACWY Vaccine Aged Out N o longer eligible based on patient's age to complete this topic Meningococcal B Vacine Aged Out No lo nger eligible based on patient's age to complete this topic Pneumococcal Vaccine: Pediatrics (0 to 5 Years) and At-Risk Patients (6 to 64 Years) Aged Out No longer eligible b ased on patient's age to complete this topic RSV Immunization Patients Under 20 months Aged Out No longer eligible b ased on patient's age to complete this topic Varicella Vaccines Aged Out No longer eligible based on patient's age to complete this topic Procedures Procedure Name Priority Date/Time Associated Diagnosis Comments COMPREHENSIVE METABOLIC PANEL Routine 04/18/2024 8:37 AM EST Anemia, unspecified COMPLETE BLOOD COUNT Routine 04/18/2024 8:37 AM EST Anemia, unspecified from Last 3 Months Results * (ABNORMAL) Complete blood count (04/18/2024 8:37 AM EST) WBC 7.7 4.8 - 10.8 K/mcL LAB HEMETOLOGY METHOD 04/18/2024 11:06 AM [facility] RBC 4.40 3.80 - 4.80 M/mcL LAB HEMETOLOGY METHOD 04/18/2024 11:06 AM [facility] Hemoglobin 13.0 11.5 - 16.0 g/dL LAB HEMETOLOGY METHOD 04/18/2024 11:06 AM [facility] Hematocrit 40.7 35.0 - 47.0 % LAB HEMETOLOGY METHOD 04/18/2024 11:06 AM EST [facility] MCV 93.3 79.0 - 98.0 FL LAB HEMETOLOGY METHOD 04/18/2024 11:06 AM [facility] MCH 29.8 27.0 - 32.0 pcg LAB HEMETOLOGY METHOD 04/18/2024 11:06 AM [facility] MCHC 31.9(L) 32.0 - 37.0 g/dL LAB HEMETOLOGY METHOD 04/18/2024 11:06 AM EST [facility] RDW 12.8 11.0 - 15.0 % LAB HEMETOLOGY METHOD 04/18/2024 11:06 AM [facility] Platelets 365 130 - 400 K/mcL LAB HEMETOLOGY METHOD 04/18/2024 11:06 AM [facility] MPV 10.3 7.0 - 11.0 FL LAB HEMETOLOGY METHOD 04/18/2024 11:06 AM EST [facility] NRBC 0.0 <1.0 % LAB HEMETOLOGY METHOD 04/18/2024 11:06 AM [facility] NRBC Absolute 0.00 <0.10 K/mcL LAB HEMETOLOGY METHOD 04/18/2024 11:06 AM [facility] Blood Venous blood specimen / Unknown Venipuncture / Unknown 04/18/2024 8:37 AM EST 04/18/2024 9:54 AM EST us Luis Daniel Rose MD LAB BLOOD ORDERABLES Final Result [facility] [address] [place] [address], * (ABNORMAL) Comprehensive metabolic panel (04/18/2024 8:37 AM EST) [facility] Sodium 136 133 - 145 mmol/L LAB CHEMISTRY METHOD 04/18/2024 11:02 AM [facility] Potassium 4.1 3.5 - 5.5 mmol/L LAB CHEMISTRY METHOD 04/18/2024 11:02 AM [facility] Chloride 103 96 - 110 mmol/L LAB CHEMISTRY METHOD 04/18/2024 11:02 AM [facility] CO2 27 21 - 32 mmol/L LAB CHEMISTRY METHOD 04/18/2024 11:02 AM [facility] Anion Gap 6 3 - 11 LAB CHEMISTRY METHOD 04/18/2024 11:02 AM [facility] Glucose 110(H) 70 - 100 mg/dL LAB CHEMISTRY METHOD 04/18/2024 11:02 AM [facility] BUN 11 5 - 25 mg/dL LAB CHEMISTRY METHOD 04/18/2024 11:02 AM [facility] Creatinine 0.73 0.50 - 1.10 mg/dL LAB CHEMISTRY METHOD 04/18/2024 11:02 AM [facility] eGFR 97 >=60 mL/min/1. 73m2 LAB CHEMISTRY METHOD 04/18/2024 11:02 AM [facility] Comment:Calculation based on the??Chronic Kidney Disease Epidemiology Collaboration (CKD-EPI) equation refit??without adjustment for race. BUN/Creatinine Ratio 15.1 LAB CHEMISTRY METHOD 04/18/2024 11:02 AM [facility] Calcium 9.1 8.5 - 10.5 mg/dL LAB CHEMISTRY METHOD 04/18/2024 11:02 AM [facility] AST (SGOT) 14 10 - 42 unit/L LAB CHEMISTRY METHOD 04/18/2024 11:02 AM [facility] ALT (SGPT) 20 10 - 60 unit/L LAB CHEMISTRY METHOD 04/18/2024 11:02 AM [facility] Alkaline Phosphatase 64 42 - 121 unit/L LAB CHEMISTRY METHOD 04/18/2024 11:02 AM EST [facility] Total Protein 6.7 6.0 - 8.0 g/dL LAB CHEMISTRY METHOD 04/18/2024 11:02 AM EST [facility] Albumin 3.2 3.2 - 5.0 g/dL LAB CHEMISTRY METHOD 04/18/2024 11:02 AM EST [facility] Total Bilirubin 0.9 0.0 - 1.4 mg/dL LAB CHEMISTRY METHOD 04/18/2024 11:02 AM EST [facility] Blood Venous blood specimen / Unknown Venipuncture / Unknown 04/18/2024 8:37 AM EST 04/18/2024 9:54 AM EST us Luis Daniel Rose MD LAB BLOOD ORDERABLES Final Result [facility] [address] [place] [address], from Last 3 Months Insurance [facility] Care Teams Dispatcher Bus And Trolley Relationship Specialty Start Date End Date Luis Daniel Rose MD [address] [place] [address] PCP - General Internal Medicine 04/18/24
--- OUTSIDE RECORDS SUMMARY | 2024-05-18 09:20 | XMS_ITS | Encounter Summary ---
Author Organization [facility] Address [address] [place] [address] Care Team Providers Care Assistant Chief Engineer Name Role Phone Luis Daniel Rose MD Primary Care Provider +1- [phone] Encounter Details Date Type Department Care Team (Late st Contact Info) Description 04/18/2024 Lab Requisition [facility] - Main Lab [address] [place] [address] Luis Daniel Rose MD [address] [place], [place] [phone] Anemia, unspecified Social History Tobacco Use Types [...] LAB CHEMISTRY METHOD 04/18/2024 11:02 AM EST [facility] Potassium 4.1 3.5 - 5.5 mmol/L LAB CHEMISTRY METHOD 04/18/2024 11:02 AM EST [facility] Chloride 103 96 - 110 mmol/L LAB CHEMISTRY METHOD 04/18/2024 11:02 AM [facility] CO2 27 21 - 32 mmol/L LAB CHEMISTRY METHOD 04/18/2024 11:02 AM [facility] Anion Gap 6 3 - 11 LAB CHEMISTRY METHOD 04/18/2024 11:02 AM [facility] Glucose 110(H) 70 - 100 mg/dL LAB CHEMISTRY METHOD 04/18/2024 11:02 AM [facility] BUN 11 5 - 25 mg/dL LAB CHEMISTRY METHOD 04/18/2024 11:02 AM [facility] Creatinine 0.73 0.50 - 1.10 mg/dL LAB CHEMISTRY METHOD 04/18/2024 11:02 AM [facility] eGFR 97 >=60 mL/min/1. 73m2 LAB CHEMISTRY METHOD 04/18/2024 11:02 AM [facility] Comment:Calculation based on the??Chronic Kidney Disease Epidemiology Collaboration (CKD-EPI) equation refit??without adjustment for race. BUN/Creatinine Ratio 15.1 LAB CHEMISTRY METHOD 04/18/2024 11:02 AM [facility] Calcium 9.1 8.5 - 10.5 mg/dL LAB CHEMISTRY METHOD 04/18/2024 11:02 AM [facility] AST (SGOT) 14 10 - 42 unit/L LAB CHEMISTRY METHOD 04/18/2024 11:02 AM [facility] ALT (SGPT) 20 10 - 60 unit/L LAB CHEMISTRY METHOD 04/18/2024 11:02 AM [facility] Alkaline Phosphatase 64 42 - 121 unit/L LAB CHEMISTRY METHOD 04/18/2024 11:02 AM [facility] Total Protein 6.7 6.0 - 8.0 g/dL LAB CHEMISTRY METHOD 04/18/2024 11:02 AM [facility] Albumin 3.2 3.2 - 5.0 g/dL LAB CHEMISTRY METHOD 04/18/2024 11:02 AM [facility] Total Bilirubin 0.9 0.0 - 1.4 mg/dL LAB CHEMISTRY METHOD 04/18/2024 11:02 AM [facility] Blood Venous blood specimen / Unknown Venipuncture / Unknown 04/18/2024 8:37 AM EST 04/18/2024 9:54 AM EST Luis Daniel Rose MD LAB BLOOD ORDERABLES Final Result [facility] [address] [place] [address], * (ABNORMAL) Complete blood count (04/18/2024 8:37 AM EST) WBC 7.7 4.8 - 10.8 K/mcL LAB HEMETOLOGY METHOD 04/18/2024 11:06 AM [facility] RBC 4.40 3.80 - 4.80 M/[facility] LAB HEMETOLOGY METHOD 04/18/2024 11:06 AM [facility] Hemoglobin 13.0 11.5 - 16.0 g/dL LAB HEMETOLOGY METHOD 04/18/2024 11:06 AM [facility] Hematocrit 40.7 35.0 - 47.0 % LAB HEMETOLOGY METHOD 04/18/2024 11:06 AM [facility] MCV 93.3 79.0 - 98.0 FL LAB HEMETOLOGY METHOD 04/18/2024 11:06 AM [facility] MCH 29.8 27.0 - 32.0 pcg LAB HEMETOLOGY METHOD 04/18/2024 11:06 AM [facility] MCHC 31.9(L) 32.0 - 37.0 g/dL LAB HEMETOLOGY METHOD 04/18/2024 11:06 AM [facility] RDW 12.8 11.0 - 15.0 % LAB HEMETOLOGY METHOD 04/18/2024 11:06 AM EST [facility] Platelets 365 130 - 400 K/mcL LAB HEMETOLOGY METHOD 04/18/2024 11:06 AM EST [facility] MPV 10.3 7.0 - 11.0 FL LAB HEMETOLOGY METHOD 04/18/2024 11:06 AM EST [facility] NRBC 0.0 <1.0 % LAB HEMETOLOGY METHOD 04/18/2024 11:06 AM [facility] NRBC Absolute 0.00 <0.10 K/mcL LAB HEMETOLOGY METHOD 04/18/2024 11:06 AM [facility] Blood Venous blood specimen / Unknown Venipuncture / Unknown 04/18/2024 8:37 AM EST 04/18/2024 9:54 AM EST us Luis Daniel Rose MD LAB BLOOD ORDERABLES Final Result [facility] [address] [place] [address], documented in this encounter Visit Diagnoses Diagnosis Anemia, unspecified documented in this encounter Care Teams Assistant Chief Engineer Relationship Specialty Start Date End Date Luis Daniel Rose MD [address] [place] [address] PCP - General Internal Medicine 04/18/24 documented as of this encounter
== END 2024-05-18 09:28 | disposition home or self-care (01) ==
PROVIDERS: PCP Internal Medicine; Visit Provider Orthopaedic Surgery
DX: Z96.649 Presence of unspecified artificial hip joint (principal)
CPT/HCPCS: 99024

== ENCOUNTER → 2024-05-18 09:05 | Outpatient (BNV) | payer OTHER, SELFPAY | PROVIDERS: PCP Internal Medicine; Visit Provider Radiology Diagnostic Radiology | DX: M25.559 Pain in unspecified hip (principal); Z96.642 Presence of left artificial hip joint | CPT/HCPCS: 72170 ==

== ENCOUNTER 2024-06-22 10:00 | Outpatient (RCR) | payer OTHER, SELFPAY ==
--- NOTE | 2024-04-26 12:26 | MHC.PT.EP ---
[facility] [place] [facility] [place] [facility] [place] [facility] [address] [phone] F: [phone] F: [phone] F: [phone] F: [phone] Physical Therapy Plan of Care Date of Evaluation: 04/26/24 Date of Surgery: 04/12/24 Diagnosis: s/p L VIRAJ 04/12/24 Assessment: Patient is a 58 year old R handed female who presents with s/s consistent with s/p L VIRAJ 04/12/24. 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 Patient past medical history includes anxiety, PECOS, obesity and HTN. Current impairments include pain, balance, ROM, strength, activity tolerance and functional mobility. Functional limitations include decreased ability to transfer, sleep, walk, negotiate stairs, run errands and exercise. Patient is motivated with good rehab potential. Skilled PT will address impairments and functional limitations in order to achieve goals. Frequency and Duration: The patient will be seen 2x/weeks for 6 weeks Short Term Goals: Symmetrical gait with no AD - 3 weeks I with HEP -2 weeks SLB > 10 seconds - 3 weeks Marketing Engineer Goals: LEFS 54/80 - 5 weeks Strength 4+/5 grossly - 5 weeks Pain free return to all ex classes - 6 weeks Treatment Plan: Modalities to reduce pain, spasms and effusion. Manual therapy to restore motion and function. Therapeutic exercise to improve strength and flexibility. Neuromuscular re-education for posture and balance. Therapeutic activities to return to functional activities of daily living. Electronically signed by: Regis Hollingsworth, PT Please sign and return to therapist. Thank you for your referral.
--- NOTE | 2024-10-10 10:12 | MHC.PT.DC ---
[facility] [place] Office [place] Office [place] Office [address] Michelle Key [address] [phone] F: [phone] F: [phone] F: [phone] F: [phone] Physical Therapy Discharge Report Diagnosis: s/p L VIRAJ 04/12/24 Date of Surgery: 04/12/24 Date of Evaluation: 04/26/24 Date of Discharge: 08/11/24 Treatments to Date: 8 Cancellations to Date: No Shows to Date: Discharge Status: Independent with HEP Discharge Summary: 06/22/24: Symmetrical gait, I with HEP. SLB 20 seconds, return to most ex classes, LEFS 48/80. Pt is appropriate to d/c to HEP at this time. 06/20/24: pt progressing well. developed plan for transitions to/from floor with practice. we will plan to d/c to HEP next visit. 06/13/24: improved symmetrical gait pattern. I with HEP. SLB > 10 seconds. Strength improving. pt on pace to d/c to HEP next week. 06/06/24: pt progressing well with skilled PT. focused on lat lunges today as pt notes this is still challenging for her. improved stair mechanics. 05/23; Pt SLS on foam EO 10-15 sec, which improved 10 sec. Pt had no c/o knee pain with walk outs. Challenged with balance board. 05/18/24: pt progressing well with skilled PT. still with some L hip weakness but improving. improve lat stair mechanics with increased reps. 05/11; Pt reported decreased sorness after stretches. Pt SLS on foam EO 3-5 sec. 05/03; Pt challenged with balance exs. Pt hip ROM increased in standing with hip exs. NV review balance exs 05/02; Pt fallon exs well. Pt performed stairs with min hesitation descending stair. Pt has sl decrease hip range performing hip exs. Assess NV and progress as fallon. Include balance exs. Patient is a 58 year old R handed female who presents with s/s consistent with s/p L VIRAJ 04/12/24. 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 Patient past medical history includes anxiety, PECOS, obesity and HTN. Current impairments include pain, balance, ROM, strength, activity tolerance and functional mobility. Functional limitations include decreased ability to transfer, sleep, walk, negotiate stairs, run errands and exercise. Patient is motivated with good rehab potential. Skilled PT will address impairments and functional limitations in order to achieve goals. Electronically signed by: Regis Hollingsworth, PT Please sign and return to therapist. Thank you for your referral.
== END 2024-10-10 10:13 | disposition home or self-care (01) ==
LOC: HO.PTCHIC 10:00
PROVIDERS: PCP Internal Medicine; Visit Provider Physician Assistant
DX: Z96.642 Presence of left artificial hip joint (principal)
CPT/HCPCS: 97110; 97112; 97140; 97162; 97530

== ENCOUNTER 2024-06-28 14:22 | Outpatient (REF) | payer OTHER, SELFPAY ==
--- OUTSIDE RECORDS SUMMARY | 2024-06-28 16:39 | XMS_ITS | Encounter Summary ---
Author Organization [facility] Address [address] [place] [phone] Care Team Providers Care Balloon Artist Name Role Phone Luis Daniel Rose MD Primary Care Provider +1- [phone] Encounter Details Date Type Department Care Team (Late st Contact Info) Description 04/24/2024 Lab Requisition [facility] - Main Lab [address] [facility] [facility] [facility] [place] [phone] Luis Daniel Rose MD [address] [place] [phone] Anemia, unspecified Social History Tobacco Use Types [...] unspecified documented in this encounter Care Teams Balloon Artist Relationship Specialty Start Date End Date Luis Daniel Rose MD [address] [place] [address] PCP - General Internal Medicine 04/18/24 documented as of this encounter
--- OUTSIDE RECORDS SUMMARY | 2024-06-28 16:39 | XMS_ITS | Encounter Summary ---
Author Organization [facility] Address [address] [place] [address] Team Prov[address] Care [address] Scientist Name Role Phone Luis Daniel Rose MD Primary Care Provider +1- [phone] Encounter Details Date Type Department Care Team (Late st Contact Info) Description 04/18/[address] [facility] Lab [address] [place] [address] Luis Daniel Rose MD [address] [place], [place] [phone] Anemia, unspecified Social History Tobacco Use Types [...] LAB CHEMISTRY METHOD 04/18/2024 11:02 AM EST [facility] LAB Potassium 4.1 3.5 - 5.5 mmol/L LAB CHEMISTRY METHOD 04/18/2024 11:02 AM EST [facility] Chloride 103 96 - 110 mmol/L LAB CHEMISTRY METHOD 04/18/2024 11:02 AM [facility] LAB CO2 27 21 - 32 mmol/L LAB CHEMISTRY METHOD 04/18/2024 11:02 AM [facility] LAB Anion Gap 6 3 - 11 LAB CHEMISTRY METHOD 04/18/2024 11:02 AM [facility] LAB Glucose 110(H) 70 - 100 mg/dL LAB CHEMISTRY METHOD 04/18/2024 11:02 AM [facility] LAB BUN 11 5 - 25 mg/dL LAB CHEMISTRY METHOD 04/18/2024 11:02 AM [facility] LAB Creatinine 0.73 0.50 - 1.10 mg/dL LAB CHEMISTRY METHOD 04/18/2024 11:02 AM [facility] LAB eGFR 97 >=60 mL/min/1. 73m2 LAB CHEMISTRY METHOD 04/18/2024 11:02 AM [facility] LAB Comment:Calculation based on the??Chronic Kidney Disease Epidemiology Collaboration (CKD-EPI) equation refit??without adjustment for race. BUN/Creatinine Ratio 15.1 LAB CHEMISTRY METHOD 04/18/2024 11:02 AM [facility] LAB Calcium 9.1 8.5 - 10.5 mg/dL LAB CHEMISTRY METHOD 04/18/2024 11:02 AM [facility] LAB AST (SGOT) 14 10 - 42 unit/L LAB CHEMISTRY METHOD 04/18/2024 11:02 AM [facility] LAB ALT (SGPT) 20 10 - 60 unit/L LAB CHEMISTRY METHOD 04/18/2024 11:02 AM [facility] LAB Alkaline Phosphatase 64 42 - 121 unit/L LAB CHEMISTRY METHOD 04/18/2024 11:02 AM [facility] Total Protein 6.7 6.0 - 8.0 g/dL LAB CHEMISTRY METHOD 04/18/2024 11:02 AM [facility] Albumin 3.2 3.2 - 5.0 g/dL LAB CHEMISTRY METHOD 04/18/2024 11:02 AM [facility] Total Bilirubin 0.9 0.0 - 1.4 mg/dL LAB CHEMISTRY METHOD 04/18/2024 11:02 AM [facility] LAB Blood Venous blood specimen / Unknown Venipuncture / Unknown 04/18/2024 8:37 AM EST 04/18/2024 9:54 AM EST Luis Daniel Rose MD LAB BLOOD ORDERABLES Final Result [facility] [address] [place] [address], * (ABNORMAL) Complete blood count (04/18/2024 8:37 AM EST) WBC 7.7 4.8 - 10.8 K/mcL LAB HEMETOLOGY METHOD 04/18/2024 11:06 AM [facility] LAB RBC 4.40 3.80 - 4.80 M/[facility] LAB HEMETOLOGY METHOD 04/18/2024 11:06 AM [facility] LAB Hemoglobin 13.0 11.5 - 16.0 g/dL LAB HEMETOLOGY METHOD 04/18/2024 11:06 AM [facility] LAB Hematocrit 40.7 35.0 - 47.0 % LAB HEMETOLOGY METHOD 04/18/2024 11:06 AM [facility] LAB MCV 93.3 79.0 - 98.0 FL LAB HEMETOLOGY METHOD 04/18/2024 11:06 AM [facility] LAB MCH 29.8 27.0 - 32.0 pcg LAB HEMETOLOGY METHOD 04/18/2024 11:06 AM [facility] LAB MCHC 31.9(L) 32.0 - 37.0 g/dL LAB HEMETOLOGY METHOD 04/18/2024 11:06 AM [facility] LAB RDW 12.8 11.0 - 15.0 % LAB HEMETOLOGY METHOD 04/18/2024 11:06 AM EST [facility] Platelets 365 130 - 400 K/mcL LAB HEMETOLOGY METHOD 04/18/2024 11:06 AM EST [facility] MPV 10.3 7.0 - 11.0 FL LAB HEMETOLOGY METHOD 04/18/2024 11:06 AM EST [facility] NRBC 0.0 <1.0 % LAB HEMETOLOGY METHOD 04/18/2024 11:06 AM [facility] LAB NRBC Absolute 0.00 <0.10 K/mcL LAB HEMETOLOGY METHOD 04/18/2024 11:06 AM [facility] Blood Venous blood specimen / Unknown Venipuncture / Unknown 04/18/2024 8:37 AM EST 04/18/2024 9:54 AM EST us Luis Daniel Rose MD LAB BLOOD ORDERABLES Final Result [facility] [address] [place] [address], documented in this encounter Visit Diagnoses Diagnosis Anemia, unspecified documented in this encounter Care Teams Rd Scientist Relationship Specialty Start Date End Date Luis Daniel Rose MD [address] [place] [address] PCP - General Internal Medicine 04/18/24 documented as of this encounter
--- OUTSIDE RECORDS SUMMARY | 2024-06-28 16:39 | XMS_ITS | Data Portability ---
Author Organization [facility] Address [address] [place] [address] Assessment No assessment recorded. Plan of Treatment Reminders Order Date Submit Date Provider Last Modified By Organization Details Last Modified Time Details Appointments None recorded. Lab rapid flu (A+B) 2021 022 [email or web address] 1 [facility] [address] [place], [address], 12:09:32 Referral None recorded. Procedures None recorded. Surgeries None recorded. Imaging None recorded. Medication Orders fluticasone propionate 50 mcg/actuati on nasal spray,suspe nsion [address] [id number], [address] [place], [address], 12:09:37 doxycycline hyclate [address] [id number], [address] [place], [address], 12:09:34 Patient TargetsNo targets recorded. Patient Instructions Encounter Date Encounter Id Patient Instructions Last Modified By Organization Details Last Modified Time 03/14/2022 [id number] Acute Sinusitis: Care Instructions [email or web address] Not available 03/14/2022 12:09:32 Reason for Referral None Reported. Results Created Date Observation Date Name Description Value Unit Range Abnormal Flag Note LastModifiedBy Organization Detail LastModifiedTime 03/14/20 22 03/14/2022 rapid flu (A+B) Unknown Analyte Normal = Negati ve Not Available tamera faulkner [address] [place], [address], 03/14/2022 11:32:39 03/14/20 22 03/14/2022 rapid flu (A+B) Unknown Analyte Normal = Negati ve Not Available 2099tamera faulkner [address] [place], [address], 03/14/2022 11:32:39 03/14/20 22 03/14/2022 rapid flu (A+B) Unknown Analyte negati ve Not Available 2099tamera faulkner [address] [place], [address], 03/14/2022 11:32:39 03/14/20 22 03/14/2022 rapid flu (A+B) Unknown Analyte negati ve Not Available 2099tamera faulkner [address] [place], [address], 03/14/2022 11:32:39 Result Notes None recorded. Problems Name Problem SNOMED Code Status Onset Date Resolution Date Notes Provider Name and Address Organization Details Recorded Time Depressive disorder 43290904 Active 022 RACHEL Hoyos - [facility] 11:31:40 Anxiety 53231154 Active 022 RACHEL Hoyos - [facility] [...] propionate 50 mcg/actuati on nasal spray,suspe nsion [place] 1 spray twice a day by intranasa [...] Last Updated DateTime 160.02 cm 35.4 kg/m2 03131.4 7 g 18 /min 68 /min 97.8 [degF] 96 % 96 % 132 mm[Hg] 88 mm[Hg] SHILO [facility] 11:34:45 Social History Question Answer Notes LastModified by Organizat ion Details LastModified Time Tobacco Smoking Status Current Every Day Smoker RACHEL Hoyos [facility] 03/14/2022 11:32:31 What Is Your Level Of Alcohol Consumption? Occasional Information not available 03/14/2022 How Much Tobacco Do You Smoke? 0.25 PPD [email or web address] Information not available 03/14/2022 Do You Use Any Illicit Or Recreational Drugs? No [email or web address] Information not available 03/14/2022 Have You Recently Traveled Abroad? No [email or web address] Information not available 03/14/2022 Do You Or Have You Ever Used Any Other Forms Of Tobacco Or Nicotine? No [email or web address] Information not available 03/14/2022 Sex: Unknown Functional Status None recorded. Mental Status None recorded. Family History Relationship Description Onset Age of this Age Resolved Age Notes LastModified by Organization Details LastModified Time Father No current problems or disability [email or web address] Not available 03/14 11:31:49 Mother No current problems or disability [email or web address] Not available 03/14 11:31:49 Medical History No medical history recorded. Gynecological HistoryNo gynecological history recorded. Obstetrics History GPAL:G 0 P 0 0 0 0 Past Encounters Encounter ID Performer Location Encounter Start Date Encounter Closed Date Diagnosis/Indication Diagnosis SNOMED-CT Code Diagnosis ICD10 Code Diagnosis Note [id number] [facility] [address] [facility] SHRUTHI Avendano [address] 12/23/2014 13:19:51 12/23/2014 14:31:35 [id number] [facility] [address] [place] [address] [place] [address] 03/29/2020 13:57:48 03/29/2020 18:20:10 [id number] [facility] [address] [place] [address] SHRUTHI Avendano [address] 02/28/2020 14:36:10 02/28/2020 16:53:45 [id number] [facility] [address] [place] [address] [place] [address] 07/17/2021 12:32:50 07/17/2021 13:50:01 [id number] [address] [address] [place] [address] [place] [address] 01/07/2021 08:32:19 01/07/2021 09:52:09 [id number] [facility] [address] [place] [address] [place] [address] 02/25/2021 08:04:27 02/25/2021 09:43:03 [id number] [address] [address] [place] [address] [place] [address] 06/24/2020 08:05:51 06/24/2020 08:44:00 [id number] DOROTA ISIDRO MD [address] [address] [facility] [place] [address] 03/14/2022 08:27:00 03/14/2022 12:12:43 Cough 51848591 R05.9 Acute sinusitis 74186101 J01.90 If your symptoms worsen or persist [...] Sahni Member ID Guarantor Name 01/07/2021 1 [facility] PL[facility] (MEDICAID HMO) [id number] Andressa M Hugo [id number] Andressa M Hugo 02/25/2021 1 [facility] PL[facility] (MEDICAID HMO) [id number] Andressa M Hugo [id number] Andressa M Hugo 07/17/2021 1 [facility] PL[facility] (MEDICAID HMO) [id number] Andressa M Hugo [id number] Andressa M Hugo 03/14/2022 1 [facility] PL[facility] (MEDICAID HMO) [id number] Andressa M Hugo [id number] Andressa M Hugo Notes Date Note [...] DOROTA ISIDRO MD [address] [place], [address], [place] - [facility] 03/14/2022 12:11:27 OBGyn Episode No OBEpisode recorded.
--- OUTSIDE RECORDS SUMMARY | 2024-06-28 16:39 | XMS_ITS | Clinical Summary ---
Author Organization [address] Address [address] [place] [phone] Phone Care Team Providers Care Rubber Roller Grinder Operator Name Role Phone Luis Daniel Rose MD Primary Care Provider +1- [phone] Encounters Date Type Department Care Team Description 04/24/2024 Lab Requisition [facility] Lab [address] [place] [phone] Luis Daniel Rose MD Anemia, unspecified 04/18/2024 Lab Requisition [facility] Lab [address] [place] [phone] Luis Daniel Rose MD Anemia, unspecified from [...] age to complete this topic Meningococcal B Vaccine Aged Out No l onger eligible based on patient's age to complete [...] HOSPITAL LAB RBC 4.40 3.80 - 4.80 M/mcL LAB HEMETOLOGY METHOD 04/18/2024 11:06 AM [facility] LAB Hemoglobin 13.0 11.5 - 16.0 g/dL LAB HEMETOLOGY METHOD 04/18/2024 11:06 AM [facility] LAB Hematocrit 40.7 35.0 - 47.0 % LAB HEMETOLOGY METHOD 04/18/2024 11:06 AM EST [facility] MCV 93.3 79.0 - 98.0 FL LAB HEMETOLOGY METHOD 04/18/2024 11:06 AM [facility] MCH 29.8 27.0 - 32.0 pcg LAB HEMETOLOGY METHOD 04/18/2024 11:06 AM [facility] LAB MCHC 31.9(L) 32.0 - 37.0 g/dL LAB HEMETOLOGY METHOD 04/18/2024 11:06 AM EST [facility] RDW 12.8 11.0 - 15.0 % LAB HEMETOLOGY METHOD 04/18/2024 11:06 AM [facility] LAB Platelets 365 130 - 400 K/mcL LAB HEMETOLOGY METHOD 04/18/2024 11:06 AM [facility] LAB MPV 10.3 7.0 - 11.0 FL LAB HEMETOLOGY METHOD 04/18/2024 11:06 AM EST [facility] NRBC 0.0 <1.0 % LAB HEMETOLOGY METHOD 04/18/2024 11:06 AM [facility] NRBC Absolute 0.00 <0.10 K/mcL LAB HEMETOLOGY METHOD 04/18/2024 11:06 AM [facility] Blood Venous blood specimen / Unknown Venipuncture / Unknown 04/18/2024 8:37 AM EST 04/18/2024 9:54 AM EST Luis Daniel Rose MD LAB BLOOD ORDERABLES Final Result [facility] [address] [place] [address], * (ABNORMAL) Comprehensive metabolic panel (04/18/2024 8:37 AM EST) Pathologist [facility] Sodium 136 133 - 145 mmol/L LAB CHEMISTRY METHOD 04/18/2024 11:02 AM [facility] Potassium 4.1 3.5 - 5.5 mmol/L LAB CHEMISTRY METHOD 04/18/2024 11:02 AM [facility] Chloride 103 96 - 110 [...] LAB CHEMISTRY METHOD 04/18/2024 11:02 AM EST [facility] Total Protein 6.7 6.0 - 8.0 g/dL LAB CHEMISTRY METHOD 04/18/2024 11:02 AM EST [facility] Albumin 3.2 3.2 - 5.0 g/dL LAB CHEMISTRY METHOD 04/18/2024 11:02 AM [facility] Total Bilirubin 0.9 0.0 - 1.4 mg/dL LAB CHEMISTRY METHOD 04/18/2024 11:02 AM EST [facility] Blood Venous blood specimen / Unknown Venipuncture / Unknown 04/18/2024 8:37 AM EST 04/18/2024 9:54 AM EST us Luis Daniel Rose MD LAB BLOOD ORDERABLES Final Result [facility] [address] [place] [address], from Last 3 Months Insurance [facility] [address] [address] [employer] [facility] Care Teams Rubber Roller Grinder Operator Relationship Specialty Start Date End Date Luis Daniel Rose MD [address] [place] [address] PCP - General Internal Medicine 04/18/24
== END 2024-06-28 14:23 | disposition home or self-care (01) ==
LOC: HO.HOSX 14:22
PROVIDERS: Visit Provider Physician Assistant
DX: Z13.89 Encounter for screening for other disorder (principal)

== ENCOUNTER 2024-06-29 13:29 | Outpatient (AMB) | payer OTHER, SELFPAY ==
--- NOTE | 2024-06-29 13:49 | A.OFFVIS_ITS ---
Intake Visit Reasons: PO - left VIRAJ 04/12/24 NE Intake Note: Andressa is a 58 year old female who presents today for a post operative appointment s/p Left VIRAJ 03/23/24. Patient reports jose ramon is deing well. She states that she is feeling a but sore since she might have over did it. Allergies azithromycin [From Zithromax Z-Isidoro] Allergy (Verified 06/29/24 13:56) Rash erythromycin base Adverse Reaction (Mild, Verified 06/29/24 13:56) dizzy HPI HPI PO - left VIRAJ 04/12/24 NE: Details: Ms. Arias is a 58-year-old female who presents the office today status post left total hip arthroplasty that was performed on 04/12/[address] Nichols. She has concerns about returning back to work as she is sitting at a computer for 5 hours and his friend of developing stiffness. Additionally, she is worried about the ergonomics of her desk setup. PFSH Medical History Osteoarthritis of left hip Anxiety Habitual snoring Obesity PCOS (polycystic ovarian syndrome) HTN (hypertension) Osteoarthritis Depression Mood disorder Surgical History History of carpal tunnel surgery of right wrist Hx of cholecystectomy Social History Household Members: Family Are you a primary resident care associate to a significant other at home: No Do you presently have visiting nurse or other home services: No Alcohol intake: current Alcohol intake frequency: a few times a week Patient Tobacco Use Status: Former Tobacco user e-Cigarette/Vaping Use: Currently Using service: No Current occupational status: employed 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 Able to perform straight leg raise. 5/5 strength with resisted hip flexion. NVI. Assessment & Plan Assessment & Plan (1) S/P total hip arthroplasty: Code(s): Z96.649 - Presence of unspecified artificial hip joint Category: Surgical Plan Ms. Arias is a 58-year-old female who presents the office today status post left total hip arthroplasty that was performed on 04/12/[address] Nichols. She has concerns about returning back to work as she is sitting at a computer for 5 hours and his friend of developing stiffness. Additionally, she is worried about the ergonomics of her desk setup. On the office today encouraged the patient to return back to work as she is working sedentary work only. She will resume her occupation once her FMLA runs out. In the meantime, she will continue with her home exercise program. She will follow-up in 2 months with repeat x-rays, sooner if needed. X-rays of the left hip which were obtained while in the office today and were reviewed by me, Chel Lozada PA-C, revealed intact left total hip arthroplasty with no acute periprosthetic fracture or dislocation. Orders: Orders XR hip LT w PEL1V Today M25.559 - Pain in unspecified hip Coding Level of Care Code Est Pt Level 3 (67049) Diagnoses S/P total hip arthroplasty Z96.649
--- OUTSIDE RECORDS SUMMARY | 2024-06-29 16:17 | XMS_ITS | Clinical Summary ---
Author Organization [address] Address [address] [place] [phone] Phone Care Team Providers Care Manager Secondary Name Role Phone Luis Daniel Rose MD Primary Care Provider +1- [phone] Encounters Date Type Department Care Team Description 04/24/2024 Lab Requisition [facility] Lab [address] [place] [phone] Luis Daniel Rose MD Anemia, unspecified 04/18/2024 Lab Requisition [facility] Lab [address] [place] [phone] Luis Daniel Rose MD Anemia, unspecified from [...] 5 season) 2023 01/29/2021, 01/08/2021 Influenza Vaccine (Season Ended) 2024 HIB Vaccines Aged Out No longer eligi [...] K/mcL LAB HEMETOLOGY METHOD 04/18/2024 11:06 AM [facility] LAB RBC 4.40 3.80 - 4.80 M/mcL LAB HEMETOLOGY METHOD 04/18/2024 11:06 AM [facility] Hemoglobin 13.0 11.5 - 16.0 g/dL LAB HEMETOLOGY METHOD 04/18/2024 11:06 AM [facility] LAB Hematocrit 40.7 35.0 - 47.0 % LAB HEMETOLOGY METHOD 04/18/2024 11:06 AM EST [facility] LAB MCV 93.3 79.0 - 98.0 FL LAB HEMETOLOGY METHOD 04/18/2024 11:06 AM [facility] MCH 29.8 27.0 - 32.0 pcg LAB HEMETOLOGY METHOD 04/18/2024 11:06 AM [facility] LAB MCHC 31.9(L) 32.0 - 37.0 g/dL LAB HEMETOLOGY METHOD 04/18/2024 11:06 AM EST [facility] LAB RDW 12.8 11.0 - 15.0 % LAB HEMETOLOGY METHOD 04/18/2024 11:06 AM [facility] Platelets 365 130 - 400 K/mcL LAB HEMETOLOGY METHOD 04/18/2024 11:06 AM [facility] MPV 10.3 7.0 - 11.0 FL LAB HEMETOLOGY METHOD 04/18/2024 11:06 AM EST [facility] LAB NRBC 0.0 <1.0 % LAB HEMETOLOGY METHOD 04/18/2024 11:06 AM [facility] NRBC Absolute 0.00 <0.10 K/mcL LAB HEMETOLOGY METHOD 04/18/2024 11:06 AM [facility] LAB Blood Venous blood specimen / Unknown Venipuncture / Unknown 04/18/2024 8:37 AM EST 04/18/2024 9:54 AM EST Luis Daniel Rose MD LAB BLOOD ORDERABLES Final Result [facility] [address] [place] [address], * (ABNORMAL) Comprehensive metabolic panel (04/18/2024 8:37 AM EST) Pathologist [facility] Sodium 136 133 - 145 mmol/L LAB CHEMISTRY METHOD 04/18/2024 11:02 AM [facility] Potassium 4.1 3.5 - 5.5 mmol/L LAB CHEMISTRY METHOD 04/18/2024 11:02 AM [facility] Chloride 103 96 - 110 mmol/L LAB CHEMISTRY METHOD 04/18/2024 11:02 AM [facility] CO2 27 21 - 32 mmol/L LAB CHEMISTRY METHOD 04/18/2024 11:02 AM [facility] Anion Gap 6 3 - 11 LAB CHEMISTRY METHOD 04/18/2024 11:02 AM [facility] Glucose 110(H) 70 - 100 mg/dL LAB CHEMISTRY METHOD 04/18/2024 11:02 AM [facility] BUN 11 5 - 25 mg/dL LAB CHEMISTRY METHOD 04/18/2024 11:02 AM [facility] Creatinine 0.73 0.50 - 1.10 mg/dL LAB CHEMISTRY METHOD 04/18/2024 11:02 AM [facility] LAB eGFR 97 >=60 mL/min/1. 73m2 LAB CHEMISTRY METHOD 04/18/2024 11:02 AM [facility] LAB Comment:Calculation based on the??Chronic Kidney Disease Epidemiology Collaboration (CKD-EPI) equation refit??without adjustment for race. BUN/Creatinine Ratio 15.1 LAB CHEMISTRY METHOD 04/18/2024 11:02 AM [facility] Calcium 9.1 8.5 - 10.5 mg/dL LAB CHEMISTRY METHOD 04/18/2024 11:02 AM [facility] AST (SGOT) 14 10 - 42 unit/L LAB CHEMISTRY METHOD 04/18/2024 11:02 AM [facility] ALT (SGPT) 20 10 - 60 unit/L LAB CHEMISTRY METHOD 04/18/2024 11:02 AM [facility] Alkaline Phosphatase 64 42 - 121 unit/L LAB CHEMISTRY METHOD 04/18/2024 11:02 AM EST [facility] Total Protein 6.7 6.0 - 8.0 g/dL LAB CHEMISTRY METHOD 04/18/2024 11:02 AM EST [facility] Albumin 3.2 3.2 - 5.0 g/dL LAB CHEMISTRY METHOD 04/18/2024 11:02 AM [facility] Total Bilirubin 0.9 0.0 - 1.4 mg/dL LAB CHEMISTRY METHOD 04/18/2024 11:02 AM EST [facility] Blood Venous blood specimen / Unknown Venipuncture / Unknown 04/18/2024 8:37 AM EST 04/18/2024 9:54 AM EST us Luis Daniel Rose MD LAB BLOOD ORDERABLES Final Result [facility] [address] [place] [address], from Last 3 Months Insurance [facility] [employer] [facility] Care Teams Manager Secondary Relationship Specialty Start Date End Date Luis Daniel Rose MD [address] [place] [address] PCP - General Internal Medicine 04/18/24
--- OUTSIDE RECORDS SUMMARY | 2024-06-29 16:17 | XMS_ITS | Encounter Summary ---
Author Organization [facility] Address [address] [place] [address] Care Team Providers Care [address] Man Name Role Phone Luis Daniel Rose MD Primary Care Provider +1- [phone] Encounter Details Date Type Department Care Team (Late st Contact Info) Description 04/18/2024 Lab Requisition [facility] - Main Lab [address] [place] [address] Luis Daniel Rose MD [address] [place], [place] [phone] Anemia, unspecified Social History Tobacco Use Types [...] LAB CHEMISTRY METHOD 04/18/2024 11:02 AM EST [facility] Potassium 4.1 3.5 - 5.5 mmol/L LAB CHEMISTRY METHOD 04/18/2024 11:02 AM EST [facility] Chloride 103 96 - 110 mmol/L LAB CHEMISTRY METHOD 04/18/2024 11:02 AM [facility] CO2 27 21 - 32 mmol/L LAB CHEMISTRY METHOD 04/18/2024 11:02 AM [facility] Anion Gap 6 3 - 11 LAB CHEMISTRY METHOD 04/18/2024 11:02 AM [facility] Glucose 110(H) 70 - 100 mg/dL LAB CHEMISTRY METHOD 04/18/2024 11:02 AM [facility] BUN 11 5 - 25 mg/dL LAB CHEMISTRY METHOD 04/18/2024 11:02 AM [facility] Creatinine 0.73 0.50 - 1.10 mg/dL LAB CHEMISTRY METHOD 04/18/2024 11:02 AM [facility] eGFR 97 >=60 mL/min/1. 73m2 LAB CHEMISTRY METHOD 04/18/2024 11:02 AM [facility] Comment:Calculation based on the??Chronic Kidney Disease Epidemiology Collaboration (CKD-EPI) equation refit??without adjustment for race. BUN/Creatinine Ratio 15.1 LAB CHEMISTRY METHOD 04/18/2024 11:02 AM [facility] Calcium 9.1 8.5 - 10.5 mg/dL LAB CHEMISTRY METHOD 04/18/2024 11:02 AM [facility] AST (SGOT) 14 10 - 42 unit/L LAB CHEMISTRY METHOD 04/18/2024 11:02 AM [facility] ALT (SGPT) 20 10 - 60 unit/L LAB CHEMISTRY METHOD 04/18/2024 11:02 AM [facility] Alkaline Phosphatase 64 42 - 121 unit/L LAB CHEMISTRY METHOD 04/18/2024 11:02 AM [facility] Total Protein 6.7 6.0 - 8.0 g/dL LAB CHEMISTRY METHOD 04/18/2024 11:02 AM [facility] Albumin 3.2 3.2 - 5.0 g/dL LAB CHEMISTRY METHOD 04/18/2024 11:02 AM [facility] Total Bilirubin 0.9 0.0 - 1.4 mg/dL LAB CHEMISTRY METHOD 04/18/2024 11:02 AM [facility] Blood Venous blood specimen / Unknown Venipuncture / Unknown 04/18/2024 8:37 AM EST 04/18/2024 9:54 AM EST Luis Daniel Rose MD LAB BLOOD ORDERABLES Final Result [facility] [address] [place] [address], * (ABNORMAL) Complete blood count (04/18/2024 8:37 AM EST) WBC 7.7 4.8 - 10.8 K/mcL LAB HEMETOLOGY METHOD 04/18/2024 11:06 AM [facility] RBC 4.40 3.80 - 4.80 M/[facility] LAB HEMETOLOGY METHOD 04/18/2024 11:06 AM [facility] Hemoglobin 13.0 11.5 - 16.0 g/dL LAB HEMETOLOGY METHOD 04/18/2024 11:06 AM [facility] Hematocrit 40.7 35.0 - 47.0 % LAB HEMETOLOGY METHOD 04/18/2024 11:06 AM [facility] MCV 93.3 79.0 - 98.0 FL LAB HEMETOLOGY METHOD 04/18/2024 11:06 AM [facility] MCH 29.8 27.0 - 32.0 pcg LAB HEMETOLOGY METHOD 04/18/2024 11:06 AM [facility] MCHC 31.9(L) 32.0 - 37.0 g/dL LAB HEMETOLOGY METHOD 04/18/2024 11:06 AM [facility] RDW 12.8 11.0 - 15.0 % LAB HEMETOLOGY METHOD 04/18/2024 11:06 AM EST [facility] Platelets 365 130 - 400 K/mcL LAB HEMETOLOGY METHOD 04/18/2024 11:06 AM EST [facility] MPV 10.3 7.0 - 11.0 FL LAB HEMETOLOGY METHOD 04/18/2024 11:06 AM EST [facility] NRBC 0.0 <1.0 % LAB HEMETOLOGY METHOD 04/18/2024 11:06 AM [facility] NRBC Absolute 0.00 <0.10 K/mcL LAB HEMETOLOGY METHOD 04/18/2024 11:06 AM [facility] Blood Venous blood specimen / Unknown Venipuncture / Unknown 04/18/2024 8:37 AM EST 04/18/2024 9:54 AM EST us Luis Daniel Rose MD LAB BLOOD ORDERABLES Final Result [facility] [address] [place] [address], documented in this encounter Visit Diagnoses Diagnosis Anemia, unspecified documented in this encounter Care Teams Drive Man Relationship Specialty Start Date End Date Luis Daniel Rose MD [address] [place] [address] PCP - General Internal Medicine 04/18/24 documented as of this encounter
--- OUTSIDE RECORDS SUMMARY | 2024-06-29 16:17 | XMS_ITS | Encounter Summary ---
Author Organization [facility] Address [address] [place] [address] Care Team Providers Care Global Account Director Name Role Phone Luis Daniel Rose MD Primary Care Provider +1- [phone] Encounter Details Date Type Department Care Team (Late st Contact Info) Description 04/24/2024 Lab Requisition [facility] - Main Lab [address] [place] [phone] Luis Daniel Rose MD [address] [place] [phone] Anemia, unspecified Social History Tobacco Use Types [...] unspecified documented in this encounter Care Teams Global Account Director Relationship Specialty Start Date End Date Luis Daniel Rose MD [address] [place] [address] PCP - General Internal Medicine 04/18/24 documented as of this encounter
== END 2024-06-29 13:56 | disposition home or self-care (01) ==
LOC: HO.HOS 13:30
PROVIDERS: PCP Internal Medicine; Visit Provider Physician Assistant
DX: Z47.1 Aftercare following joint replacement surgery (principal); Z96.642 Presence of left artificial hip joint
CPT/HCPCS: 99024

== ENCOUNTER → 2024-06-29 13:31 | Outpatient (BNV) | payer OTHER, SELFPAY | PROVIDERS: Visit Provider Radiology Diagnostic Radiology | DX: M25.552 Pain in left hip (principal) | CPT/HCPCS: 73502 ==

== ENCOUNTER 2024-06-29 13:43 | Outpatient (REF) | payer OTHER, SELFPAY ==
--- NOTE | ~2024-06-29 | XR_ITS ---
EXAMINATION: XR HIP 1 VIEW LEFT WITH PELVIS HISTORY: M25.559 - Pain in unspecified hip COMPARISON: Comparison is made with the prior examination dated 05/18/2024. FINDINGS: A single AP view of the pelvis and 2 views of the left hip are submitted. The patient is again noted to be status post left total hip arthroplasty. The orthopedic elements are in anatomic alignment. There is no radiographic evidence of loosening. There is no fracture or dislocation. The soft tissues are unremarkable. XR/XR hip LT w PEL1V IMPRESSION: Status post left total hip arthroplasty. Electronically signed by: Hi Pinedo MD 06/30/2024 08:15 AM EDT
--- OUTSIDE RECORDS SUMMARY | 2024-06-30 14:04 | XMS_ITS | Data Portability ---
Author Organization [facility] Address [address] [place] [phone] Assessment No assessment recorded. Plan of Treatment Reminders Order Date Submit Date Provider Last Modified By Organization Details Last Modified Time Details Appointments None recorded. Lab rapid flu (A+B) 2021 022 [email or web address] 1 [facility] [address] [place], [address], 12:09:32 Referral None recorded. Procedures None recorded. Surgeries None recorded. Imaging None recorded. Medication Orders fluticasone propionate 50 mcg/actuati on nasal spray,suspe nsion 2021 [facility] #[id number], [address] [place], [address], 12:09:37 doxycycline hyclate 100 mg capsule 2021 [facility][id number], [address] [place], [address], 12:09:34 Patient TargetsNo targets recorded. Patient Instructions Encounter Date Encounter Id Patient Instructions Last Modified By Organization Details Last Modified Time 03/14/2022 [id number] Acute Sinusitis: Care Instructions [email or web address] Not available 03/14/2022 12:09:32 Reason for Referral None Reported. Results Created Date Observation Date Name Description Value Unit Range Abnormal Flag Note LastModifiedBy Organization Detail LastModifiedTime 03/14/20 22 03/14/2022 rapid flu (A+B) Unknown Analyte Normal = Negati ve Not Available tamera faulkner [address] [place], [address], 03/14/2022 11:32:39 03/14/20 22 03/14/2022 rapid flu (A+B) Unknown Analyte Normal = Negati ve Not Available 2099tamera faulkner [address] [place], [address], 03/14/2022 11:32:39 03/14/20 22 03/14/2022 rapid flu (A+B) Unknown Analyte negati ve Not Available 2099tamera faulkner [address] [place], [address], 03/14/2022 11:32:39 03/14/20 22 03/14/2022 rapid flu (A+B) Unknown Analyte negati ve Not Available 2099tamera faulkner [address] [place], [address], 03/14/2022 11:32:39 Result Notes None recorded. Problems Name Problem SNOMED Code Status Onset Date Resolution Date Notes Provider Name and Address Organization Details Recorded Time Depressive disorder 39318110 Active 022 RACHEL Hoyos - [facility] 11:31:40 Anxiety 38069986 Active 022 RACHEL Hoyos - [facility] [...] propionate 50 mcg/actuati on nasal spray,suspe nsion [place] 1 spray twice a day by intranasa [...] Last Updated DateTime 160.02 cm 35.4 kg/m2 55095.4 7 g 18 /min 68 /min 97.8 [degF] 96 % 96 % 132 mm[Hg] 88 mm[Hg] SHILO Muse Daojia 11:34:45 Social History Question Answer Notes LastModified by Organizat ion Details LastModified Time Tobacco Smoking Status Current Every Day Smoker RACHEL Hoyos [facility] 03/14/2022 11:32:31 What Is Your Level Of Alcohol Consumption? Occasional [email or web address] Information not available 03/14/2022 How Much Tobacco Do You Smoke? 0.25 PPD Information not available 03/14/2022 Do You Use Any Illicit Or Recreational Drugs? No [email or web address] Information not available 03/14/2022 Have You Recently Traveled Abroad? No Information not available 03/14/2022 Do You Or Have You Ever Used Any Other Forms Of Tobacco Or Nicotine? No [email or web address] Information not available 03/14/2022 Sex: Unknown Functional Status None recorded. Mental Status None recorded. Family History Relationship Description Onset Age of this Age Resolved Age Notes LastModified by Organization Details LastModified Time Father No current problems or disability [email or web address] Not available 03/14 11:31:49 Mother No current problems or disability Not available 03/14 11:31:49 Medical History No medical history recorded. Gynecological HistoryNo gynecological history recorded. Obstetrics History GPAL:G 0 P 0 0 0 0 Past Encounters Encounter ID Performer Location Encounter Start Date Encounter Closed Date Diagnosis/Indication Diagnosis SNOMED-CT Code Diagnosis ICD10 Code Diagnosis Note [id number] [facility] [address] [facility] SHRUTHI Avendano [address] 12/23/2014 13:19:51 12/23/2014 14:31:35 [id number] [facility] [address] [place] [address] [place] [address] 03/29/2020 13:57:48 03/29/2020 18:20:10 [id number] [facility] [address] [place] [address] SHRUTHI Avendano [address] 02/28/2020 14:36:10 02/28/2020 16:53:45 [id number] [facility] [address] [place] [address] [place] [address] 07/17/2021 12:32:50 07/17/2021 13:50:01 [id number] [address] [address] [place] [address] [place] [address] 01/07/2021 08:32:19 01/07/2021 09:52:09 [id number] [facility] [address] [place] [address] [place] [address] 02/25/2021 08:04:27 02/25/2021 09:43:03 [id number] [address] [place] [address] [place] [address] 06/24/2020 08:05:51 06/24/2020 08:44:00 [id number] DOROTA ISIDRO MD [address] [facility] [place] [address] 03/14/2022 08:27:00 03/14/2022 12:12:43 Cough 84829574 R05.9 Acute sinusitis 60404294 J01.90 If your symptoms worsen or persist [...] Member ID Guarantor Name 01/07/[address] [facility] (MEDICAID HMO) [id number] Andressa M Hugo [id number] Andressa M Hugo 02/25/[address] [facility] (MEDICAID HMO) [id number] Andressa M Hugo [id number] Andressa M Hugo 07/17/[address] [facility] (MEDICAID HMO) [id number] Andressa M Hugo [id number] Nadressa M Hugo 03/14/[address] [facility] (MEDICAID HMO) [id number] Andressa M Hugo [id number] Andressa M Hugo Notes Date Note [...] DOROTA ISIDRO MD [address] [place], [address], [place] - [facility] 03/14/2022 12:11:27 OBGyn Episode No OBEpisode recorded.
--- OUTSIDE RECORDS SUMMARY | 2024-06-30 14:04 | XMS_ITS | Clinical Summary ---
Author Organization [address] Address [address] [place] [address] Phone Care Team Providers Care Hotel Services Sales Representative Name Role Phone Luis Daniel Rose MD Primary Care Provider +1- [phone] Encounters Date Type Department Care Team Description 04/24/2024 Lab Requisition [facility] [address] [place] [phone] Luis Daniel Rose MD Anemia, unspecified 04/18/2024 Lab Requisition [facility] Lab [address] [place] [phone] Luis Daniel Rose MD Anemia, unspecified from [...] M/mcL LAB HEMETOLOGY METHOD 04/18/2024 11:06 AM [facility] Hemoglobin 13.0 11.5 - 16.0 g/dL LAB HEMETOLOGY METHOD 04/18/2024 11:06 AM [facility] Hematocrit 40.7 35.0 - 47.0 % LAB HEMETOLOGY METHOD 04/18/2024 11:06 AM EST [facility] MCV 93.3 79.0 - 98.0 FL LAB HEMETOLOGY METHOD 04/18/2024 11:06 AM [facility] MCH 29.8 27.0 - 32.0 pcg LAB HEMETOLOGY METHOD 04/18/2024 11:06 AM [facility] MCHC 31.9(L) 32.0 - 37.0 g/dL LAB HEMETOLOGY METHOD 04/18/2024 11:06 AM EST [facility] RDW 12.8 11.0 - 15.0 % LAB HEMETOLOGY METHOD 04/18/2024 11:06 AM [facility] Platelets 365 130 - 400 K/mcL LAB HEMETOLOGY METHOD 04/18/2024 11:06 AM [facility] MPV 10.3 7.0 - 11.0 FL LAB HEMETOLOGY METHOD 04/18/2024 11:06 AM EST [facility] NRBC 0.0 <1.0 % LAB HEMETOLOGY METHOD 04/18/2024 11:06 AM [facility] NRBC Absolute 0.00 <0.10 K/mcL LAB HEMETOLOGY METHOD 04/18/2024 11:06 AM [facility] Blood Venous blood specimen / Unknown Venipuncture / Unknown 04/18/2024 8:37 AM EST 04/18/2024 9:54 AM EST Luis Daniel Rose MD LAB BLOOD ORDERABLES Final Result [facility] [address] [place] [address], * (ABNORMAL) Comprehensive metabolic panel (04/18/2024 8:37 AM EST) Pathologist [facility] Sodium 136 133 - 145 mmol/L LAB CHEMISTRY METHOD 04/18/2024 11:02 AM [facility] Potassium 4.1 3.5 - 5.5 mmol/L LAB CHEMISTRY METHOD 04/18/2024 11:02 AM [facility] Chloride 103 96 - 110 [...] LAB CHEMISTRY METHOD 04/18/2024 11:02 AM EST [facility] Total Protein 6.7 6.0 - 8.0 g/dL LAB CHEMISTRY METHOD 04/18/2024 11:02 AM EST [facility] Albumin 3.2 3.2 - 5.0 g/dL LAB CHEMISTRY METHOD 04/18/2024 11:02 AM [facility] Total Bilirubin 0.9 0.0 - 1.4 mg/dL LAB CHEMISTRY METHOD 04/18/2024 11:02 AM EST [facility] Blood Venous blood specimen / Unknown Venipuncture / Unknown 04/18/2024 8:37 AM EST 04/18/2024 9:54 AM EST us Luis Daniel Rose MD LAB BLOOD ORDERABLES Final Result [facility] [address] [place] [address], from Last 3 Months Insurance [facility] [employer] Care Teams Hotel Services Sales Representative Relationship Specialty Start Date End Date Luis Daniel Rose MD [address] [place] [address] PCP - General Internal Medicine 04/18/24
--- OUTSIDE RECORDS SUMMARY | 2024-06-30 14:04 | XMS_ITS | Encounter Summary ---
Author Organization [facility] Address [address] [place] [address] Care Team Providers Care Per Assessment Nurse Name Role Phone Luis Daniel Rose MD Primary Care Provider +1- [phone] Encounter Details Date Type Department Care Team (Late st Contact Info) Description 04/18/[address] [facility] - Main Lab [address] [place] [address] Luis Daniel Rose MD [address] [place], [place] [phone] Anemia, unspecified Social History Tobacco Use Types [...] LAB CHEMISTRY METHOD 04/18/2024 11:02 AM EST [facility] Potassium 4.1 3.5 - 5.5 mmol/L LAB CHEMISTRY METHOD 04/18/2024 11:02 AM EST [facility] Chloride 103 96 - 110 [...] Rose MD LAB BLOOD ORDERABLES Final Result [facility] [address] [place] [address], * (ABNORMAL) Complete blood count (04/18/2024 8:37 AM EST) WBC 7.7 4.8 - 10.8 K/mcL LAB HEMETOLOGY METHOD 04/18/2024 11:06 AM [facility] RBC 4.40 3.80 - 4.80 M/[facility] LAB HEMETOLOGY METHOD 04/18/2024 11:06 AM [...] LAB HEMETOLOGY METHOD 04/18/2024 11:06 AM EST [facility] Platelets 365 130 - 400 K/mcL LAB HEMETOLOGY METHOD 04/18/2024 11:06 AM EST [facility] MPV 10.3 7.0 - 11.0 FL LAB HEMETOLOGY METHOD 04/18/2024 11:06 AM EST [facility] NRBC 0.0 <1.0 % LAB HEMETOLOGY METHOD 04/18/2024 11:06 AM [facility] NRBC Absolute 0.00 <0.10 K/mcL LAB HEMETOLOGY METHOD 04/18/2024 11:06 AM [facility] Blood Venous blood specimen / Unknown Venipuncture / Unknown 04/18/2024 8:37 AM EST 04/18/2024 9:54 AM EST us Luis Daniel Rose MD LAB BLOOD ORDERABLES Final Result [facility] [address] [place] [address], documented in this encounter Visit Diagnoses Diagnosis Anemia, unspecified documented in this encounter Care Teams Per Assessment Nurse Relationship Specialty Start Date End Date Luis Daniel Rose MD [address] [place] [address] PCP - General Internal Medicine 04/18/24 documented as of this encounter
--- OUTSIDE RECORDS SUMMARY | 2024-06-30 14:04 | XMS_ITS | Encounter Summary ---
Author Organization [facility] Address [address] [place] [address] Care Team Providers Care Cooker Meal Name Role Phone Luis Daniel Rose MD Primary Care Provider +1- [phone] Encounter Details Date Type Department Care Team (Late st Contact Info) Description 04/24/2024 Lab Requisition [facility] - Main Lab [address] [facility] [place] [phone] Luis Daniel Rose MD [address] [place] [phone] Anemia, unspecified Social History Tobacco Use Types [...] unspecified documented in this encounter Care Teams Cooker Meal Relationship Specialty Start Date End Date Luis Daniel Rose MD [address] [place] [address] PCP - General Internal Medicine 04/18/24 documented as of this encounter
== END 2024-06-29 13:44 | disposition home or self-care (01) ==
LOC: HO.HOSX 13:43
PROVIDERS: Visit Provider Physician Assistant
DX: M25.552 Pain in left hip (principal); Z96.642 Presence of left artificial hip joint
CPT/HCPCS: 73502; 99212

== ENCOUNTER 2024-08-29 08:57 | Outpatient (REF) | payer OTHER, SELFPAY ==
--- NOTE | ~2024-08-29 | XR_ITS ---
CLINICAL HISTORY: M25.559 - Pain in unspecified hip 1 view pelvis Comparison: DX - XR PELVIS 1-2V - 05/18/24 09:05 EST Findings: No acute fracture or dislocation. Left total hip arthroplasty with intact hardware and alignment. Mild degenerative disease of the right hip with inferomedial joint space narrowing. Soft tissues are unremarkable. IMPRESSION: 1. Left total hip arthroplasty with intact hardware and alignment. 2. Mild degenerative disease of the right hip with inferomedial joint space narrowing. This document has been electronically signed by: Frank Stacy MD on 08/29/2024 22:43:46
== END 2024-08-29 08:58 | disposition home or self-care (01) ==
LOC: HO.HOSX 08:57
PROVIDERS: Visit Provider Physician Assistant
DX: M25.559 Pain in unspecified hip (principal)
CPT/HCPCS: 72170; 99212

== ENCOUNTER 2024-08-29 10:49 | Outpatient (AMB) | payer OTHER, SELFPAY ==
[2024-08-29 10:59] VITALS: BMI 36.9
--- NOTE | 2024-08-29 10:59 | A.OFFVIS_ITS ---
Vital Signs 08/29/24 10:59 Height 5 ft 2.5 in Weight 205 lb BMI 36.9 Intake Visit Reasons: OV-left VIRAJ 04/12/24 NE follow up Intake Note: Andressa is a 58 year old female who presents today for a post operative appointment s/p Left VIRAJ 03/23/24. Patient reports that her hip is feeling wonderful, no pain to report. She states no numbness or tingling, just sore when over doing it. Allergies azithromycin [From Zithromax Z-Isidoro] Allergy (Verified 08/29/24 11:02) Rash erythromycin base Adverse Reaction (Mild, Verified 08/29/24 11:02) dizzy HPI HPI OV-left VIRAJ 04/12/24 NE follow up : Details: Ms. Arias this is a 58-year-old female who is status post left total hip arthroplasty performed on 04/12/[address] Nichols. Patient is doing very well. She is very happy with her recovery progress. She denies any pain at this time. No additional complaints. [facility] Medical History Osteoarthritis of left hip Anxiety Habitual snoring Obesity PCOS (polycystic ovarian syndrome) HTN (hypertension) Osteoarthritis Depression Mood disorder Surgical History History of carpal tunnel surgery of right wrist Hx of cholecystectomy Social History Household Members: Family Are you a primary respite care provider to a significant other at home: No Do you presently have visiting nurse or other home services: No Alcohol intake: current Alcohol intake frequency: a few times a week Patient Tobacco Use Status: Former Tobacco user e-Cigarette/Vaping Use: Currently Using service: No Current occupational status: employed 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 No ecchymosis, erythema, or edema. Full hip ROM in all planes. No tenderness to palpation over the greater trochanteric bursa. Able to perform straight leg raise. NVI. Assessment & Plan Assessment & Plan (1) S/P total hip arthroplasty: Code(s): Z96.649 - Presence of unspecified artificial hip joint Category: Surgical Plan Ms. Arias this is a 58-year-old female who is status post left total hip arthroplasty performed on 04/12/[address] Nichols. Patient is doing very well. She is very happy with her recovery progress. She denies any pain at this time. No additional complaints. While in the office today, the patient is not experiencing any pain or concerns at this time. She has full range of motion. Occasionally she will have some soreness if she overdoes it but takes [id number]-[id number] medication and her pain has resolved. She will follow up in six-months at the 1 year postoperative yumiko. X-rays of the pelvis which were obtained while in the office today and were reviewed by me, Chel Lozada PA-C, revealed intact left total hip arthroplasty with no evidence of loosening or periprosthetic fracture. Alignment is satisfactory. Orders: Orders XR pelvis 1-2V Today M25.559 - Pain in unspecified hip Coding Level of Care Code Est Pt Level 3 (53431) Diagnoses S/P total hip arthroplasty Z96.649
--- OUTSIDE RECORDS SUMMARY | 2024-08-29 12:47 | XMS_ITS | Data Portability ---
Author Organization RACHEL layton [facility] Address [address] [place] [phone] Assessment No assessment recorded. Plan of Treatment Reminders Order Date Submit Date Provider Last Modified By Organization Details Last Modified Time Details Appointments None recorded. Lab rapid flu (A+B) 2021 022 [email or web address] [facility] [address] [place], [address], 12:09:32 Referral None recorded. Procedures None recorded. Surgeries None recorded. Imaging None recorded. Medication Orders fluticasone propionate 50 mcg/actuati on nasal spray,suspe nsion 2021 [id number], [address] [place], [address], 12:09:37 doxycycline hyclate 100 mg capsule 2021 [id number], [address] [place], [address], 12:09:34 Patient TargetsNo targets recorded. Patient Instructions Encounter Date Encounter Id Patient Instructions Last Modified By Organization Details Last Modified Time 03/14/2022 [id number] Acute Sinusitis: Care Instructions [email or web address] Not available 03/14/2022 12:09:32 Reason for Referral None Reported. Results Created Date Observation Date Name Description Value Unit Range Abnormal Flag Note LastModifiedBy Organization Detail LastModifiedTime 03/14/20 22 03/14/2022 rapid flu (A+B) Unknown Analyte Normal = Negati ve Not Available tamera faulkner [address] [place], [address], 03/14/2022 11:32:39 03/14/20 22 03/14/2022 rapid flu (A+B) Unknown Analyte Normal = Negati ve Not Available [address] [place], [address], 03/14/2022 11:32:39 03/14/20 22 03/14/2022 rapid flu (A+B) Unknown Analyte negati ve Not Available [address] [place], [address], 03/14/2022 11:32:39 03/14/20 22 03/14/2022 rapid flu (A+B) Unknown Analyte negati ve Not Available [address] [place], [address], 03/14/2022 11:32:39 Result Notes None recorded. Problems Name Problem SNOMED Code Status Onset Date Resolution Date Notes Provider Name and Address Organization Details Recorded Time Depressive disorder 35929036 Active 022 RACHEL Hoyos - [facility] 11:31:40 Anxiety 50525420 Active 022 RACHEL Hoyos - [facility] [...] propionate 50 mcg/actuati on nasal spray,suspe nsion [place] 1 spray twice a day by intranasa [...] Last Updated DateTime 160.02 cm 35.4 kg/m2 16803.4 7 g 18 /min 68 /min 97.8 [degF] 96 % 96 % 132 mm[Hg] 88 mm[Hg] SHILO RAMOS [employer] 11:34:45 Social History Question Answer Notes LastModified by [employer] Details LastModified Time Tobacco Smoking Status Current Every Day Smoker RACHEL Hoyos [employer] 03/14/2022 11:32:31 How Much Tobacco Do You Smoke? 0.25 PPD [email or web address] Information not available 03/14/2022 Have You Recently Traveled Abroad? No [email or web address] Information not available 03/14/2022 Sex: Unknown Functional Status Question Answer Note LastModified by [employer] Details LastModified Time Do you use any illicit or recreational drugs? No Information not available 03/14/2022 Do you or have you ever used any other forms of tobacco or nicotine? No Information not available 03/14/2022 What is your level of alcohol consumption? Occasional [email or web address] Information not available 03/14/2022 Mental Status None recorded. Family History Relationship Description Onset Age of this Age Resolved Age Notes LastModified by Organization Details LastModified Time Father No current problems or disability [email or web address] Not available 12/24 /2022 11:31:49 Mother No current problems or disability [email or web address] Not available 03/14 11:31:49 Medical History No medical history recorded. Gynecological HistoryNo gynecological history recorded. Obstetrics History GPAL:G 0 P 0 0 0 0 Past Encounters Encounter ID Performer Location Encounter Start Date Encounter Closed Date Diagnosis/Indication Diagnosis SNOMED-CT Code Diagnosis ICD10 Code Diagnosis Note [id number] [address] [address] [address] [place] [address] 12/23/2014 13:19:51 12/23/2014 14:31:35 [id number] [address] [address] [place] [address] 03/29/2020 13:57:48 03/29/2020 18:20:10 [id number] [address] [address] [address] [place] [address] 02/28/2020 14:36:10 02/28/2020 16:53:45 [id number] [facility] [address] [place] [address] 07/17/2021 12:32:50 07/17/2021 13:50:01 [id number] [facility] [address] [place] [address] 01/07/2021 08:32:19 01/07/2021 09:52:09 [id number] [address] [address] [address] [place] [address] 02/25/2021 08:04:27 02/25/2021 09:43:03 [id number] [address] [address] [place] [address] 06/24/2020 08:05:51 06/24/2020 08:44:00 [id number] DOROTA ISIDRO MD [address] [facility] [place] [address] 03/14/2022 08:27:00 03/14/2022 12:12:43 Cough 09028752 R05.9 Acute sinusitis 02143803 J01.90 If your symptoms worsen or persist [...] Recorded Advance Directives Directive None Recorded Payers Insurance Date Sequence Insurance Name Policy Number Policy Sahni Covered Member ID Sahni Member ID Guarantor Name 03/14/2022 1 [facility] PLAN (MEDICAID HMO) [id number] Andressa Arias [id number] Andressa Arias Notes Date Note Type [...] Fever last night DOROTA ISIDRO MD [address] [place], [address], [place] - [facility] 03/14/2022 12:11:27 OBGyn Episode No OBEpisode recorded.
== END 2024-08-29 11:15 | disposition home or self-care (01) ==
LOC: HO.HOS 10:50
PROVIDERS: PCP Internal Medicine; Visit Provider Physician Assistant
DX: Z47.1 Aftercare following joint replacement surgery (principal); Z96.642 Presence of left artificial hip joint
CPT/HCPCS: 99213

== ENCOUNTER → 2024-08-29 10:52 | Outpatient (BNV) | payer OTHER, SELFPAY | PROVIDERS: Visit Provider Student in an Organized Health Care Education/Training Program | DX: M25.552 Pain in left hip (principal); Z96.642 Presence of left artificial hip joint | CPT/HCPCS: 72170 ==

== ENCOUNTER 2025-03-01 08:20 | Outpatient (REF) | payer OTHER, SELFPAY | END 2025-03-01 08:21 | disposition home or self-care (01) | LOC: HO.HOSX 08:20 | PROVIDERS: Visit Provider Physician Assistant | DX: M25.552 Pain in left hip (principal); Z96.642 Presence of left artificial hip joint | CPT/HCPCS: 73502; 99212 ==

== ENCOUNTER 2025-03-01 10:43 | Outpatient (AMB) | payer OTHER, SELFPAY ==
--- NOTE | 2025-03-01 10:50 | A.OFFVIS_ITS ---
Intake Visit Reasons: OV-left VIRAJ 04/12/24 NE follow up w/ XR Intake Note: Andressa is a 59 year old female who presents today for a follow up of her left total hip arthroplasty done on 04/12/[address] Nichols. Patient reports she is doing very well. Allergies azithromycin (From Zithromax Z-Isidoro) Allergy (Verified 08/29/24 11:02) Rash erythromycin base Adverse Reaction (Mild, Verified 08/29/24 11:02) dizzy HPI HPI OV-left VIRAJ 04/12/24 NE follow up w/ XR: Details: The patient is a 59-year-old female who presents to the office today for her annual physical examination status post left total hip arthroplasty performed on 04/12/[address] Nichols. Patient states overall she is doing very well. She is resume back to her normal activities including Chuck. She denies any pain or discomfort. No additional complaints. [facility] Medical History Osteoarthritis of left hip Anxiety Habitual snoring Obesity PCOS (polycystic ovarian syndrome) HTN (hypertension) Osteoarthritis Depression Mood disorder Surgical History History of carpal tunnel surgery of right wrist Hx of cholecystectomy Social History Household Members: Family Are you a primary healthcare marketer to a significant other at home: No Do you presently have visiting nurse or other home services: No Alcohol intake: current Alcohol intake frequency: a few times a week Patient Tobacco Use Status: Former Tobacco user e-Cigarette/Vaping Use: Currently Using service: No Current occupational status: employed 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 No tenderness to palpation over the greater trochanteric bursa. 5/5 strength with resisted hip flexion, knee extension, abduction, and abduction. Able to perform straight leg raise. NVI. Psych Appearance: grossly normal Mental Status: mental status grossly normal Attitude: cooperative Assessment & Plan Assessment & Plan (1) S/P total hip arthroplasty: Code(s): Z96.649 - Presence of unspecified artificial hip joint Category: Surgical Plan The patient is a 59-year-old female who presents to the office today for her annual physical examination status post left total hip arthroplasty performed on 04/12/[address] Nichols. Patient states overall she is doing very well. She is resume back to her normal activities including Chuck. She denies any pain or discomfort. No additional complaints. While the office today I advised the patient she may continue resuming her normal activities. Encouraged low-impact exercises for overall joint health and to avoid high impact activities or repetitive heavy loading activities that may increase implant wear. I reminded the patient about the need of an antibiotic prior to dental procedures for prophylaxis. X-rays were obtained while in the office today of the left hip and pelvis which reveal intact left total hip arthroplasty. Patient will follow up in 1 year for her annual follow-up status post left total hip arthroplasty, sooner if needed. Orders: Orders XR hip LT min 2V Today M25.559 - Pain in unspecified hip Coding Level of Care Code Est Pt Level 3 (15278) Diagnoses S/P total hip arthroplasty Z96.649
== END 2025-03-01 11:49 | disposition home or self-care (01) ==
LOC: HO.HOS 10:44
PROVIDERS: Visit Provider Physician Assistant
DX: Z47.89 Encounter for other orthopedic aftercare (principal); Z96.649 Presence of unspecified artificial hip joint
CPT/HCPCS: 99213